=== PATIENT | female | born 1970 | race Caucasian/White ===

== ENCOUNTER 2024-10-07 08:55 | Outpatient (REF) | payer OTHER, SELFPAY ==
[2024-10-07 10:59] LABS: Estimated Average Glucose 108 mg/dL; Hemoglobin A1c % 5.4 % (<6.0)
[2024-10-07 11:35] LABS: Anion Gap 13 (12-20); Blood Urea Nitrogen 11 mg/dL (9-16); Calcium 9.7 mg/dL (8.4-10.2); Carbon Dioxide 27 mmol/L (22-29); Chloride 108 mmol/L (96-108); Estimated Glomerular Filt Rate > 60; Glucose Random 100 mg/dL (60-115); Potassium 4.5 mmol/L (3.3-5.1); Sodium 143 mmol/L (135-145)
[2024-10-07 11:43] LABS: Free T4 (Free Thyroxine) 0.97 ng/dL (0.71-1.85); Thyroid Stimulating Hormone 0.58 uIU/mL (0.32-4.0)
[2024-10-08 04:54] LABS: Triiodothyronine T3 Total 131 ng/dL (76-181)
[2024-10-08 18:09] LABS: Thyroid Peroxidase Antibodies 6 IU/mL (<9)
[2024-10-10 23:57] LABS: Thyroid Stimulating Immunoglob <89 % baseline (<140)
[2024-10-11 19:23] LABS: Thyrotropin Receptor Antibody <1.00 IU/L (<=2.00)
== END 2024-10-07 08:56 | disposition home or self-care (01) ==
LOC: HO.LAB 08:55
PROVIDERS: PCP Internal Medicine; Visit Provider Student in an Organized Health Care Education/Training Program
DX: E04.2 Nontoxic multinodular goiter (principal); E66.813 Obesity, class 3; Z68.41 Body mass index [BMI] 40.0-44.9, adult; E11.9 Type 2 diabetes mellitus without complications
CPT/HCPCS: 36415; 80048; 83036; 83520; 84439; 84443; 84445; 84480; 86376

== ENCOUNTER 2024-10-07 08:55 | Outpatient (AMB) | payer OTHER, SELFPAY ==
[2024-10-07 09:00] VITALS: BP 134/72; PULSE 62; O2SAT 98; BMI 43.4
--- NOTE | 2024-10-07 09:00 | A.OFFVIS_ITS ---
Vital Signs 3 10/07/24 09:00 Height 5 ft 7 in Weight 276 lb 14.409 oz BMI 43.4 BP 134/72 Blood Pressure Location Lt brachial Position Sitting Pulse 62 Pulse Source Pulse Oximeter Pulse Oximetry (%) 98 Oxygen Delivery Method Room Air Intake Visit Reasons: Thyroid goiter, obesity Intake Note: New patient present today for Thyroid goiter and obesity. Rn Baby Required: No Accompanied by: Self / Same As Patient Allergies ketoprofen Allergy (Mild, Verified 10/07/24 09:04) Swelling Medication List - Last Reconciled 10/07/24 by Cherry Martinez MD carvedilol 12.5 mg PO BID cholecalciferol (vitamin D3) 50 mcg PO DAILY dapagliflozin propanediol (Farxiga) 10 mg PO DAILY rosuvastatin 40 mg PO DAILY sacubitril-valsartan 24-26 mg (Entresto) 1 tab PO BID spironolactone 25 mg PO DAILY HPI Comments Details: 53-year-old female coming in today for initial evaluation of nontoxic multinodular goiter and obesity. Multinodular goiter Per patient was diagnosed with Graves disease 2009, was one year at that time , and then was trying for second , was seeing endo at [facility], was never started on any medicine. Per patient was reccomended radio active iodine but was a new mom so decided not to get it at the time . Was also diagnosed with thyroid nodules in 2022, per patient had US at [facility] and had FNA biopsy of 3 nodules per patient , per patient biopsy was benign , this was being managed by PCP, apparently had surveillance US in 2023 with stable nodules, I dont have any of these records , this is all per patient. Patient currently denies heat or cold intolerance, diarrhea or constipation, hair loss, anxiety, mood changes, changes in appearance of eyes or vision changes, tremors, increased diaphoresis or dry skin. ? Intermittent palpitations. Reports low energy Endorses some difficulty swallowing for a couple of years, pills , dry bites. Reports intermittent raspiness. No fullness or pressure sensation. Patient denies any history of childhood neck radiation. Denies having ever used lithium, amiodarone or biotin supplements. Patient denies any family history of thyroid cancer. Mother: thyroidectomy for nodules? Maternal GM: thyroidectomy for nodules? Sister : lobectomy for nodules? Was in [facility] during , got iodine prophylaxis. TSH 1.01 from Mar 2024 Obesity BMI 43.4 kg per m2 Current weight 276 lb no weight loss meds tried before Current weight is highest weight per patient Lowest weight she remembers was 235 lbs in 2019 when she was in her 40s achieved with keto diet lost 30 lbs Was overweight growing up, mother is now overweight , but was skinny growing up, siblings also skinny , both sisters Hystrectomy at 51 due to menorrhagia, ovaries intact, some intermittent hot flashes No history of DE or stroke. Comorbidites Type 2 DM , A1c 6.6% 02/21/24 seen on patients portal on phone done at [facility] down to 6.4 % in Mar 2024 with farxiga 10 mg daily , was on metformin in her 30s for PCOS and infertility, PCP prescribed Wegovy recently , was rejected by insurance HTN on spironolactone for 2 years , farxiga 10 mg daily since summer 2023 HLD on rosuvastatin PCOS, history of infertility Exercise : Walks an hour daily diet:currently avoiding carbs and focusing on more proteins Placing referral to field sales trainer. 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 [facility] Is not interested in weight loss surgery, apprehensive of it , motivated to lose weight with lifestyle modification and weight loss meds Physical exam General: sitting comfortably in no acute distress HEENT: normocephalic/atraumatic, , moist oral mucosa Neck: supple, symmetrical, Cardiac: normal heart sounds Pulm: normal breath sounds B/L, no added breath sounds Abd: not distended, no tenderness, no abdominal striae Extremities: no edema, Neuro: AAO x3, Speech: normal, no facial droop, moving all 4 extremities [facility] Medical History (Updated 10/07/24 @ 09:58 by Cherry Martinez MD) Diabetes mellitus Non-toxic multinodular goiter Obesity Surgical History (Updated 10/07/24 @ 09:07 by НАНА Carlton) History of hernia surgery H/O: hysterectomy H/O knee surgery Family History (Updated 10/07/24 @ 09:08 by АННА Carlton) Mother Uterine cancer Diabetes Father Heart attack Social History Alcohol intake: current Alcohol intake frequency: holidays/special occasions only Patient Tobacco Use Status: Never used Tobacco Assessment & Plan Assessment & Plan (1) Non-toxic multinodular goiter: Code(s): E04.2 - Nontoxic multinodular goiter Category: Medical Plan: 53-year-old female with no family history of thyroid cancer, however multiple family members with thyroid nodules, with the exposure to [place] in [facility], who received iodine prophylaxis coming in today to establish care for nontoxic multinodular goiter. Apparently this was diagnosed in 2022 and she has had FNA biopsy of most of her nodules, reportedly per patient was benign. Then had an ultrasound of the thyroid again last year in 2023 at [facility] which showed stable size of the nodules. All of this history is obtained from the patient, I do not have these records on me. We will obtain records from [facility]. At this time I will plan to repeat her thyroid ultrasound. She had normal TSH in March 2024, per patient she has also history of Graves disease diagnosed in 2009, where radioactive iodine was recommended but at that time she was and planning for another at age 41 so she did not want to go ahead with a it. Then she was lost to follow up. This was managed by endocrinology at [facility] at that time. Plan: -ordered TSH, free T4, total T3, TSH receptor, TSI and TPO antibodies -ordered ultrasound of the thyroid -obtain records of thyroid ultrasounds and FNA biopsy from [facility] -follow up in 6 weeks to discuss results (2) Obesity: Code(s): E66.9 - Obesity, unspecified Category: Medical Qualifiers: Body mass index: BMI 40.0-44.9 Obesity classification: adult class 3 (BMI >= 40) Obesity type: due to excess calories Serious obesity comorbidity presence: with serious comorbidity Qualified Code(s): E66.813 - Obesity, class 3; Z68.41 - Body mass index [BMI] 40.0-44.9, adult Plan: Patient with class 3 obesity with current BMI 43.4 kg per m2, current weight 276 lb which is patient's reported highest weight, with comorbidities of PCOS, hypertension, hyperlipidemia, type 2 diabetes mellitus, currently well- controlled on Farxiga. I reviewed with patient the importance of weight loss as it relates to decreasing the risk of worsening control of diabetes, cardiovascular disease, obstructive sleep apnea, arthritis. We reviewed the importance of decreasing total calorie consumption, minimizing fats and carbohydrates. We discussed the method of 500 calorie deficit per day using phone calorie apps such as Trippy Bandz or my fitness pal. Also placed referral to field sales trainer, she is very motivated to lose weight. She is already exercising with 1 hour walk daily. I have asked her to add resistance training to her exercise regimen about 2-3 days a week with weight lifting and resistance bands. Continue current aerobic activity. She is a candidate for weight loss surgery, however she is not interested in surgery at this time. She is very motivated to lose weight and is maintaining a good exercise regimen, plus some additional information giving regarding dietary education. In addition to lifestyle modification I would strongly believe that she is a good candidate for weight loss medications. I I would like to start her on Mounjaro which is a GLP 1/GI P agonist, patient would be an excellent candidate for this medication. No family history of thyroid cancer, no personal history of pancreatitis, no history of gallstones. No current alcohol use. This would be both for given diagnosis of type 2 diabetes mellitus as well as class 3 obesity. I discussed the adverse effects of GI intolerance, risk of pancreatitis and risk of medullary thyroid cancer seen in rodents but not human being. She has hypertension, hyperlipidemia, type 2 diabetes mellitus currently well- controlled on Farxiga and is at very high-risk of developing cardiovascular disease and diabetes and this medication we will result in about 15-20% weight loss which would be her target. She is not a good candidate for other weight loss medications which are less potent such as phentermine, as those only result in about 5% weight loss which is a short-term solution, 5% weight loss would not be getting her to her goal target. Plus weight management is a intermediate chronic treatment which requires medications that patients can be on safely for long periods of time. Plan: -start Mounjaro 2.5 mg weekly injection -lifestyle modification as advised above -field sales trainer referral placed -follow up in 6 weeks (3) Diabetes mellitus: Code(s): E11.9 - Type 2 diabetes mellitus without complications Category: Medical Qualifiers: Diabetes mellitus type: type 2 Diabetes mellitus intermediate insulin use: without intermediate use Diabetes mellitus complication status: without complication Qualified Code(s): E11.9 - Type 2 diabetes mellitus without complications Plan: Diagnosed in January 2024 when A1c was 6.6%, no long-term insulin use, no history of microvascular or macrovascular complications. Managed by PCP, most recent A1c 6.4% from March 2024. She was started on Farxiga 10 mg daily for both control of blood pressure as well it would help with management of her diabetes mellitus. Mounjaro is a GLP 1/GI P agonist that would help with weight management in this patient with a history of type 2 diabetes mellitus. Plan: -start Mounjaro 2.5 mg weekly injection -continue Farxiga 10 mg daily. Plan I spent 60 minutes in reviewing the record, seeing the patient and documenting in the medical record. Orders: Orders 2 Triiodothyronine T3 Total Today E04.2 - Nontoxic multinodular goiter Thyroid Stimulating Immunoglob Today E04.2 - Nontoxic multinodular goiter US thyroid Today E04.2 - Nontoxic multinodular goiter Basic Metabolic Panel Today E11.9 - Type 2 diabetes mellitus without complications Thyroid Stimulating Hormone Today E04.2 - Nontoxic multinodular goiter Free T4 (Free Thyroxine) Today E04.2 - Nontoxic multinodular goiter Thyrotropin Receptor Antibody Today E04.2 - Nontoxic multinodular goiter Thyroid Peroxidase Antibodies Today E04.2 - Nontoxic multinodular goiter Hemoglobin A1c Today E11.9 - Type 2 diabetes mellitus without complications Referrals 2 Nutrition/Dietitian Referral E66.813 - Obesity, class 3, Z68.41 - Body mass index [BMI] 40.0-44.9, adult Medications: New 2 tirzepatide (Mounjaro) for 4 weeks 2.5 mg (0.5 mL) subcut QWEEK 2 mL 3RF E11.9 - Type 2 diabetes mellitus without complications, E28.2 - Polycystic ovarian syndrome, E66.813 - Obesity, class 3, E78.5 - Hyperlipidemia, unspecified, I10 - Essential (primary) hypertension, Z68.41 - Body mass index [BMI] 40.0-44.9, adult Patient Instructions: For thyroid Do blood work Do ultrasound of the thyroid , someone will call you to schedule this Weight loss counselling ?Limit added sugars to less than 25 grams daily. There are 4.2 grams of sugar per teaspoon of sugar. A teaspoon of honey has 6 grams of sugar! Bread also can have more sugar than you think-check labels ?No soda or juices. Drink water, unsweetened iced tea or seltzer ?Limit eating out/take out or prepared meals to twice weekly at most ?Avoid red meat, hot dogs, doshi and deli meat. Substitute plant protein for animal protein as much as you can. Beans, nuts, tofu, soy milk ?Limit cheese to 1 ounce a few times weekly ?Eat high fiber foods like beans, apples and green veggies, salsa is a great snack with whole grain cracker like Wasa ?Look for the whole grain stamp when choosing bread etc. Aim for 48 grams of whole grains daily. Whole wheat does not equal whole grains! ?Don't keep tempting treats in the house. Go out once in a while for a treat. ?Don't eat anything deep fried or cream based-no sour cream Download the mark lose it and aim for 500 calories deficit per day to plan to lose 1 lb per week Start adding some weights to your exercise regimen 2-3 days a week Continue aerobic exercise with walking/jogging Referral to field sales trainer placed Start Mounjaro 2.5 mg weekly injection , please let me know when you do start it as I keep track of dates to uptitrate. Do labs Coding Level of Care Code New Pt Level 5 (42483) Diagnoses Non-toxic multinodular goiter E04.2 Class 3 severe obesity due to excess calories with serious comorbidity and body mass index (BMI) of 40.0 to 44.9 in adult E66.813; Z68.41 Body mass index: BMI 40.0-44.9 Obesity classification: adult class 3 (BMI >= 40) Obesity type: due to excess calories Serious obesity comorbidity presence: with serious comorbidity Type 2 diabetes mellitus without complication, without long-term current use of insulin E11.9 Diabetes mellitus type: type 2 Diabetes mellitus intermediate insulin use: without intermediate use Diabetes mellitus complication status: without complication Time Spent (min) 60
--- OUTSIDE RECORDS SUMMARY | 2024-10-07 09:29 | XMS_ITS | Data Portability ---
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 Plan of Treatment Reminders Order Date Submit Date Provider Last Modified By Organization Details Last Modified Time Details Appointments None recorded. Lab TSH, serum or plasma 2014 015 abolcun Not available 5 10:15:35 lipid panel, serum 2014 015 abolcun Not available 5 10:15:35 ESR (erythroc yte sedimenta tion rate), blood 2014 015 abolcun Not available 5 10:15:35 CBC w/ auto diff 2014 015 abolcun Not available 5 10:15:35 urinalysi s, complete 2014 015 abolcun Not available 5 10:15:35 CMP, serum or plasma 2014 015 abolcun Not available 5 10:15:35 rapid strep group A, throat 2013 014 broderick In-Office Order, Internal Use Only DO Not Attach Compendium DO Not Attach Compendium, Do Not Delete/merge, [id number] 4 12:34:37 Referral nutrition ist/dieti maribel referral 2014 015 broderick Not available 5 08:02:04 medical weight loss program referral - For assistanc e with weight loss. 2014 015 george Philippe MD, [address], [place], [address], 5 10:23:06 Procedures None recorded. Surgeries None recorded. Imaging x-ray, chest, 2 view 2014 015 [facility], [address], [place], [address], 5 10:50:56 ultrasoun d, axilla - for eval of left axillary swelling. 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 broderick Not available 09/10/2014 08:02:03 Patient Instructions Encounter Date Encounter Id Patient Instructions Last Modified By Organization Details Last Modified Time 12/01/2013 [id number] strep throat: care instructions george Not available 12/02/2013 16:20:12 sore throat: care instructions abolcun Not available 12/02/2013 16:20:12 09/02/2014 [id number] goiter: care instructions awychowski Not available 09/10/2014 08:02:03 starting a weight loss plan: care instructions broderick Not available 09/10/2014 08:02:03 Nutrition Referral and Weight Management Follow-up Information broderick Not available 09/10/2014 08:02:03 Reason for Referral Manager Philosophy/dietitian Refer ral for Body mass index 30+ - obesity Referring Physician: Levi Palumbo, [facility], Encounter Date: 09/02/2014 Medical Weight Loss Program Referral for Body mass index 30+ - obesity For assistance with weight loss. Referring Physician: Levi Palumbo [facility], Encounter Date: 09/02/2014 Results Created Date Observation Date Name Description Value Unit Range Abnormal Flag Note LastModifiedBy Organization Detail LastModifiedTime 12/02/19 14 12/01/2013 rapid strep group A, throa t Strep positi ve Not Available In-Office Order Internal Use Only DO Not Attach Compendium DO Not Attach Compendium, Do Not Delete/merge, [id number] 12/01/2013 11:30:23 03/16/20 14 05/13/2012 US soft tissu e head/ neck Final Result Name: IZZY NAYAK 4 Sex: F : 1970 Locati on: F Admitt ing Physic gayathri: Reques ting Physic gayathri: Levi garcia Exam: US-ST HEAD/N ROCIO 2012 08:18 EXAM: Thyroi d Ultras ound INDICA TION: Abnorm al thyroi d functi on tests, irregu lar menses TECHNI QUE: Real time ultras ound of the thyroi d is perfor med with a high-f requen cy transd ucer. No previo us US is availa ble for compar monae. Findin gs: Both lobes of the thyroi d are visual ized. Both lobes are enlarg ed and hetero geneou s in echote xture with increa sed diffus e vascul ar flow. The right lobe measur es 6.1 x 2.8 x 3.1 cm in length , height and width for a volume of 28 cc and the left lobe measur es 6.2 x 2.7 x 3.5 cm in length , height and width for a volume of 31 cc. The isthmu s measur es 1.0 cm. No focal masses or cysts are seen. Impres polly: Enlarg ed hetero geneou s thyroi d with diffus adwoa increa sed vascul ar flow may reflec t early Hashim julio's thyroi ditis or Graves ' diseas e. No focal masses identi fied. Interp reting Radiol ogist: Stacy yusuf MD Attend ing Radiol ogist: Stacy yusuf MD Finali zing Radiol ogist: Stacy yusuf MD Transc ribed Date: Finali zed Date: 2012 08:37 Dictat ed By: Stacy Ashraf MD, V Dictat ed Date/T gisel: 8:38 am Review ed By: Stacy Ashraf MD, V Signed By: Stacy Ashraf MD, V Signed Date/T gisel: 8:38 am Transc ribed By: GUSTAVO Transc ribed Date/T gisel: 8:38 am Patien t Class: Outpat ient build [facility] (Centralized Electronic Ordering - All Locations) Patient Can Go To The Location Of Their Choice, [id number] 04/07/2015 04:10:25 09/09/19 15 09/07/2014 mm digit al mammo bilat eral Final Result Name CLARISA MAGANA 4 Sex F 08 1970 Locati on F Admitt ing Physic gayathri Reques ting Physic gayathri Levi Horton ski Exam DIGITA L MAMMOG KLAUS DIAGNO STIC BILAT 09 08 2014 10 06 Histor y Palpab le findin g left axilla . A metall ic marker is placed over the palpab le left axilla ry findin g. Digita l diagno stic bilate ral mammog boogie was perfor med. In additi on to the routin e views a tangen tial spot magnif icatio n view of the palpab le findin g was taken. Compar monae is made with previo us from 2012. The breast tissue consis ts of scatte red fibrog landul ar densit ies (appro ximate ly 25-50 glandu lar). No suspic ious masses suspic ious cluste rs of calcif icatio ns or areas of myesha ectura l distor tion are seen in either breast . No eviden ce of axilla ry adenop athy. In the area of clinic al concer n there is predom inantl y fatty tissue with no suspic ious findin gs in this region . Ultras ound of the palpab le left axilla ry findin g was then perfor med. No eviden ce of suspic ious axilla ry lesion . There is predom inantl y fatty tissue in the area of clinic al concer n and the appear ance is consis tent with lipoma or access ory fibrog landul ar tissue . Impres polly 1. Bilate ral mammog boogie shows no findin gs to sugges t malign yoly. Predom inantl y fatty tissue in the left axilla ry region in the area of clinic al concer n. 2. Ultras ound of the palpab le findin g in the left axilla reveal s no suspic ious findin gs. The mammog raphic and sonogr aphic appear ance are sugges tive of lipoma or access ory breast tissue . Provid ed there are no concer burke change s clinic ally recomm end bilate ral screen ing mammog boogie in one year. BI-RAD S 2 (Benig n) Lay letter mailed to ag curry Comput er-aid ed detect ion (CAD) was utiliz ed in the interp retati on of this study. WSN RII-WA [id number]-[id number] 04 Interp reting Radiol ogist Aroldo Tobias MD Attend ing Radiol ogist Aroldo Tobias MD Finali zing Radiol ogist Aroldo Tobias MD Transc ribed Date 09 08 2014 10 Finali zed Date 09 08 2014 10 Dictat ed By: Aroldo Tobias MD Dictat ed Date/T gisel: 10:28 am Review ed By: Aroldo Tobias MD Signed By: Aroldo Tobias MD Signed Date/T gisel: 10:28 am Transc ribed By: GUSTAVO Transc riptio n Date/T gisel: 10:28 am Birads : Ag curry Class: Outpat ient build [facility] (Centralized Electronic Ordering - All Locations) Patient Can Go To The Location Of Their Choice, [id number] 04/07/2015 04:10:40 09/09/19 15 09/07/2014 US breas t left Final Result Name CLARISA MAGANA 4 Sex F 12 21 1970 Locati on F Admitt ing Physic gayathri Reques ting Physic gayathri Levi Horton ski Exam US-RADHA AST UNILAT LEFT 09 08 2014 10 22 Please refer to the report of the bilate ral diagno stic mammog klaus from the same date for detail s. WSN RII-WA S-[id number] 04 Interp reting Radiol ogist Aroldo Tobias MD Attend ing Radiol ogist Aroldo Tobias MD Finali zing Radiol ogist Aorldo Tobias MD Transc ribed Date 09 08 2014 11 49 Finali zed Date 09 08 2014 11 49 Dictat ed By: Aroldo Tobias MD Dictat ed Date/T gisel: 11:52 a Review ed By: Aroldo Tobias MD Signed By: Aroldo Tobias MD Signed Date/T gisel: 11:52 am Transc ribed By: GUSTAVO Transc ribed Date/T gisel: 11:52 am Patien t Class: Outpat ient build [facility] (Centralized Electronic Ordering - All Locations) Patient Can Go To The Location Of Their Choice, [id number] 04/07/2015 04:10:40 Result Notes None recorded. Problems Name Problem SNOMED Code Status Onset Date Resolution Date Notes Provider Name and Address Organization Details Recorded Time Acute pharyngi tis 777865000 Completed 09/02/2014 Levi Palumbo MD [address] [facility] [address], [place], [address] , [facility] 5 10:28:07 Streptoc occal sore throat 84196745 Completed 09/02/2014 Levi Palumbo MD [address] [facility] [address], [place], [address] , [facility] 5 10:28:07 Patient status finding [id number] Completed 201212/08/2013 RECORDED 11/21/19 13 9:22AM BY CHIKIS PALACIOS MA, ANNOTATI ON/ADDEN DUM Not Available [facility] 4 05:22:48 Cough 56931053 Completed 201312/08/2013 IMPRESSI ON: FOLLOWIN G A IV STEROID PULSE I SUSPECT THIS IS GERD RELATED VS REBOUND ALLERGY SYMPTOMS . REASSESS AFTER TRYING TO TREAT BOTH POSSIBIL ITIES.; RECORDED 08/29/19 14 2:30PM BY AMAN GRIGGS MA, ANNOTSAMY ON/ADDEN DUM Not Available [facility] 4 05:22:48 Influenz a vaccine needed 43721044007 06 Completed 201112/08/2013 RECORDED 04/10/20 12 1:59PM BY CHIKIS PALACIOS MA, OFFICE VISIT Not Available [facility] 4 05:22:48 Body mass index 30+ - obesity 601341011 Active Levi aPlumbo MD [address] [address], [place], [address] , [facility] 5 08:02:03 Mass of axilla 677533917 Active Levi Palumbo MD [address] [address], [place], [address] , [facility] 5 08:02:03 Mammogra phy abnormal 466332446 Active Levi Palumbo MD [address] [address], [place], [address] , [facility] 5 12:50:48 Thyroid function tests abnormal 432737583 Active 2013 IMPRESSI ON: U/S C/W EARLY THYROIDI TIS. LABS UNREMARK ABLE. HAS APPT WITH ENDO, WILL REPEAT LABS PRIOR.; RECORDED 08/29/19 14 2:36PM BY AMAN GRIGGS MA, OFFICE VISIT Not Available [facility] 4 05:22:48 Adult health examinat ion Completed 201309/02/2014 IMPRESSI ON: IMMUNIZA TION STATUS UTD WILL SCREEN BASED ON RISK FACTORS. REGULAR DENTAL CARE AND SEATBELT USE ADVISED. 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 CERVICAL AND BREAST CANCER SCREENIN G ARE UTD. ADVANCE DIRECTIV ES SURINDER [place], FORM PROVIDED .; RECORDED 08/29/19 14 3:38PM BY LEVI Carlton MD, OFFICE VISIT Levi Palumbo MD [address] [facility] [address], [place], [address] , [facility] 5 10:28:07 Patient status finding [id number] Completed 201211/11/2013 RECORDED 11/21/19 13 9:22AM BY CHIKIS PALACIOS MA, ANNOTATI ON/ADDEN DUM Not Available [facility] 4 14:00:59 Screenin g for malignan t neoplasm of breast Completed 201309/02/2014 RECORDED 08/29/19 14 2:38PM BY AMAN GRIGGS MA, OFFICE VISIT Levi Palumbo MD [address] [facility] [address], [place], [address] , [facility] 5 10:28:07 Screenin g for malignan t neoplasm of cervix Completed 201309/02/2014 RECORDED 08/29/19 14 2:36PM BY AMAN GRIGGS MA, OFFICE VISIT Levi Palubmo MD [address] [facility] [address], [place], [address] , [facility] 5 10:28:08 Displace ment of cervical interver tebral disc 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 REASSESS AFTER TRYING TO TREAT BOTH POSSIBIL ITIES.; RECORDED 08/29/19 14 2:30PM BY AMAN GRIGGS MA, ANNOTATI ON/ADDEN DUM Not Available [facility] 4 14:00:59 Allergic rhinitis 02154095 Active 2013 RECORDED 08/29/19 14 2:36PM BY AMAN GRIGGS MA, OFFICE VISIT Not Available [facility] 4 05:22:48 Influenz a vaccine needed 69842355215 06 Completed 201111/11/2013 RECORDED 04/10/20 12 1:59PM BY CHIKIS PALACIOS MA, OFFICE VISIT Not Available [facility] 4 14:00:59 Goiter 1840050 Active 2013 RECORDED 08/29/19 14 2:36PM BY AMAN GRIGGS MA, OFFICE VISIT Levi Palumbo MD [address] [facility] [address], [place], [address] , [facility] 5 08:02:03 Pure hypergly ceridemi a 661390432 Active 2013 IMPRESSI ON: WILL REASSESS .; RECORDED 08/29/19 14 3:39PM BY LEVI Carlton MD, OFFICE VISIT Levi Palumbo MD [address] [facility] [address], [place], [address] , [facility] 5 08:02:03 Freddie estevez 853576103 Active 2013 RECORDED 08/29/19 14 2:36PM BY AMAN GRIGGS MA, OFFICE VISIT Not Available [facility] 4 05:22:49 Patient status finding [id number] Completed 201309/02/2014 RECORDED 08/29/19 14 2:36PM BY AMAN GRIGGS MA, OFFICE VISIT Levi Palumbo MD [address] [facility] [address], [place], [address] , [facility] 5 10:28:07 Primary cardiomy opathy 38504206 Active 2013 STORY: PVC; IMPRESSI ON: ASYMPTOM ATIC. DR ROMAN LEFT THE AREA, PT HAS NOT ESTABLIS HED WITH NEW CARDIOLO GIST. 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 HEALTHIE R DIET AND EXERCISE HABITS ADVISED. ; RECORDED 08/29/19 14 3:38PM BY LEVI Carlton MD, OFFICE VISIT Not Available [facility] 4 05:22:49 Pain in limb 85918755 Completed 201309/02/2014 STORY: NL EMG AND MRI UNREMARK ABLE FOR NERVE COMPRESS ION; RECORDED 08/29/19 14 2:36PM BY AMAN GRIGGS MA, OFFICE VISIT Levi Palumbo MD [address] [facility] [address], [facility] [place], [address] , [facility] 5 10:28:44 Problem Notes None recorded. Procedures Surgical History Date Name Laterality Status Provider Name and Address Organization Details Recorded Time Other completed Chikis Palacios MA [facility] 09/02/2014 09:58:05 Imaging Results None recorded. Procedure Notes None recorded. Medical Equipment None Reported. Allergies No known drug allergies Medications Name Sig Start Date Stop Date Status Note LastModified by Organization Details LastModified Time Prilosec 20 mg capsule,d elayed release DAILY 08/28 completed RECORDED 4 2:52PM BY AMAN BRANTLEY MA, OFFICE VISIT; Not Available Not Available Not Available penicilli n V potassium 500 mg tablet Take 1 tablet every 12 hours by oral route for 10 days. 12/11 completed Not Available Not Available Not Available loratadin e 10 mg tablet DAILY 08/28 completed RECORDED 4 2:52PM BY AMAN BRANTLEY MA, OFFICE VISIT; Not Available Not Available Not Available multivita min DAILY active RECORDED 4 2:36PM BY AMAN BRANTLEY MA, OFFICE VISIT; Not Available Not Available Not Available Vitals Date Recorded Oxygen saturation Oxygen saturation in Arterial blood by Pulse oximetry Body weight Heart rate Body mass index (BMI) Body height Body temperature Systolic blood pressure Diastolic blood pressure Provider Name and Address Organization Details Last Updated DateTime 5 99 % 99 % 186703. 0925 g 84 /min 38.9 kg/m2 170.815 cm 98.5 [degF] 142 mm[Hg] 84 mm[Hg] Chikis Palacios MA [facility] 5 10:07:09 Date Recorded Oxygen saturation Oxygen saturation in Arterial blood by Pulse oximetry Body weight Body temperature Body height Body mass index (BMI) Heart rate Systolic blood pressure Diastolic blood pressure Provider Name and Address Organization Details Last Updated DateTime 4 99 % 99 % 049890. 79811 g 99.4 [degF] 170.815 cm 36.4 kg/m2 87 /min 120 mm[Hg] 79 mm[Hg] Chikis Palacios MA [facility] 4 11:30:23 Social History Question Answer Notes LastModified by Organizat ion Details LastModified Time Tobacco Smoking Status Never Smoker Not Available [facility] 03/02/2020 03:36:38 Do You Have An Advance Directive? Yes [id number] Information not available 03/02/2020 What Is Your Level Of Caffeine Consumption? Moderate Coffee [id number] Information not available 03/02/2020 What Type Of Diet Are You Following? REGULAR [id number] Information not available 03/02/2020 Which Illicit Or Recreational Drugs Have You Used? None [id number] Information not available 03/02/2020 Education 2 Year College Information not available 09/02/2014 Live Alone Or With Others? With Others Information not available 09/02/2014 How Many Children Do You Have? 2 [id number] Information not available 03/02/2020 Seat Belts Used Routinely Yes Information not available 09/02/2014 Do You Use Sunscreen Routinely? Yes [id number] Information not available 03/02/2020 Sex: Unknown Functional Status Question Answer Note LastModified by Organizat ion Details LastModified Time What is your level of alcohol consumption? Occasional [id number] Information not available 03/02/2020 Are you currently employed? 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 None [id number] Information not available 03/02/2020 Mental Status None recorded. Family History Relationship Description Onset Age of this Age Resolved Age Notes LastModified by Organization Details LastModified Time Mother Hypercholest erolemia awychowski Not available 09/02 10:30:39 Mother Hypertensive disorder awychowski Not available 09/02 10:30:39 Mother Malignant neoplasm of uterus awychowski Not available 09/02 10:30:39 Mother Disorder of thyroid gland awychowski Not available 09/02 10:30:39 Mother Diabetes mellitus awychowski Not available 09/02 10:30:39 Sister Disorder of thyroid gland awychowski Not available 09/02 10:30:39 Maternal Grandmother Disorder of thyroid gland awychowski Not available 09/02 10:30:39 Father Coronary arterioscler osis awychowski Not available 09/02 10:30:39 Medical History Condition Response Hyperthyroidism Y Gynecological History Statement/Question Response Date of Last Pap Smear Date of Last Colonoscopy Most Recent Mammogram Most Recent Bone Density Obstetrics History GPAL:G 0 P 0 0 0 0 Immunizations Vaccine Type Date Status Note Provider Nam e and Address Organization Details Recorded Time Tdap 9 completed Not Available [facility] 11/11/2013 13:49:14 influenza, seasonal, intradermal, preservative free 2 completed Not Available [facility] 11/11/2013 13:49:14 Past Encounters Encounter ID Performer Location Encounter Start Date Encounter Closed Date Diagnosis/Indication Diagnosis SNOMED-CT Code Diagnosis ICD10 Code Diagnosis Note [id number] Levi Palumbo MD Main Office [address] [address] 12/01/2013 11:15:09 12/01/2013 11:56:31 Acute pharyngitis [id number] Streptococ cristhian sore throat 64317171 [id number] [employer]ce [address] [facility] [place] [address] 04/10/2012 00:00:00 [id number] auto[employer]Comm erce [address] [place], [place] [address] 07/03/2012 00:00:00 [id number] auto[employer] erce [address] [facility] [place], [place] [address] 11/20/2012 00:00:00 [id number] auto[employer]Comm erce [address] [place] [place] [address] 08/28/2013 00:00:00 [id number] Levi Palumbo MD Main Office [address] [facility] [address] [place] [address] 09/02/2014 09:49:35 09/02/2014 10:55:39 Adult health examination 668045793 Immunizati on status utd, flu advised in the Fall. Regular dental and ophtho care advised as well as seatbelt and sunscreen use. Distracted driving discussed. Advance directives in place. Body mass index 30+ - obesity 827859893 Pure hyperglyceridemia 290695124 Will reassess and consider rx of >500. Goiter 4345192 Mass of axilla 125775729 ? lymph node vs lipoma vs other soft tissue mass. Depending on result may need surgical consultati on. Health Concerns Section Related Observation LastModified by Organization Detai ls LastModified Time None Recorded Concern Status LastModified by Organization Details LastModified Time None Recorded Advance Directives Directive Y: Payers Encounter Date Sequence Insurance Name Policy Number Policy Wang Covered Member ID Wang Member ID Guarantor Name 12/01/2013 1 [facility] (O) [id number] [id number] Izzy Thomas 09/02/2014 1 [facility] (PPO) [id number] Izzy Martha [id number] Izzy Martha OBGyn Episode No OBEpisode recorded.
== END 2024-10-07 09:58 | disposition home or self-care (01) ==
LOC: HO.ENCR 08:56
PROVIDERS: PCP Internal Medicine; Visit Provider Student in an Organized Health Care Education/Training Program
DX: E04.2 Nontoxic multinodular goiter (principal); E66.813 Obesity, class 3; Z68.41 Body mass index [BMI] 40.0-44.9, adult; E11.9 Type 2 diabetes mellitus without complications
CPT/HCPCS: 99205

== ENCOUNTER 2024-11-04 08:28 | Outpatient (AMB) | payer OTHER, SELFPAY ==
--- NOTE | 2024-11-04 08:34 | MHC.AMNUTRGE ---
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1) 4.5 mmol/L 10/07/24 Chloride, (96-108) 108 mmol/L 10/07/24 Carbon Dioxide, (22-29) 27 mmol/L 10/07/24 Calcium, (8.4-10.2) 9.7 mg/dL 10/07/24 LLH-Qmocwgf-Hb.Jeor Equation Height: 5 ft 7 in Weight: 263 lb Resting Metabolic Rate: 1838.54 Calculated Activity Level: Sedentary Calories Needed to Maintain Weight: 2206.25 Diagnosis Nutrition problem #1: food nutri know defi As related to (etiology) #1: diagnosis As evidenced by (sign/symptom) #1: high BMI (41.2 (11/21)) [facility] Medical History (Updated 10/07/24 @ 09:58 by Cherry Martinez MD) Diabetes mellitus Non-toxic multinodular goiter Obesity Surgical History (Updated 10/07/24 @ 09:07 by АННА Carlton) History of hernia surgery H/O: hysterectomy H/O knee surgery Family History (Updated 10/07/24 @ 09:08 by АННА Carlton) Mother Uterine cancer Diabetes Father Heart attack Social History (Updated 10/07/24 @ 09:10 by АННА Carlton) Alcohol intake: current Alcohol intake frequency: holidays/special occasions only Patient Tobacco Use Status: Never used Tobacco Assessment & Plan Assessment & Plan (1) Diabetes mellitus: Code(s): E11.9 - Type 2 diabetes mellitus without complications Category: Medical Qualifiers: Diabetes mellitus type: type 2 Diabetes mellitus buttermaker continuous churn insulin use: without buttermaker continuous churn use Diabetes mellitus complication status: without complication Qualified Code(s): E11.9 - Type 2 diabetes mellitus without complications Plan: Wt: 119 Kg ( 11/21 ) Est kcal needs as per MSJ: 2200 (40% carb, 30% protein/fat) Est fluid needs as per 25-30 ml/d: 3600 Est prot per day as per 1 g/kg bw: 120 Recommend fiber intake : 8-10 g per day and gradually increase to 25-28 g per day for women and 35-38 g for men or as tolerated Recommend sodium intake per day : less than 2300 mg Educated patient on: ( R = reviewed V = verbalizes understanding N/R = needs review N/A = not applicable Food sources of carbohydrate, adequate serving sizes and its role in various health conditions: R Differences between complex carbohydrates a simple carbohydrates, role of fiber in diet: R Hydration : R Lean protein sources of foods: R Differences between types of fats and role in diet (mono on saturated fat fatty acids, saturated fatty acids, trans fats): R V N/R Food sources of sodium in salt and healthy modifications for heart health in kidney health: R V R/V Vitamins and minerals: R V N/R Healthy plate method concept: R Physical activity: Benefits a precaution: R Hypoglycemia protocol (rule of 15): R V N/R Dietary prevention of Hyperglycemia: R Patient Instructions: Practice mindful eating Choose complex carbohydrates, reducing total carb to less than 60 g at meal (at least a serving of starchy vegetables, fruit and milk) following healthy plate method - see meal ideas Coding Level of Care Code Nutr Indiv Intake (52186) Diagnoses Type 2 diabetes mellitus without complication, without long-term current use of insulin E11.9 Diabetes mellitus type: type 2 Diabetes mellitus buttermaker continuous churn insulin use: without detention use Diabetes mellitus complication status: without complication Time Spent (min) 30
[2024-11-04 08:35] VITALS: BMI 41.2
--- OUTSIDE RECORDS SUMMARY | 2024-11-04 08:35 | XMS_ITS ---
Author Name [facility] Organization Unknown History of Medication Use Medication Directions Dispensed Refills Start Date End Date Stat us triamcinolone acetonide 40 mg/mL suspension for injection Take 40 mg by injection route. 04/04/2024 active triamcinolone acetonide 40 mg/mL suspension for injection active lidocaine (PF) 100 mg/5 mL (2 %) injection syringe active acetaminophen 300 mg-codeine 30 mg tablet TAKE 1-2 TABLETS BY MOUTH EVERY 6 HOURS NEEDED FOR PAIN active amoxicillin 500 mg capsule TAKE 1 CAPSULE BY MOUTH THREE TIMES DAILY active Entresto 24 mg-26 mg tablet TAKE 1 TABLET BY MOUTH TWICE DAILY active spironolactone 25 mg tablet TAKE 1 TABLET BY MOUTH DAILY active Problems Problem Status Onset Date Problem Type Date of Resoluti on Source Osteoarthritis of right knee joint active 2024-04-04 ProblemAct ENS_AONECT Encounters Encounter Type Encounter Reason Primary Diagnosis Location Date Ambulatory [facility] [place] 04/11/2024 Ambulatory [facility] 04/10/2024 Ambulatory [facility] [place] 04/08/2024 Ambulatory [facility] [place] 04/04/2024 Ambulatory [facility] [place] 04/04/2024 Ambulatory [facility] [place] 04/04/2024 Ambulatory [facility] [place] 04/04/2024 Ambulatory [facility] [place] 04/04/2024 Ambulatory [facility] [place] 03/31/2024 Ambulatory [facility] [place] 03/31/2024
--- OUTSIDE RECORDS SUMMARY | 2024-11-04 08:36 | XMS_ITS | Patient Health Record ---
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 FINDINGS: There is no evidence of acute or healing fracture, dislocation or bone lesion. Mild tricompartmental degenerative osteoarthritis but no evidence of osteochondral defect or intra-articular loose body. No evidence of joint effusion. IMPRESSION: Mild tricompartmental degenerative osteoarthritis but no acute abnormality. WSN: [id number] Ordering Physician: Onelia Daugherty Dictated By: Parmjit JIMENEZ, Mj Tejada Hemoglobin [id number] Reviewed date:04/24/2024 10:53:00 AM Interpretation: Performing Lab:[facility], [address] [facility], Phone - [phone], Director - Kevin Notes/Report: Hemoglobin A1c 6.4 4.8-5.6 % . Prediabetes: 5.7 - 6.4 Diabetes: >6.4 Glycemic control for adults with diabetes: <7.0 Magnesium-[id number] Reviewed date:04/24/2024 10:53:00 AM Interpretation: Performing Lab:[facility], [facility], Phone - [phone], Director - MDJodry Notes/Report: Magnesium 2.1 1.6-2.3 mg/dL CBC With Differential/Platel et-[id number] Reviewed date:04/24/2024 10:53:00 AM Interpretation: Performing Lab:[facility], [address] [place] [address], Phone - [phone], Director - MDJodry Notes/Report: WBC 14.3 3.4-10.8 x10E3/uL RBC 5.28 3.77-5.28 x10E6/uL Hemoglobin 15.6 11.1-15.9 g/dL Hematocrit 46.5 34.0-46.6 % MCV 88 79-97 fL MCH 29.5 26.6-33.0 pg MCHC 33.5 31.5-35.7 g/dL RDW 13.4 11.7-15.4 % Platelets 273 150-450 x10E3/uL Neutrophils 61 Not Estab. % Lymphs 31 Not Estab. % Monocytes 6 Not Estab. % Eos 1 Not Estab. % Basos 0 Not Estab. % Neutrophils (Absolute) 8.7 1.4-7.0 x10E3/uL Lymphs (Absolute) 4.5 0.7-3.1 x10E3/uL Monocytes(Absolute) 0.8 0.1-0.9 x10E3/uL Eos (Absolute) 0.2 0.0-0.4 x10E3/uL Baso (Absolute) 0.1 0.0-0.2 x10E3/uL Immature Granulocytes 1 Not Estab. % Immature Grans (Abs) 0.1 0.0-0.1 x10E3/uL Albumin/Creatinine Ratio,Uri ne-[id number] Reviewed date:04/24/2024 10:53:00 AM Interpretation: Performing Lab:[facility] [address] [place] [address], Phone - [phone], Director - MDJodry Notes/Report: Creatinine, Urine 109.0 Not Estab. mg/dL Albumin, Urine 16.2 Not Estab. ug/mL Alb/Creat Ratio 15 0-29 mg/g creat Normal: 0 - 29 Moderately increased: 30 - 300 Severely increased: >300 B-Type Natriuretic Peptide-1 49465 Reviewed date:04/24/2024 10:53:00 AM Interpretation: Performing Lab:[facility], [address] [place] [address], Phone - [phone], Director - Kevin Notes/Report: B-Type Natriuretic Peptide 14.5 0.0-100.0 pg/m L Siemens ADVIA Centaur XP methodology Comp. Metabolic Panel (14)-3 Reviewed date:04/24/2024 10:53:00 AM Interpretation: Performing Lab:[facility], [address] [place] [address], Phone - [phone], Director - Kevin Notes/Report: Glucose 75 70-99 mg/dL BUN 12 6-24 mg/dL Creatinine 0.74 0.57-1.00 mg/dL eGFR 97 >59 mL/min/1.73 BUN/Creatinine Ratio 16 9-23 Sodium 137 134-144 mmol/L Potassium 4.7 3.5-5.2 mmol/L Chloride 99 96-106 mmol/L Carbon Dioxide, Total 23 20-29 mmol/L Calcium 9.6 8.7-10.2 mg/dL Protein, Total 7.2 6.0-8.5 g/dL Albumin 4.5 3.8-4.9 g/dL Globulin, Total 2.7 1.5-4.5 g/dL Bilirubin, Total 0.7 0.0-1.2 mg/dL Alkaline Phosphatase 115 44-121 IU/L AST (SGOT) 14 0-40 IU/L ALT (SGPT) 14 0-32 IU/L LP+Non-HDL Cholesterol-42464 5 Reviewed date:04/24/2024 10:53:00 AM Interpretation: Performing Lab:[address], Phone - [phone], Director - Kevin Notes/Report: Cholesterol, Total 140 100-199 mg/dL Triglycerides 120 0-149 mg/dL HDL Cholesterol 59 >39 mg/dL VLDL Cholesterol Pedro Pablo 21 5-40 mg/dL LDL Chol Calc (NIH) 60 0-99 mg/dL Non-HDL Cholesterol 81 0-129 mg/dL UA/M w/rflx Culture, Routine -[id number] Reviewed date:04/24/2024 10:53:00 AM Interpretation: Performing Lab:[facility], [address] [place] [address], Phone - [phone], Director - Kevin Notes/Report: Specific [place] 1.017 1.005-1.030 pH 5.5 5.0-7.5 Urine-Color Yellow Yellow Appearance Clear Clear WBC Esterase Trace Negative Protein Negative Negative/Trace Glucose Negative Negative Ketones Negative Negative Occult Blood Negative Negative Bilirubin Negative Negative Urobilinogen,Semi-Qn 0.2 0.2-1.0 mg/dL Nitrite, Urine Negative Negative Microscopic Examination See below: Micr oscopic was indicated and was performed. Urinalysis Reflex This speci men has reflexed to a Urine Culture. WBC 0-5 0 - 5 /hpf RBC None seen 0 - 2 /hpf Epithelial Cells (non renal) 0-10 0 - 10 /hpf Casts None seen None seen /lpf Bacteria Few None seen/Few Urine Culture, Routine Final report Result 1 Mixed urogenital scott Greater than 100,000 colony forming units per mL TSH reflex to [id number] Reviewed date:04/24/2024 10:53:00 AM Interpretation: Performing Lab:[facility] [place], [address] [place] [address], [place], Phone - [phone], Director - Kevin Notes/Report: TSH 1.100 0.450-4.500 uIU/mL US Thyroid Reviewed date:05/23/2024 11:19:24 AM Interpretation: Performing Lab: Notes/Report: US Soft Tissue Reviewed date:11/07/2023 09:58:53 PM Interpretation: Performing Lab: Notes/Report: US Soft Tissue Head/Neck INDICATION/CLINICAL QUESTION: Nontoxic thyroid nodule. COMPARISON: 05/14/2012 FINDINGS: RIGHT THYROID LOBE: 6.9 x 3.2 x 4.2 cm, volume 48 cc. * 1.9 x 1.3 x 1.7 cm anterior midportion poorly marginated solid iso to slightly hyperechoic nodule without echogenic foci (TR 3). * The technologist measured a 2.6 cm lesion of the posterior lower pole but review of the cine loop suggests that this is artifactual rather than a true nodule. LEFT THYROID LOBE: 6.9 x 3.1 x 3.5 cm, volume 30 cc. * 1.1 x 0.7 x 1.1 cm poorly marginated solid wide nearly isoechoic lesion without echogenic foci (TR 3) ISTHMUS: Thickness: 1.4 cm. IMPRESSION: Diffusely enlarged thyroid. 1.9 cm TR 3 lesion of the right lobe. Recommend follow-up ultrasound in one year per TiRADS criteria (reference below). TI-RADS 2017 reference: Tiffanysler FN, Wood WD, Shakir EG, et al. ACR Thyroid Imaging, Reporting and Data System (TI-RADS): White Paper of the ACR TI-RADS Committee. J Am Charmaine Radiol. Volume 14, Issue 5 , 587 595. https://doi.org/10.1016/j.jacr.2017.01.046 ACR TI-RADS recommendations: TR3 (3 points): FNA if ? 2.5 cm, follow-up if 1.5-2.4 cm in 1, 3 and 5 years. TI-RADS calculator: http://tiradscalculator.com/ WSN: [id number] Ordering Physician: Onelia Daugherty Dictated By: Saman Dumont MD Knee RT WO Reviewed date:04/07/2024 11:43:02 AM Interpretation: Performing Lab: Notes/Report: Hemoglobin [id number] Reviewed date:02/23/2024 08:32:31 AM Interpretation: Performing Lab:[facility], [address] [place] [address], Phone - [phone], Director - Kevin Notes/Report: Hemoglobin A1c 6.6 4.8-5.6 % . Prediabetes: 5.7 - 6.4 Diabetes: >6.4 Glycemic control for adults with diabetes: <7.0 B-Type Natriuretic Peptide-1 95039 Reviewed date:02/23/2024 08:32:31 AM Interpretation: Performing Lab:[facility], [address] [place] [address], Phone - [phone], Director - Kevin Notes/Report: B-Type Natriuretic Peptide 4.1 0.0-100.0 pg/m L Siemens ADVIA Centaur XP methodology Comp. Metabolic Panel (14)-3 51842 Reviewed date:02/23/2024 08:32:31 AM Interpretation: Performing Lab:[facility], [address] [place] [address], Phone - [phone], Director - Kevin Notes/Report: Glucose 98 70-99 mg/dL BUN 16 6-24 mg/dL Creatinine 0.78 0.57-1.00 mg/dL eGFR 91 >59 mL/min/1.73 BUN/Creatinine Ratio 21 9-23 Sodium 141 134-144 mmol/L Potassium 4.7 3.5-5.2 mmol/L Chloride 102 96-106 mmol/L Carbon Dioxide, Total 22 20-29 mmol/L Calcium 10.1 8.7-10.2 mg/dL Protein, Total 7.7 6.0-8.5 g/dL Albumin 4.6 3.8-4.9 g/dL Globulin, Total 3.1 1.5-4.5 g/dL Bilirubin, Total 0.5 0.0-1.2 mg/dL Alkaline Phosphatase 113 44-121 IU/L AST (SGOT) 15 0-40 IU/L ALT (SGPT) 22 0-32 IU/L LP+Non-HDL Cholesterol-04858 5 Reviewed date:02/23/2024 08:32:31 AM Interpretation: Performing Lab:[facility], [address] [place] [address], Phone - [phone], Director - Kevin Notes/Report: Cholesterol, Total 234 100-199 mg/dL Triglycerides 182 0-149 mg/dL HDL Cholesterol 53 >39 mg/dL VLDL Cholesterol Pedro Pablo 33 5-40 mg/dL LDL Chol Calc (NIH) 148 0-99 mg/dL Non-HDL Cholesterol 181 0-129 mg/dL CR Knee RT 3 View Reviewed date:03/04/2024 03:23:31 PM Interpretation: Performing Lab: Notes/Report: Hemoglobin [id number] Reviewed date:08/17/2024 02:52:01 PM Interpretation: Performing Lab:[facility], [address] [place] [address], Phone - [phone], Director - MDGiseledry Notes/Report: Hemoglobin A1c 6.0 4.8-5.6 % . Prediabetes: 5.7 - 6.4 Diabetes: >6.4 Glycemic control for adults with diabetes: <7.0 Vitamin [id number] Reviewed date:08/17/2024 02:52:01 PM Interpretation: Performing Lab:[facility], [address] [place] [address], Phone - [phone], Director - Kevin Notes/Report: Vitamin B12 004 159-1808 pg/mL Urinalysis, Complete-614246 Reviewed date:08/17/2024 02:52:01 PM Interpretation: Performing Lab:[facility], Phone - [phone], Director - Kevin Notes/Report: Specific [place] >=1.030 1.005-1.030 pH 5.5 5.0-7.5 Urine-Color Yellow Yellow Appearance Clear Clear WBC Esterase Negative Negative Protein Negative Negative/Trace Glucose 3+ Negative Ketones Negative Negative Occult Blood Negative Negative Bilirubin Negative Negative Urobilinogen,Semi-Qn 0.2 0.2-1.0 mg/dL Nitrite, Urine Negative Negative Microscopic Examination Micr oscopic follows if indicated. Microscopic Examination See below: Micr oscopic was indicated and was performed. WBC 0-5 0 - 5 /hpf RBC None seen 0 - 2 /hpf Epithelial Cells (non renal) 0-10 0 - 10 /hpf Casts None seen None seen /lpf Bacteria Moderate None seen/Few Testosterone-[id number] Reviewed date:08/17/2024 02:52:01 PM Interpretation: Performing Lab:[facility] [address] [place] [address], Phone - [phone], Director Ayla Brown Notes/Report: Testosterone 4 4-50 ng/dL Luteinizing Hormone(LH)-0042 83 Reviewed date:08/17/2024 02:52:01 PM Interpretation: Performing Lab:[facility] [address] [place] [address], Phone - [phone], Director Ayla Brown Notes/Report: LH 16.5 Adult Female Range Follicular phase 2.4 - 12.6 Ovulation phase 14.0 - 95.6 Luteal phase 1.0 - 11.4 Postmenopausal 7.7 - 58.5 FSH-[id number] Reviewed date:08/17/2024 02:52:01 PM Interpretation: Performing Lab:[facility] [address] [place] [address], Phone - [phone], Director Ayla Brown Notes/Report: FSH 8.7 Adult Female Range Follicular phase 3.5 - 12.5 Ovulation phase 4.7 - 21.5 Luteal phase 1.7 - 7.7 Postmenopausal 25.8 - 134.8 Progesterone-975698 Reviewed date:08/17/2024 02:52:01 PM Interpretation: Performing Lab:[facility] [address] [place] [address], Phone - [phone], Director - MDJodry Notes/Report: Progesterone 0.4 Follicular phase 0.1 - 0.9 Luteal phase 1.8 - 23.9 Ovulation phase 0.1 - 12.0 First trimester 11.0 - 44.3 Second trimester 25.4 - 83.3 Third trimester 58.7 - 214.0 Postmenopausal 0.0 - 0.1 Estrogens, Total-253671 Reviewed date:08/17/2024 02:52:01 PM Interpretation: Performing Lab:[facility], [address] [facility], [place], Phone - [phone], Director - MDAngeliney Notes/Report: Estrogens, Total 348 Prepubertal < 40 Female Cycle: 1-10 Days 16 - 328 11-20 Days 34 - 501 21-30 Days 48 - 350 Post-Menopausal 40 - 244 CBC With Differential/Platel et-[id number] Reviewed date:08/17/2024 02:52:01 PM Interpretation: Performing Lab:[facility], [address] [facility], [place], Phone - [phone], Director - Kevin Notes/Report: WBC 10.8 3.4-10.8 x10E3/uL RBC 5.12 3.77-5.28 x10E6/uL Hemoglobin 14.8 11.1-15.9 g/dL Hematocrit 43.9 34.0-46.6 % MCV 86 79-97 fL MCH 28.9 26.6-33.0 pg MCHC 33.7 31.5-35.7 g/dL RDW 13.0 11.7-15.4 % Platelets 304 150-450 x10E3/uL Neutrophils 65 Not Estab. % Lymphs 25 Not Estab. % Monocytes 7 Not Estab. % Eos 2 Not Estab. % Basos 0 Not Estab. % Neutrophils (Absolute) 7.2 1.4-7.0 x10E3/uL Lymphs (Absolute) 2.7 0.7-3.1 x10E3/uL Monocytes(Absolute) 0.7 0.1-0.9 x10E3/uL Eos (Absolute) 0.2 0.0-0.4 x10E3/uL Baso (Absolute) 0.0 0.0-0.2 x10E3/uL Immature Granulocytes 1 Not Estab. % Immature Grans (Abs) 0.1 0.0-0.1 x10E3/uL Vitamin D, 49-[id number] Reviewed date:08/17/2024 02:52:02 PM Interpretation: Performing Lab:[facility], Phone - [phone], Director - Kevin Notes/Report: Vitamin D, 25-Hydroxy 32.9 30.0-100.0 ng/mL Vitamin D deficiency has been defined by the [place] of [employer] and an Endocrine Society practice guideline as a level of serum 25-OH vitamin D less than 20 ng/mL (1,2). The Endocrine Society went on to further define vitamin D insufficiency as a level between 21 and 29 ng/mL (2). 1. IOM ([place] of [employer]). 2010. Dietary reference intakes for calcium and D. [place]: The National Academies Press. 2. Latasha MF, Digna MARSHALL, Nasim JULIO, et al. Evaluation, treatment, and prevention of vitamin D deficiency: an Endocrine Society clinical practice guideline. JCEM. 2010; 96(7):1911-30. Albumin/Creatinine Ratio,Uri ne-[id number] Reviewed date:08/17/2024 02:52:02 PM Interpretation: Performing Lab:[facility] [place], [address] [place] [address], Phone - [phone], - Kevin Notes/Report: Creatinine, Urine 109.5 Not Estab. mg/dL Albumin, Urine 8.1 Not Estab. ug/mL Alb/Creat Ratio 7 0-29 mg/g creat Normal: 0 - 29 Moderately increased: 30 - 300 Severely increased: >300 B-Type Natriuretic Peptide-1 24533 Reviewed date:08/17/2024 02:52:02 PM Interpretation: Performing Lab:[facility] [place], [address] [place] [address], Phone - [phone], - Kevin Notes/Report: B-Type Natriuretic Peptide 16.0 0.0-100.0 pg/m L Siemens ADVIA Centaur XP methodology HCV Antibody RFX to Quant PC [id number] Reviewed date:08/17/2024 02:52:02 PM Interpretation: Performing Lab:[facility], Phone - [phone], Director Ayla Brown Notes/Report: HCV Ab Non Reactive Non Reactive Interpretation: Not infected with HCV unless early or acute infection is suspected (which may be delayed in an immunocompromised individual), or other evidence exists to indicate HCV infection. Comp. Metabolic Panel (14)-3 32471 Reviewed date:08/17/2024 02:52:02 PM Interpretation: Performing Lab:[facility], [address] [facility], Phone - [phone], Director - Kevin Notes/Report: Glucose 102 70-99 mg/dL BUN 10 6-24 mg/dL Creatinine 0.73 0.57-1.00 mg/dL eGFR 99 >59 mL/min/1.73 BUN/Creatinine Ratio 14 9-23 Sodium 141 134-144 mmol/L Potassium 4.2 3.5-5.2 mmol/L Chloride 103 96-106 mmol/L Carbon Dioxide, Total 22 20-29 mmol/L Calcium 9.6 8.7-10.2 mg/dL Protein, Total 7.0 6.0-8.5 g/dL Albumin 4.7 3.8-4.9 g/dL Globulin, Total 2.3 1.5-4.5 g/dL Bilirubin, Total 0.6 0.0-1.2 mg/dL Alkaline Phosphatase 108 44-121 IU/L AST (SGOT) 16 0-40 IU/L ALT (SGPT) 20 0-32 IU/L LP+Non-HDL Cholesterol-64395 5 Reviewed date:08/17/2024 02:52:02 PM Interpretation: Performing Lab:[facility], [address] [place] [address], Phone - [phone], Director - Kevin Notes/Report: Cholesterol, Total 152 100-199 mg/dL Triglycerides 163 0-149 mg/dL HDL Cholesterol 54 >39 mg/dL VLDL Cholesterol Pedro Pablo 28 5-40 mg/dL LDL Chol Calc (NIH) 70 0-99 mg/dL Non-HDL Cholesterol 98 0-129 mg/dL TSH reflex to [id number] Reviewed date:08/17/2024 02:52:02 PM Interpretation: Performing Lab:[facility], [address] [facility], [place], Phone - [phone], Director - Kevin Notes/Report: TSH 1.120 0.450-4.500 uIU/mL MRI Joint Ext Lower W/O Cont rast Right Reviewed date:03/24/2024 05:24:55 PM Interpretation: Performing Lab: Notes/Report: History: Right knee pain. Technique: MRI of the right knee was performed without intravenous contrast. Comparison:Radiographs 02/20/2024 Findings: Joint effusion: Trace joint effusion. Tiny Baer's cyst. Menisci: Near full-thickness radial tear at the posterior horn root junction of the medial meniscus with associated extrusion into the medial gutter. The posterior root appears degenerated. Lateral meniscus appears intact. Tendons and ligaments: The ACL and PCL are intact. The collateral ligaments are unremarkable. The iliotibial band is unremarkable. The extensor mechanism is intact. Bone and articular cartilage: Small subchondral insufficiency fracture central weightbearing medial tibial plateau. Focal full-thickness chondral loss involving the central weightbearing medial femoral condyle measuring 5 mm x 4 mm series 7 image 12. Evidence of red marrow reconversion. Lateral tibiofemoral cartilage appears intact. Moderate chondral thinning of the patellar cartilage. Impression: 1. Near full-thickness radial tear posterior horn root junction of the medial meniscus. The posterior root appears degenerated. 2. Small subchondral insufficiency fracture medial tibial plateau with associated bony edema. 3. Small full-thickness chondral defect central weightbearing medial femoral condyle. 4. Moderate chondral thinning of the patellar cartilage. 5. Tiny Baer cyst. WSN: [id number] Ordering Physician: Onelia Daugherty Dictated By: Edmund JIMENEZ, Jose Bravo CBC With Differential/Platel et-[id number] Reviewed date:08/17/2024 02:52:02 PM Interpretation: Performing Lab:[facility] [place], [address] [place] [address] Avenue, [place], Phone - [phone], Director - Kevni Notes/Report: WBC 13.1 3.4-10.8 x10E3/uL RBC 5.56 3.77-5.28 x10E6/uL Hemoglobin 15.7 11.1-15.9 g/dL Hematocrit 49.1 34.0-46.6 % MCV 88 79-97 fL MCH 28.2 26.6-33.0 pg MCHC 32.0 31.5-35.7 g/dL RDW 13.6 11.7-15.4 % Platelets 267 150-450 x10E3/uL Neutrophils 79 Not Estab. % Lymphs 15 Not Estab. % Monocytes 4 Not Estab. % Eos 1 Not Estab. % Basos 0 Not Estab. % Neutrophils (Absolute) 10.2 1.4-7.0 x10E3/uL Lymphs (Absolute) 2.0 0.7-3.1 x10E3/uL Monocytes(Absolute) 0.5 0.1-0.9 x10E3/uL Eos (Absolute) 0.2 0.0-0.4 x10E3/uL Baso (Absolute) 0.0 0.0-0.2 x10E3/uL Immature Granulocytes 1 Not Estab. % Immature Grans (Abs) 0.2 0.0-0.1 x10E3/uL (An elevated percentage of Immature Granulocytes has not been found to be clinically significant as a sole clinical predictor of disease. Does NOT include bands or blast cells. associated physiological leukocytosis may also show increased immature granulocytes without clinical significance.) B-Type Natriuretic Peptide-1 11797 Reviewed date:08/17/2024 02:52:02 PM Interpretation: Performing Lab:[facility], [address] [place] [address], Phone - [phone], Director - MDJodry Notes/Report: B-Type Natriuretic Peptide 16.6 0.0-100.0 pg/m L Siemens ADVIA Centaur XP methodology Comp. Metabolic Panel (14)-3 89884 Reviewed date:08/17/2024 02:52:02 PM Interpretation: Performing Lab:[facility], [address] [place] [address], Phone - [phone], Director - MDJodry Notes/Report: Glucose 146 70-99 mg/dL BUN 13 6-24 mg/dL Creatinine 0.86 0.57-1.00 mg/dL eGFR 81 >59 mL/min/1.73 BUN/Creatinine Ratio 15 9-23 Sodium 142 134-144 mmol/L Potassium 5.0 3.5-5.2 mmol/L Chloride 103 96-106 mmol/L Carbon Dioxide, Total 21 20-29 mmol/L Calcium 10.0 8.7-10.2 mg/dL Protein, Total 7.2 6.0-8.5 g/dL Albumin 4.7 3.8-4.9 g/dL Globulin, Total 2.5 1.5-4.5 g/dL Bilirubin, Total 0.5 0.0-1.2 mg/dL Alkaline Phosphatase 115 44-121 IU/L AST (SGOT) 12 0-40 IU/L ALT (SGPT) 14 0-32 IU/L US Soft Tissue Reviewed date:08/17/2024 02:52:02 PM Interpretation: Performing Lab: Notes/Report: US Soft Tissue Head/Neck Indication: NONTOXIC DIFFUSE GOITER; Clinical Question(s): Other: COMPARISON: 11/07/2023 FINDINGS: RIGHT THYROID LOBE: 7.7 x 3.2 x 3.4 cm, volume 44.1 cc. Nodule findings detailed below. Surrounding thyroid demonstrates heterogeneous echotexture. Normal parenchymal vascularity. Nodule #1: Mid-gland, 2 x 1 x 1.5 cm, solid, isoechoic, not rjsnks-mbyu-jrzj, ill-defined margin, no echogenic foci. TI-RADS Category 3. This nodule previously measured 1.9 x 1.3 x 1 cm. LEFT THYROID LOBE: 7.1 x 2.9 x 3.1 cm, volume 33.0 cc. Normal homogeneous echotexture. Normal parenchymal vascularity. Nodule #1: Mid-gland, 1.1 x 0.9 x 1.2 cm, solid, isoechoic, not memkow-qenk-nsii, ill-defined margin, no echogenic foci. TI-RADS Category 3. This nodule previously measured 1.1 x 0.7 x 1.1 cm and is stable. ISTHMUS: Thickness: 1.1 cm. IMPRESSION: Diffusely enlarged thyroid. TiRADS Category 3 nodule on the right is stable from prior study. Recommend follow-up ultrasound in 3 years. TI-RADS 2017 reference: Jenniferler FN, Wood WD, Shakir EG, et al. ACR Thyroid Imaging, Reporting and Data System (TI-RADS): White Paper of the ACR TI-RADS Committee. J Am Charmaine Radiol. Volume 14, Issue 5 , 587 - 595. https://doi.org/10.1016/j.jacr.2017.01.046 ACR TI-RADS recommendations: TR1 and TR2: No FNA or follow-up. TR3: FNA if greater than 2.4 cm, follow-up if 1.5-2.4 cm in 1, 3 and 5 years. TR4: FNA if greater than 1.4 cm, follow-up if 1.0-1.4 cm in 1, 2, 3 and 5 years. TR5: FNA if greater than 0.9 cm, follow-up if 0.5-0.9 cm every year for 5 years. TI-RADS calculator: http://tiradscalculator.com/ I have personally reviewed the images and I agree with this report. WSN: [id number] Ordering Physician: Frank Murillo Dictated By: Won Barnett MD MM Digital Mammo Screening Reviewed date:09/23/2024 10:06:59 PM Interpretation: Performing Lab: Notes/Report: PROCEDURE: MM Digital Mammo Screening CLINICAL INDICATION: 53 years old Female for screening. COMPARISON: Digital mammograms of 2012 through 2022. TECHNIQUE: Full field digital CC and MLO 3D tomosynthesis images of both breasts were acquired. Computer -aided detection (CAD) was utilized in the interpretation of this study. A cleavage view is required for complete imaging. Two RIGHT MLO views are required for complete evaluation. DENSITY: The breasts are heterogeneously dense, which may obscure small masses. FINDINGS: Normal bilateral axillary lymph nodes noted. A group of small round calcifications located posterolaterally in the LEFT breast is unchanged as 2020 and considered benign. Small numbers of scattered, benign appearing microcalcifications are noted elsewhere bilaterally. No masses, suspicious groups of microcalcifications, areas of architectural distortion, skin thickening or nipple retraction are seen in either breast. IMPRESSION: 1. No mammographic evidence of malignancy. RECOMMENDATION: Annual mammographic screening BI-RADS 2 - Benign. Lay letter mailed to patient. 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) Diagnosis 2 Nontoxic single thyr oid nodule (E04.1) Diagnosis 3 Body mass index [BMI ] 45.0-49.9, adult (Z68.42) Referral Organization [facility] Referring Provider First Name Onelia Referring Provider Last Name Dat Referring Provider Speciality Nurse Prac titioner Referred Provider Specialty Endocrinolog y General Notes Missy BELL 11/28 02:39:39 PM >faxed with referral form Referral Priority Routine Reason meniscal tear, stres s fracture, edema, and cartilage involvement [facility] faxed Diagnosis 1 Pain in right knee ( M25.561) Referral Organization [facility] Referring Provider First Name Onelia Referring Provider Last Name Dat Referring Provider Speciality Nurse Justin geronimo Referred Provider Specialty Orthopedic S urgery General Notes Trang BELLelle 03/01 04:33:40 PM >faxed with [facility] referral, DI's attached Referral Priority Urgent Reason Referral to advanced orthopedics needed for right medial meniscal tear Diagnosis 1 Complex tear of medi al meniscus, current injury, right knee, initial encounter (S83.231A) Referral Organization [facility] Referring Provider First Name Onelia Referring Provider Last Name Dat Referring Provider Speciality Nurse Justin geronimo Referred Provider Specialty Orthopedic S urgery General Notes [facility]/2023 11:36:53 AM > pt has appointment pending, Addressed To : Dat Rousseau, Good morning, , Just want to let you know that I have an appointment scheduled at [facility] on April 11., Thank you,, Alejandra Referral Priority Routine Referral Appointment Date 04/02/2024 Reason Continued pain with meniscal tear and ligament injury and no relief from cortisone injection 3 weeks ago [facility] Diagnosis 1 Complex tear of medi al meniscus, current injury, right knee, initial encounter (S83.231A) Referral Organization [facility] Referring Provider First Name Onelia Referring Provider Last Name Dat Referring Provider Speciality Nurse Justin geronimo Referred Provider Jerald Figueredo Referred Provider Specialty Orthopedic S urgery General Notes TANAMissy 03/31 11:52:40 AM >Faxed to [facility] with Referral form Referral Priority Routine Referral Appointment Date 05/09/2024 Reason Patient requesting r eferral to [facility] to discuss injectable medication for underlying BMI and hx of CHF and well as thyroid goiter and previous nodules faxed Diagnosis [address] (E04.0) Referral Organization [facility] Referring Provider First Name Onelia Referring Provider Last Name Dat Referring Provider Speciality Nurse Justin geronimo [facility] Specialty Endocrinolog y General Notes Missy BELL 06/29 01:24:47 PM >faxed Referral Priority Routine Referral Appointment Date 10/07/2024 Reason Any provider for [facility] skin check request made by patient faxed Diagnosis 1 Melanocytic nevi, un specified (D22.9) Referral Organization [facility] Referring Provider First Name Onelia Referring Provider Last Name Dat Referring Provider Speciality Nurse Justin geronimo Referred Provider Mo Tian Referred Provider Specialty Dermatology General Notes Missy BELL 06/29 12:59:37 PM >faxed Referral Priority Routine Medications Medication SIG (Take, Route, Frequency, Duration) Notes Start Date End Date Status Farxiga 10 MG 1 tablet Orally Once a day; Duration: 30 days Active Spironolactone 25 MG 1 tablet Orally Onc e a day; Duration: 30 days Active Carvedilol 12.5 MG TAKE 1 TABLET BY SAUL TH TWICE DAILY WITH FOOD; Duration: 30 Active Pantoprazole Sodium 40 MG TAKE 1 TABLET BY MOUTH DAILY Oral; Duration: 90 Days Active Vitamin D3 50 MCG (1999 UT) TAKE 2 TABLE TS BY MOUTH ONCE A DAY; Duration: 30 Active Ibuprofen 600 MG 1 tablet with food o r milk as needed Orally Three times a day Active Rosuvastatin Calcium 40 MG TAKE 1 TABLET BY MOUTH DAILY; Duration: 90 Active Entresto 24-26 MG TAKE 1 TABLET BY SAUL TH TWICE DAILY; Duration: 30 Active Spironolactone 25 MG TAKE 1 TABLET BY MO UTH DAILY; Duration: 30 Active Farxiga 10 MG TAKE 1 TABLET BY SAUL TH DAILY; Duration: 30 Active Immunizations Vaccine Route Administration Date Status Comme nts [id number] Vaccine Unknown 05/12/2020 Administere d [id number] Vaccine Unknown 06/09/2020 Administere d [id number]-86-[id number] Vaccine Unknown 08/16/2021 Administere d [id number] Afluria-Single Unknown 02/24/2022 Adm inistered Influenza-Afluria (IIV4) Unknown 02/18/2021 Administere d Influenza-Afluria (IIV4) Unknown 02/21/2023 Administere d Td (adult), absorbed Unknown 03/12/2020 Administered Social History Alcohol Screen (Audit-C) Question Answer Notes Did you have a drink contain ing alcohol in the past year? Yes How often did you have a dri nk containing alcohol in the past year? Monthly or less (1 point) How many drinks did you have on a typical day when you were drinking in the past year? 1 or 2 drinks (0 point) How often did you have 6 or more drinks on one occasion in the past year? 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) Active confirmed Problem Hyperglycemia due to type 2 diabetes mellitus (146062166185510) Type 2 diabetes mellitus with hyperglycemia (E11.65) Active confirmed Problem Vitamin D deficiency (82182410) Vitamin D deficiency, unspecified (E55.9) Active confirmed Problem Morbid obesity (disorder) (329110062) Morbid (severe) obesity due to excess calories (E66.01) Active confirmed Problem Mixed hyperlipidemia (905771933) Mixed hyperlipidemia (E78.2) Active confirmed Problem Chronic kidney disease due to hypertension (742930763106584) Hypertensive chronic kidney disease with stage 1 through stage 4 chronic kidney disease, or unspecified chronic kidney disease (I12.9) Active confirmed Problem Dilated cardiomyopathy (334187659) Dilated cardiomyopathy (I42.0) Active confirmed Problem Chronic systolic heart failure (510368968) Chronic systolic (congestive) heart failure (I50.22) Active confirmed Problem Chronic diastolic heart failure (945907350) Chronic diastolic (congestive) heart failure (I50.32) Active confirmed Problem Chronic kidney disease stage 1 (860176620) Chronic kidney disease, stage 1 (N18.1) Active confirmed Problem Menopause (631477569) Menopausal and female climacteric states (N95.1) Active confirmed Problem Hereditary lymphedema (871845357) Hereditary lymphedema (Q82.0) Active confirmed Problem Oral phase dysphagia (641684393) Dysphagia, oral phase (R13.11) Active confirmed Problem Body mass index 40+ - severely obese (102233662) Body mass index [BMI] 45.0-49.9, adult (Z68.42) Active confirmed Vital Signs Heart Rate 77 /min 08/13/2024 Temperature 96.0 degrees Fahrenheit 08/13/2024 Oximetry 98 % 08/13/2024 Blood pressure diastolic 68 mm Hg 08/13/2024 Height 5 ft 7 in in 08/13/2024 Blood pressure systolic 122 mm Hg 08/13/2024 Weight 268 lbs 08/13/2024 BMI 41.97 kg/m2 08/13/2024 Encounters Encounter Location Date Provider Diagnosis Frank Murillo MD [address] [id number] 12/27/2023 Onelia Murillo MD [address] [id number] 02/20/2024 Onelia Harringtone Hypertensive chronic kidney disease with stage 1 through stage 4 chronic kidney disease, or unspecified chronic kidney disease I12.9 ; Pain in right knee M25.561 ; Chronic diastolic (congestive) heart failure I50.32 ; Body mass index [BMI] 45.0-49.9, adult Z68.42 ; Morbid (severe) obesity due to excess calories E66.01 ; Hereditary lymphedema Q82.0 ; Thyrotoxicosis with diffuse goiter without thyrotoxic crisis or storm E05.00 ; Nontoxic single thyroid nodule E04.1 ; Mixed hyperlipidemia E78.2 ; Type 2 diabetes mellitus with hyperglycemia E11.65 and Chronic kidney disease, stage 1 N18.1 Frank Murillo MD [address] [id number] 03/12/2024 Onelia Daugherty Hypertensive chronic kidney disease with stage 1 through stage 4 chronic kidney disease, or unspecified chronic kidney disease I12.9 ; Unspecified tear of unspecified meniscus, current injury, right knee, initial encounter S83.206A ; Chronic kidney disease, stage 1 N18.1 ; Hereditary lymphedema Q82.0 and Chronic systolic (congestive) heart failure I50.22 Frank Murillo MD [address] [id number] 03/19/2024 Onelia Daugherty Hypertensive chronic kidney disease with stage 1 through stage 4 chronic kidney disease, or unspecified chronic kidney disease I12.9 ; Unspecified tear of unspecified meniscus, current injury, right knee, initial encounter S83.206A ; Chronic kidney disease, stage 1 N18.1 ; Chronic systolic (congestive) heart failure I50.22 and Dilated cardiomyopathy I42.0 Frank Murillo MD [address] [id number] 03/31/2024 Onelia Daugherty Hypertensive chronic kidney disease with stage 1 through stage 4 chronic kidney disease, or unspecified chronic kidney disease I12.9 ; Chronic kidney disease, stage 1 N18.1 ; Chronic systolic (congestive) heart failure I50.22 ; Dilated cardiomyopathy I42.0 and Complex tear of medial meniscus, current injury, right knee, initial encounter S83.231A Frank Murillo MD [address] [id number] 04/07/2024 Onelia Daugherty Hypertensive chronic kidney disease with stage 1 through stage 4 chronic kidney disease, or unspecified chronic kidney disease I12.9 ; Chronic kidney disease, stage 1 N18.1 ; Chronic systolic (congestive) heart failure I50.22 ; Dilated cardiomyopathy I42.0 and Complex tear of medial meniscus, current injury, right knee, initial encounter S83.231A Frank Murillo MD [address] [id number] 04/17/2024 Onelia Daugherty Hypertensive chronic kidney disease with stage 1 through stage 4 chronic kidney disease, or unspecified chronic kidney disease I12.9 ; Chronic kidney disease, stage 1 N18.1 ; Chronic systolic (congestive) heart failure I50.22 ; Dilated cardiomyopathy I42.0 ; Complex tear of medial meniscus, current injury, right knee, initial encounter S83.231A ; Mixed hyperlipidemia E78.2 ; Type 2 diabetes mellitus with hyperglycemia E11.65 ; Nontoxic diffuse goiter E04.0 and Cramp and spasm R25.2 Frank Murillo MD [address] [id number] 05/01/2024 Onelia Daugherty Hypertensive chronic kidney disease with stage 1 through stage 4 chronic kidney disease, or unspecified chronic kidney disease I12.9 ; Chronic kidney disease, stage 1 N18.1 ; Chronic systolic (congestive) heart failure I50.22 ; Dilated cardiomyopathy I42.0 and Complex tear of medial meniscus, current injury, right knee, initial encounter S83.231A Frank Murillo MD [address] [id number] 06/04/2024 Onelia Daugherty Hypertensive chronic kidney disease with stage 1 through stage 4 chronic kidney disease, or unspecified chronic kidney disease I12.9 ; Chronic kidney disease, stage 1 N18.1 ; Chronic systolic (congestive) heart failure I50.22 ; Dilated cardiomyopathy I42.0 and Complex tear of medial meniscus, current injury, right knee, initial encounter S83.231A Frank Murillo MD [address] [id number] 07/21/2024 Onelia Daugherty Hypertensive chronic kidney disease with stage 1 through stage 4 chronic kidney disease, or unspecified chronic kidney disease I12.9 ; Chronic kidney disease, stage 1 N18.1 ; Chronic systolic (congestive) heart failure I50.22 ; Dilated cardiomyopathy I42.0 ; Complex tear of medial meniscus, current injury, right knee, initial encounter S83.231A ; Nontoxic diffuse goiter E04.0 and Melanocytic nevi, unspecified D22.9 Frank Murillo MD [address] [id number] 08/13/2024 Onelia Daugherty Encounter for genera l adult medical examination without abnormal findings Z00.00 ; Hypertensive chronic kidney disease with stage 1 through stage 4 chronic kidney disease, or unspecified chronic kidney disease I12.9 ; Chronic systolic (congestive) heart failure I50.22 ; Dilated cardiomyopathy I42.0 ; Chronic kidney disease, stage 1 N18.1 ; Complex tear of medial meniscus, current injury, right knee, initial encounter S83.231A ; Dysphagia, oral phase R13.11 ; Prediabetes R73.03 ; Nontoxic diffuse goiter E04.0 ; Hereditary lymphedema Q82.0 ; Menopausal and female climacteric states N95.1 ; Other fatigue R53.83 ; Vitamin D deficiency, unspecified E55.9 ; Encounter for screening for malignant neoplasm of colon Z12.11 ; Encounter for screening mammogram for malignant neoplasm of breast Z12.31 ; Encounter for screening for cardiovascular disorders Z13.6 ; Encounter for immunization Z23 ; Encounter for antibody response examination Z01.84 ; Encounter for screening for other viral diseases Z11.59 ; Encounter for screening for malignant neoplasm of cervix Z12.4 and Encounter for screening examination for mental health and behavioral disorders, unspecified Z13.30 Frank Murillo MD [address] [id number] 11/07/2023 Onelia Murillo MD [facility] [address] [facility] [address] [place] [address] [id number] 12/27/2023 Onelia Murillo MD PC [address] [facility] [address] [place] [address] [id number] 02/21/2024 Onelia Murillo MD PC [address] [facility] [address] [place] [address] [id number] 02/22/2024 Onelia Murillo MD PC [address] [facility] [address] [place] [address] [id number] 02/23/2024 Onelia Murillo MD PC [address] [facility] [address] [place] [address] [id number] 03/20/2024 Onelia Murillo MD PC [address] [facility] [address] [place] [address] [id number] 03/24/2024 Onelia Murillo MD PC [address] [place] [address] [id number] 03/31/2024 Onelia Murillo MD PC [address] [place] [address] [place] [address] [id number] 04/24/2024 Onelia Murillo MD PC [address] [place] [address] [place] [address] [id number] 05/16/2024 Onelia Murillo MD PC [address] [place] [address] [id number] 06/17/2024 Onelia Murillo MD PC [address] [place] [address] [id number] 08/17/2024 Onelia Murillo MD PC [address] [place] [address] [place] [address] [id number] 11/21/2023 Onelia Murillo MD PC [address] [place] [address] [id number] 12/04/2023 Onelia Daugherty Thyrotoxicosis with diffuse goiter without thyrotoxic crisis or storm E05.00 ; Nontoxic single thyroid nodule E04.1 and Body mass index [BMI] 45.0-49.9, adult Z68.42 Farnk Murillo MD PC [address] [place] [address] [place] [address] [id number] 03/10/2024 Onelia Murillo MD PC [address] [place] [address] [id number] 03/14/2024 Onelia Murillo MD PC [address] [place] [address] [id number] 03/17/2024 Onelia Murillo MD [address] [id number] 03/17/2024 Onelia Murillo MD [address] [id number] 03/17/2024 Onelia Murillo MD [address] [id number] 03/24/2024 Onelia Murillo MD [address] [id number] 03/25/2024 Onelia Murillo MD [address] [id number] 03/26/2024 Onelia Murillo MD [address] [id number] 04/01/2024 Onelia Murillo MD [address] [id number] 06/23/2024 Onelia Murillo MD [address] [id number] 07/11/2024 Onelia Brink Encounter Date Diagnosis (ICD Code) Assessment Notes Treatment Notes Treatment Clinical Notes Section Notes 04/17/2024 Hypertensive chronic kidney disease with stage 1 through stage 4 chronic kidney disease, or unspecified chronic kidney disease (ICD-10 - I12.9) Blood pressure continues to show improvement since patient has become more compliant with her medication regimen for Hypertension as well as heart failure. Patient to remain on Entresto, spironolactone, and carvedilol Plan will be for follow-up at the beginning of April to reassess blood pressure and ensure continued improvement with consistent use of her medications 04/17/2024 Chronic kidney disease, stage 1 (ICD-10 - N18.1) Stable on previous labs (level noted to be 75). Patient to remain on Farxiga for further kidney protection and control of comorbidities such as heart failure and hypertension 06/04/2024 Hypertensive chronic kidney disease with stage 1 through stage 4 chronic kidney disease, or unspecified chronic kidney disease (ICD-10 - I12.9) Blood pressure continues to improve and patient to continue with her current medication regimen. Plan will be for follow-up in 1 month to reassess blood pressure 07/21/2024 Hypertensive chronic kidney disease with stage 1 through stage 4 chronic kidney disease, or unspecified chronic kidney disease (ICD-10 - I12.9) Blood pressure continues to improve and patient to continue with her current medication regimen. Plan will be to reassess blood pressure upcoming annual to ensure continued improvement 07/21/2024 Chronic kidney disease, stage 1 (ICD-10 - N18.1) Stable on previous labs. Patient to remain on Farxiga for further kidney protection and control of comorbidities such as heart failure and hypertension 08/13/2024 Hypertensive chronic kidney disease with stage 1 through stage 4 chronic kidney disease, or unspecified chronic kidney disease (ICD-10 - I12.9) Blood pressure continues to improve and patient to continue with her current medication regimen. 08/13/2024 Encounter for general adult medical examination without abnormal findings (ICD-10 - Z00.00) General healthcare up-to-date. Will obtain updated routine labs.Plan be for annual in 1 year 05/01/2024 Hypertensive chronic kidney disease with stage 1 through stage 4 chronic kidney disease, or unspecified chronic kidney disease (ICD-10 - I12.9) Blood pressure continues to show improvement now the patient is more compliant with her medication regimen. Patient to remain on her current medication regimen daily and plan will be for follow-up in 1 month to reassess blood pressure 04/07/2024 Hypertensive chronic kidney disease with stage 1 through stage 4 chronic kidney disease, or unspecified chronic kidney disease (ICD-10 - I12.9) Blood pressure still remains elevated but improved since last visit. Patient to remain on Entresto, spironolactone, and carvedilol and be seen as scheduled in April 17 to further assess blood pressure now that patient has obtained and began consistent use of these medications 03/31/2024 Hypertensive chronic kidney disease with stage 1 through stage 4 chronic kidney disease, or unspecified chronic kidney disease (ICD-10 - I12.9) Blood pressure still remains elevated but improved since last visit. Patient to remain on Entresto as well as carvedilol and she did recently begin spironolactone. Patient does have a scheduled follow-up in 2 weeks to reassess blood pressure after being on these medications for a longer period of time 03/31/2024 Chronic kidney disease, stage 1 (ICD-10 - N18.1) Stable on previous labs (level noted to be 75). [facility] to [facility] up from the pharmacy today 03/19/2024 Hypertensive chronic kidney disease with stage 1 through stage 4 chronic kidney disease, or unspecified chronic kidney disease (ICD-10 - I12.9) Blood pressure elevated during today's visit. Patient to remain on Entresto as well as carvedilol and she is to pear picker and begin her spironolactone today for additional BP management. Patient to follow-up in 2 weeks to reassess blood pressure since starting spironolactone 03/12/2024 Hypertensive chronic kidney disease with stage 1 through stage 4 chronic kidney disease, or unspecified chronic kidney disease (ICD-10 - I12.9) Blood pressure elevated during today's visit. Patient states that she has been compliant with her Entresto and carvedilol. Due to her elevation in blood pressure today as well as underlying heart failure will begin spironolactone for proper management of chronic comorbidities including hypertension. Patient to follow-up next week as scheduled to reassess blood pressure since adding spironolactone 03/12/2024 Unspecified tear of unspecified meniscus, current injury, right knee, initial encounter (ICD-10 - S83.206A) Patient presents today in office for worsening right knee pain. Patient does have findings of right sided leg weakness compared to left, decreased range of motion due to pain in right knee, decreased patellar tendon reflex compared to right, and swelling present to anterior right knee. Patient has tried Aleve without any significant improvement in her symptoms. Patient also completed a course of physical therapy due to lymphedema and she has been trying to participate in home physical therapy exercises but due to pain is unable to continue these exercises. Patient recently completed a right knee x-ray without significant findings to explain her pain. Given patient's worsening pain and now decreased weakness and decreased tendon reflexes, patient would benefit from an MRI to further evaluate for meniscal tear despite lack of injury or trauma to her right knee 02/20/2024 Hypertensive chronic kidney disease with stage 1 through stage 4 chronic kidney disease, or unspecified chronic kidney disease (ICD-10 - I12.9) Blood pressure with some improvement but still a bit elevated. Pt admits to not being compliant on medications as she should. Plan will be for patient to remain on current Entresto and Carvedilol dose to assist in better management of her HTN. Plan will be for follow-up in 1 month to reassess blood pressure and pt to begin being more compliant 02/20/2024 Pain in right knee (ICD-10 - M25.561) It is unclear what is the underlying cause for patient's right knee pain. There was findings of swelling behind right knee on exam today and would like patient to complete a right knee x-ray to assess for a Baer's cyst. Patient is finding relief with Aleve use which makes me consider musculoskeletal and inflammation as the underlying cause for her symptoms. Patient agreeable to complete an x-ray and if there are no significant findings patient may benefit from further imaging. She is scheduled for follow-up in 4 weeks and will reassess and determine next steps. Patient also continue using her leg wraps and consider compression sleeve to wear on her right leg near her right knee to assist with symptom management 12/04/2023 Nontoxic single thyroid nodule (ICD-10 - E04.1) 12/04/2023 Thyrotoxicosis with diffuse goiter without thyrotoxic crisis or storm (ICD-10 - E05.00) 12/04/2023 Body mass index [BMI] 45.0-49.9, adult (ICD-10 - Z68.42) 02/20/2024 Chronic diastolic (congestive) heart failure (ICD-10 - I50.32) Previous Echo results suggest underlying Diastolic Heart Failure and an EF of 40%-45%. Pt to continue taking Carvedilol as well as Entresto to assist with management of her underlying CHF and symptoms. Patient was prescribed Wegovybut her insurance carrier denied this. Pt with underlying heart failure as well as morbid obesity and elevated A1c and pt would benefit from a Semaglutide to assist with lowering her BMI and CHF management 03/12/2024 Chronic kidney disease, stage 1 (ICD-10 - N18.1) Stable on previous labs (level noted to be 75) 03/19/2024 Chronic kidney disease, stage 1 (ICD-10 - N18.1) Stable on previous labs (level noted to be 75) 03/19/2024 Unspecified tear of unspecified meniscus, current injury, right knee, initial encounter (ICD-10 - S83.206A) Patient with continued right knee pain since last visit and is pending an MRI but does not have a date scheduled at this time. Patient to continue using Aleve to further assist in pain management. Patient also continue wrapping her leg to assist with lymphedema as well as wearing a brace to her right knee for additional support while we wait for further imaging to assess for underlying meniscal tear 03/31/2024 Chronic systolic (congestive) heart failure (ICD-10 - I50.22) Previous Echo results suggest underlying Systolic Heart Failure with an EF of 40%-45%. Pt to continue taking Carvedilol as well as Entresto to assist with management of her underlying CHF and symptoms. Patient was prescribed Wegovy and her insurance carrier continues to review through a PA. She was also prescribed Farxiga, which she will pear picker from the pharmacy and begin today 05/01/2024 Chronic kidney disease, stage 1 (ICD-10 - N18.1) Stable on previous labs. Patient to remain on Farxiga for further kidney protection and control of comorbidities such as heart failure and hypertension 04/07/2024 Chronic kidney disease, stage 1 (ICD-10 - N18.1) Stable on previous labs (level noted to be 75). Patient to remain on Farxiga as well 08/13/2024 Chronic systolic (congestive) heart failure (ICD-10 - I50.22) Previous Echo results suggest underlying Systolic Heart Failure with an EF of 40%-45%. Pt to continue taking Carvedilol as well as Entresto to assist with management of her underlying CHF and symptoms. Patient was previously prescribed Wegovy given her underlying heart failure diagnosis but patient's [facility] insurance denied this. Patient is now pending an endocrinology appointment with [facility] to determine if patient can obtain Wegovy due to underlying heart failure diagnosis and elevated BMI 07/21/2024 Chronic systolic (congestive) heart failure (ICD-10 - I50.22) Previous Echo results suggest underlying Systolic Heart Failure with an EF of 40%-45%. Pt to continue taking Carvedilol as well as Entresto to assist with management of her underlying CHF and symptoms. Patient was previously prescribed Wegovy given her underlying heart failure diagnosis but patient's health [employer] insurance denied this. Patient is requesting a referral to endocrinology per [facility]'s request to see if she would benefit from beginning this injectable not only for underlying heart failure but also for her BMI. 06/04/2024 Chronic kidney disease, stage 1 (ICD-10 - N18.1) Stable on previous labs. Patient to remain on Farxiga for further kidney protection and control of comorbidities such as heart failure and hypertension 04/17/2024 Chronic systolic (congestive) heart failure (ICD-10 - I50.22) Previous Echo results suggest underlying Systolic Heart Failure with an EF of 40%-45%. Pt to continue taking Carvedilol as well as Entresto to assist with management of her underlying CHF and symptoms. Patient was prescribed Wegovy and her insurance carrier continues to review through a PA. 04/17/2024 Dilated cardiomyopathy (ICD-10 - I42.0) See plan above.Patient to remain on current medication regimen and the office will continue to work on the prior authorization for Wegovy as this will further support her chronic comorbidities or failure and to help lower her BMI 06/04/2024 Chronic systolic (congestive) heart failure (ICD-10 - I50.22) Previous Echo results suggest underlying Systolic Heart Failure with an EF of 40%-45%. Pt to continue taking Carvedilol as well as Entresto to assist with management of her underlying CHF and symptoms. Patient was prescribed Wegovy and her insurance carrier continues to review through a PA. 07/21/2024 Dilated cardiomyopathy (ICD-10 - I42.0) See plan above.Patient to remain on current medication regimen and discussed in length that patient would benefit from semaglutide therapy given underlying heart failure. Patient is requesting an updated referral to [facility] endocrinology to discuss beginning this medication has helped him but will not approve this without endocrinology evaluation 08/13/2024 Dilated cardiomyopathy (ICD-10 - I42.0) See plan above.Patient to remain on current medication regimen and discussed in length that patient would benefit from semaglutide therapy given underlying heart failure. Patient is pending an appointment with [facility] endocrinology to discuss beginning this medication as [facility] will not approve this as ordered through a primary care office 05/01/2024 Chronic systolic (congestive) heart failure (ICD-10 - I50.22) Previous Echo results suggest underlying Systolic Heart Failure with an EF of 40%-45%. Pt to continue taking Carvedilol as well as Entresto to assist with management of her underlying CHF and symptoms. Patient was prescribed Wegovy and her insurance carrier continues to review through a PA. 04/07/2024 Chronic systolic (congestive) heart failure (ICD-10 - I50.22) Previous Echo results suggest underlying Systolic Heart Failure with an EF of 40%-45%. Pt to continue taking Carvedilol as well as Entresto to assist with management of her underlying CHF and symptoms. Patient was prescribed Wegovy and her insurance carrier continues to review through a PA. 03/19/2024 Chronic systolic (congestive) heart failure (ICD-10 - I50.22) Previous Echo results suggest underlying Systolic Heart Failure with an EF of 40%-45%. Pt to continue taking Carvedilol as well as Entresto to assist with management of her underlying CHF and symptoms. Patient was prescribed Wegovy and her insurance carrier continues to review through a PA. She was also prescribed Farxiga but this is being processed through PA as well 03/31/2024 Dilated cardiomyopathy (ICD-10 - I42.0) See plan above.Patient to remain on current medication regimen and the office will continue to work on the prior authorization for Wegovy as this will further support her chronic comorbidities or failure and to help lower her BMI 03/12/2024 Hereditary lymphedema (ICD-10 - Q82.0) Pt continues to be followed by Lymph Edema specialist at [facility]. She recently stopped with PT and continues using her leg wraps and feels improvement in leg swelling due to lymphedema 02/20/2024 Body mass index [BMI] 45.0-49.9, adult (ICD-10 - Z68.42) Patient was previously evaluated by weight management facility through [facility] and she states she does not want to move forward with weight loss surgery. She was previously prescribed Wegovy but this was declined through her insurance carrier. Patient continues to have an elevated BMI and morbid obesity, underlying CHF, and an elevated A1c in the type II diabetic range. Patient would greatly benefit from beginning Wegovy to further assist with comorbidities. Will reorder Wegovy at this time. Patient aware that if this medication is approved then she should contact the office for nurse visit to learn proper administration of this weekly injection 02/20/2024 Morbid (severe) obesity due to excess calories (ICD-10 - E66.01) See plan above 03/12/2024 Chronic systolic (congestive) heart failure (ICD-10 - I50.22) Previous Echo results suggest underlying Systolic Heart Failure with an EF of 40%-45%. Pt to continue taking Carvedilol as well as Entresto to assist with management of her underlying CHF and symptoms. Patient was prescribed Wegovy and her insurance carrier continues to review through a PA. Will also begin Farxiga as well as spironolactone for additional management of comorbidities such as heart failure 03/31/2024 Complex tear of medial meniscus, current injury, right knee, initial encounter (ICD-10 - S83.231A) Patient was recently evaluated by [facility] due to right knee pain and MRI findings of a near full-thickness medial meniscal tear and tibial plateau fracture. Patient states she was advised to limit activity and rest and that no further intervention was warranted. Patient would like a second opinion as pain has worsened and she is now compensating on her left leg which is causing pain to her left knee. [facility] [place] and provided them with patient's information and they will contact patient to make an urgent visit. Referral also placed 03/19/2024 Dilated cardiomyopathy (ICD-10 - I42.0) See plan above.Patient to remain on current medication regimen and the office will continue to work on the prior authorization for Wegovy as well as Farxiga as both of these will further support her chronic comorbidities or failure and to help lower her BMI 04/07/2024 Dilated cardiomyopathy (ICD-10 - I42.0) See plan above.Patient to remain on current medication regimen and the office will continue to work on the prior authorization for Wegovy as this will further support her chronic comorbidities or failure and to help lower her BMI 05/01/2024 Dilated cardiomyopathy (ICD-10 - I42.0) See plan above.Patient to remain on current medication regimen and the office will continue to work on the prior authorization for Wegovy as this will further support her chronic comorbidities or failure and to help lower her BMI 08/13/2024 Chronic kidney disease, stage 1 (ICD-10 - N18.1) Stable on previous labs. Patient to remain on Farxiga for further kidney protection and control of comorbidities such as heart failure and hypertension 07/21/2024 Complex tear of medial meniscus, current injury, right knee, initial encounter (ICD-10 - S83.231A) Patient is status post right knee arthroscopy as well as repair of right meniscal tear. Patient states Dr. Merino has cleared her to return to work July 31. Her symptoms continue to improve and she is without significant findings on exam today. Patient aware that if symptoms of pain, swelling, or inability to ambulate return she is to follow-up with Dr. Merino 04/17/2024 Complex tear of medial meniscus, current injury, right knee, initial encounter (ICD-10 - S83.231A) Patient was recently evaluated by [facility] as well as [facility] due to right knee pain and MRI findings of a near full-thickness medial meniscal tear and tibial plateau fracture. Patient did receive a cortisone injection in the right kneebut she continues to have much pain on the medial aspect of her right knee. Due to persistent symptoms and feeling of hyperextension in her knee, will refer pt to Dr. Vernon for further evaluation of meniscal tear 06/04/2024 Dilated cardiomyopathy (ICD-10 - I42.0) See plan above.Patient to remain on current medication regimen and the office will continue to work on the prior authorization for Momo as this will further support her chronic comorbidities or failure and to help lower her BMI 04/17/2024 Mixed hyperlipidemia (ICD-10 - E78.2) Patient continues to take rosuvastatin without any negative side effects. Will obtain an updated lipid panel to ensure improvement in her LDL level since increasing her statin dose 06/04/2024 Complex tear of medial meniscus, current injury, right knee, initial encounter (ICD-10 - S83.231A) Patient continues to have persistent right knee pain, weakness, and difficulty ambulating. Recent MRI findings did reveal a near full-thickness medial meniscal tear and tibial plateau fracture. Patient was evaluated by Dr. Merino this morning she is planning to move forward with surgical intervention to repair damage to the right knee. Patient to remain out of work until surgical procedure is completed in the coming weeks (per pt surgery will be in the next 2-3 weeks), and note provided to patient to give to her short-term disability carrier. Patient will then have return to work status completed by Dr. 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 She continues to have a diffuse goiter and is requesting a referral to endocrinology. Patient is requesting possible referral placed to [facility] endocrinology per patient's request 08/13/2024 Complex tear of medial meniscus, current injury, right knee, initial encounter (ICD-10 - S83.231A) Patient is status post right knee arthroscopy as well as repair of right meniscal tear. Patient has returned back to work and she denies any pain, swelling, or instability in her right knee post surgical procedure 05/01/2024 Complex tear of medial meniscus, current injury, right knee, initial encounter (ICD-10 - S83.231A) Patient continues to have persistent right knee pain, weakness, and difficulty ambulating. Recent MRI findings did note near full-thickness medial meniscal tear and tibial plateau fracture. Patient has seen some improvement since her cortisone injection in the right knee but due to continued pain and weakness, patient is scheduled to see Dr. Merino June 04 to discuss surgical intervention. Patient to continue being cautious with ambulation, use compression sleeve for additional support and comfort and to follow-up sooner than her 1 month follow-up should her symptoms worsen or new symptoms begin 04/07/2024 Complex tear of medial meniscus, current injury, right knee, initial encounter (ICD-10 - S83.231A) Patient was recently evaluated by [facility] as well as [facility] due to right knee pain and MRI findings of a near full-thickness medial meniscal tear and tibial plateau fracture. Patient did receive a cortisone injection in the right knee on Sunday and she states some of her symptoms have improved slightly but she is now feeling as though she has much pain on the medial aspect of her right knee. Due to persistent symptoms and feeling of hyperextension in her knee, advised patient to follow-up with orthopedic provider and discuss if a brace could be ordered through the orthopedic office to ensure proper stability while we give the cortisone injection time to work 02/20/2024 Hereditary lymphedema (ICD-10 - Q82.0) Pt continues to be followed by Lymph Edema specialist at [facility]. She recently stopped with PT and continues using her leg wraps and feels improvement in leg swelling. 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 She did have a follow-up thyroid ultrasound which did not show growth in her thyroid nodules. Discussed with patient that a repeat ultrasound would be warranted given the size of her nodules and appearances. Discussed with patient that she may benefit from thyroid removal given the nodule sizes and patient agreeable to repeat imaging at the first of the year and she will follow-up with endocrine surgeon to discuss removal if nodules grow 08/13/2024 Dysphagia, oral phase (ICD-10 - R13.11) Patient previously evaluated by GI and underwent an Endoscopy. Patient states after undergoing her endoscopy and having her esophagus stretched her dysphagia and reflux have improved. Patient to continue taking her PPI as needed and to follow-up with any worsening reflux symptoms 07/21/2024 Melanocytic nevi, unspecified (ICD-10 - D22.9) Patient is requesting referral for a hr generalist to complete annual skin checks. No large concerns expressed by patient other than wanting a skin check and referral to [place] [facility] made at this time 04/17/2024 Type 2 diabetes mellitus with hyperglycemia (ICD-10 - E11.65) Patient's previous A1c noted to be 6.6. Would like patient to begin Wegovy for further management of not only her glucose levels, but to assist in lowering her BMI. 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 Would like to obtain an updated thyroid ultrasound to ensure there is no growth of the thyroid nodules given their TI RADS 4 status 08/13/2024 Prediabetes (ICD-10 - R73.03) Patient with previous prediabetic A1c level noted in lab work. Will obtain an updated A1c level for further evaluation 02/20/2024 Nontoxic single thyroid nodule (ICD-10 - E04.1) See plan above 02/20/2024 Mixed hyperlipidemia (ICD-10 - E78.2) Patient continues to take rosuvastatin without any negative side effects. 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 Patient previously requested referral to [facility] and referral was placed per patient's request 04/17/2024 Cramp and spasm (ICD-10 - R25.2) Patient does have intermittent lower extremiity cramping and encouraged patient to continue magnesium glycinate 400 mg daily to further assist in managing her intermittent episodes of cramping. Will also obtain a magnesium level to determine if patient has underlying concerns of low magnesium levels 08/13/2024 Hereditary lymphedema (ICD-10 - Q82.0) Pt continues to be followed by Lymph Edema specialist at [facility]. She previously completed a course of physical therapy at the lymphedema clinic and continues to use her compression wraps and leg wraps to overall improve her lymphedema and swelling symptoms 02/20/2024 Type 2 diabetes mellitus with hyperglycemia (ICD-10 - E11.65) Patient's previous A1c noted to be 6.6. Would like patient to begin Wegovy for further management of not only her glucose levels, but to assist in lowering her BMI. Will obtain an updated A1c level at this time 08/13/2024 Menopausal and female climacteric states (ICD-10 - N95.1) See plan above.Baseline hormone testing will be ordered at this time to further evaluate for underlying hormone deficiency as an underlying cause for patient's fatigue symptoms 08/13/2024 Other fatigue (ICD-10 - R53.83) Patient shares concerns of overall fatigue symptoms that are worsening. Discussed with patient that she did undergo a hysterectomy and would like to test balance for further evaluation of hormone deficiency as an underlying cause. Depending on lab results patient may benefit from a sleep study for further evaluation of sleep apnea as well. Patient agreeable to have lab work drawn and referred for sleep study if warranted after labs are reviewed 02/20/2024 Chronic kidney disease, stage 1 (ICD-10 - N18.1) Stable on previous labs (level noted to be 75) 08/13/2024 Vitamin D deficiency, unspecified (ICD-10 - E55.9) Will check level to verify that there is no deficiency 08/13/2024 Encounter for screening for malignant neoplasm of colon (ICD-10 - Z12.11) Patient completed her colonoscopy in 2023 through [facility] gastroenterology and she is up-to-date with colon cancer screenings at this time 08/13/2024 Encounter for screening mammogram for malignant neoplasm of breast (ICD-10 - Z12.31) Patient is due for an updated mammogram and order placed to [facility] location to ensure patient remains up-to-date with breast cancer screenings 08/13/2024 Encounter for screening for cardiovascular disorders (ICD-10 - Z13.6) Blood pressure stable. Will check for comorbidity of hyperlipidemia and hyperglycemia to further assess risk 08/13/2024 Encounter for immunization (ICD-10 - Z23) Vaccines up-to-date 08/13/2024 Encounter for antibody response examination (ICD-10 - Z01.84) Titers have been checked in the past and there is immunity to rubeola 08/13/2024 Encounter for screening for other viral diseases (ICD-10 - Z11.59) Will screen for hepatitis C as per general recommendation 08/13/2024 Encounter for screening for malignant neoplasm of cervix (ICD-10 - Z12.4) Patient states she is due for a Pap smear but discussed with patient that she had a total hysterectomy nearly 2 years ago and advised patient to contact Dr. Lynch's office to determine if patient requires Pap smears as her cervix may have been removed during the surgery. Patient to contact [facility] [employer] and schedule a Pap smear if warranted to ensure she is up-to-date with cervical cancer screenings 08/13/2024 Encounter for screening examination for mental health and behavioral disorders, unspecified (ICD-10 - Z13.30) PHQ score reviewed no further interventions warranted at this time 03/12/2024 Other 08/13/2024 Other Plan Of Treatment Pending Test Test Name Order Date Colonoscopy 06/26/2022 MAMMOGRAM, SCREENING 08/13/2024 US Guided Fine Needle Aspiration 023 Next Appt Details Provider Name:Onelia Daugherty , 11/26/2024 11:30:00 AM, [address] [place] [address], [address] [place] [address], [phone], Provider Name:Onelia Daugherty , 08/26/2025 10:30:00 AM, [address] [place] [address], [address], [place], [place], [phone], Insurance Providers Payer Name Payer Address Payer Phone Subscriber Number Group Number Insured Name Patient Relationship to Insured Coverage Start Date Coverage End Date [facility] [address] [place] [phone] [id number] Alejandra Thomas Self - patient is the insured Medical (General) History Medical History History ICD Code Lymph Edema (Primary) Grave's Disease (was diagnosed during pr egnancy) 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
--- OUTSIDE RECORDS SUMMARY | 2024-11-04 08:36 | XMS_ITS | Data Portability ---
Author Organization [facility], Main Office Address [address] [facility] [address] [place] [address] Care Team Providers Care Stripe Matcher Name Role Phone JUVENALLEVI RENEE Primary Care Provider AUSTIN GOULD OTHER MALIA DEAN OTHER MATIAS MONET OTHER HANS RUEDA OTHER [phone] Assessment No assessment recorded. Plan of Treatment [...] rapid strep group A, throat 2013 014 [email or web address] In-Office Order, Internal Use Only DO Not Attach Compendium DO Not Attach Compendium, Do Not Delete/merge, [id number] 4 12:34:37 Referral nutrition ist/dieti maribel referral 2014 015 broderick Not available 5 08:02:04 medical weight loss program referral - For assistanc e with weight loss. 2014 015 george Philippe MD, [address], [place], [address], 5 10:23:06 Procedures None recorded. Surgeries None recorded. Imaging x-ray, chest, 2 view 2014 015 [facility], [address], [place], [address], 5 10:50:56 ultrasoun d, axilla - for eval of left axillary swelling. question lymphaden opathy vs lipoma 2014 015 [facility], [address], [address], [place], [address], 5 08:02:04 Medication Orders penicilli n V potassium 500 mg tablet 2013 014 [id number], [address], [place], [id number], 5 10:10:25 Patient Targets Encounter Date Encounter Id Patient Goals Patient Target Last Modified By Organization Details Last Modified Time 09/02/2014 [id number] intermediate frame tender goal of Excess Body Weight Loss % 5 Not available Not available Not available 09/02/2014 [id number] Pt advised and agrees to work on [...] Time 12/01/2013 [id number] strep throat: care instructions abolcun Not available 12/02/2013 16:20:12 sore throat: care instructions abolcun Not available 12/02/2013 16:20:12 09/02/2014 [id number] goiter: care instructions awychowski Not available 09/10/2014 08:02:03 starting a weight loss plan: care instructions broderick Not available 09/10/2014 08:02:03 Nutrition Referral and Weight Management Follow-up Information broderick Not available 09/10/2014 08:02:03 Reason for Referral Morning Caregiver/dietitian Refer ral for Body mass index 30+ - obesity Referring Physician: Levi Emery [facility], Encounter Date: 09/02/2014 Medical Weight Loss Program Referral for Body mass index 30+ - obesity For assistance with weight loss. Referring Physician: Levi Emery [facility], Encounter Date: 09/02/2014 Results Created Date Observation Date Name Description Value Unit Range Abnormal Flag Note LastModifiedBy Organization Detail LastModifiedTime 12/02/19 14 12/01/2013 rapid strep group A, throa t Strep positi ve Not Available In-Office Order Internal Use Only DO Not Attach Compendium DO Not Attach Compendium, Do Not Delete/merge, [id number] 12/01/2013 11:30:23 03/16/20 14 05/13/2012 US soft tissu e head/ neck Final Result Name: IZZY NAYAK 4 Sex: F : 1970 Locati on: F Admitt ing Physic gayathri: Reques ting Physic gayathri: Levi [facility] Exam: US-ST HEAD/N ROCIO 2012 08:18 EXAM: [...] Go To The Location Of Their Choice, [id number] 04/07/2015 04:10:25 09/09/19 15 09/07/2014 mm digit al mammo bilat eral Final Result Name CLARISA MAGANA 4 Sex F 12 21 1970 Locati on F Admitt ing Physic gayathri Reques ting Physic gayathri Levi [facility] Exam DIGITA L MAMMOG KLAUS DIAGNO STIC [...] (Benig n) Lay letter mailed to ag Gonzalez er-aid ed detect ion (CAD) was utiliz ed in the interp retati on of this study. WSN RII-WA [id number] Interp reting Radiol ogist Aroldo Tobias MD Attend ing Radiol ogist Aroldo Tobias MD Finali zing Radiol ogist Aroldo Tobias MD Transc ribed Date 09 08 2014 10 25 Finali zed Date 09 08 2014 10 25 Dictat ed By: Aroldo Tobias MD Dictat ed Date/T gisel: 10:28 am Review ed By: Aroldo Tobias MD Signed By: Aroldo Tobias MD Signed Date/T gisel: 10:28 am Transc ribed By: GUSTAVO Transc riptio n Date/T gisel: 10:28 am Birads : Patien t Class: Outpat ient build [facility] (Centralized Electronic Ordering - All Locations) Patient Can Go To The Location Of Their Choice, [id number] 04/07/2015 04:10:40 09/09/1909/07/2014 US breas t left Final Result Name [...] Go To The Location Of Their Choice, [id number] 04/07/2015 04:10:40 Result Notes None recorded. Problems Name Problem SNOMED Code Status Onset Date Resolution Date Notes Provider Name and Address Organization Details Recorded Time Acute pharyngi tis 804388566 Completed 09/02/2014 Levi Emery MD [address], [place], [address] , [facility] 5 10:28:07 Streptoc occal sore throat 75041560 Completed 09/02/2014 Levi Emery MD [address], [place], [address] , [facility] [place] 5 10:28:07 Patient status finding [id number] Completed 201212/08/2013 RECORDED 11/21/19 13 9:22AM BY CHIKIS PALACIOS MA, ANNOTATI ON/ADDEN DUM Not Available [facility] 4 05:22:48 Cough 58332636 Completed 201312/08/2013 IMPRESSI ON: FOLLOWIN G A IV STEROID PULSE I SUSPECT THIS IS GERD RELATED VS REBOUND ALLERGY SYMPTOMS . REASSESS AFTER TRYING TO TREAT BOTH POSSIBIL ITIES.; RECORDED 08/29/19 14 2:30PM BY AMAN GRIGGS MA, ANNOTSAMY ON/ADDEN DUM Not Available [facility] 4 05:22:48 Influenz a vaccine needed 49660325529 06 Completed 201112/08/2013 RECORDED 04/10/20 12 1:59PM BY CHIKIS PALACIOS MA, OFFICE VISIT Not Available [facility] 4 05:22:48 Body mass index 30+ - obesity 296553278 Active Levi Emery MD [facility] [address], [place], [address] , [facility] 5 08:02:03 Mass of axilla 432000718 Active Levi Emery MD [facility] [address], [place], [address] , [facility] 5 08:02:03 Mammogra phy abnormal 009517275 Active Levi Emery MD [facility] [address], [place], [address] , [facility] 5 12:50:48 Thyroid function tests abnormal 701492701 Active 2013 IMPRESSI ON: U/S C/W EARLY THYROIDI TIS. LABS UNREMARK ABLE. HAS APPT WITH ENDO, WILL REPEAT LABS PRIOR.; RECORDED 08/29/19 14 2:36PM BY AMAN GRIGGS MA, OFFICE VISIT Not Available [facility] 4 05:22:48 Adult health examinat ion Completed 201309/02/2014 IMPRESSI ON: IMMUNIZA TION STATUS UTD WILL SCREEN BASED ON RISK FACTORS. REGULAR DENTAL CARE AND SEATBELT USE ADVISED. 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 CERVICAL AND BREAST CANCER SCREENIN G ARE UTD. ADVANCE DIRECTIV ES SURINDER [place], FORM PROVIDED .; RECORDED 08/29/19 14 3:38PM BY LEVI Carlton MD, OFFICE VISIT Levi Emery MD [address] [facility] [address], [place], [address] , [facility] 5 10:28:07 Patient status finding [id number] Completed 201211/11/2013 RECORDED 11/21/19 13 9:22AM BY CHIKIS PALACIOS MA, ANNOTATI ON/ADDEN DUM Not Available [facility] 4 14:00:59 Screenin g for malignan t neoplasm of breast Completed 201309/02/2014 RECORDED 08/29/19 14 2:38PM BY AMAN GRIGGS MA, OFFICE VISIT Levi Emery MD [address] [facility] [address], [place], [address] , [facility] 5 10:28:07 Screenin g for malignan t neoplasm of cervix Completed 201309/02/2014 RECORDED 08/29/19 14 2:36PM BY AMAN GRIGGS MA, OFFICE VISIT Levi Emery MD [address] [facility] [address], [place], [address] , [facility] 5 10:28:08 Dis[address] ment of cervical interver tebral disc 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 REASSESS AFTER TRYING TO TREAT BOTH POSSIBIL ITIES.; RECORDED 08/29/19 14 2:30PM BY AMAN GRIGGS MA, ANNOTATI ON/ADDEN DUM Not Available [facility] 4 14:00:59 Allergic rhinitis 90863168 Active 2013 RECORDED 08/29/19 14 2:36PM BY AMAN GRIGGS MA, OFFICE VISIT Not Available [facility] 4 05:22:48 Influenz a vaccine needed 79500000957 06 Completed 201111/11/2013 RECORDED 04/10/20 12 1:59PM BY CHIKIS PALACIOS MA, OFFICE VISIT Not Available [facility] 4 14:00:59 Goiter 0862024 Active 2013 RECORDED 08/29/19 14 2:36PM BY AMAN GRIGGS MA, OFFICE VISIT Levi Emery MD [address], [place], [address] , [facility] 5 08:02:03 Pure hypergly ceridemi a 377311370 Active 2013 IMPRESSI ON: WILL REASSESS .; RECORDED 08/29/19 14 3:39PM BY LEVI Carlton MD, OFFICE VISIT Levi Emery MD [address], [place], [address] , [facility] 5 08:02:03 Lymphkatie ks 970176288 Active 2013 RECORDED 08/29/19 14 2:36PM BY AMAN GRIGGS MA, OFFICE VISIT Not Available [facility] 4 05:22:49 Patient status finding [id number] Completed 201309/02/2014 RECORDED 08/29/19 14 2:36PM BY AMAN GRIGGS MA, OFFICE VISIT Levi Emery MD [address] [facility] [address], [place], [address] , [facility] 5 10:28:07 Primary cardiomy opathy 68821528 Active 2013 STORY: PVC; IMPRESSI ON: ASYMPTOM ATIC. DR ROMAN LEFT THE AREA, PT HAS NOT ESTABLIS HED WITH NEW CARDIOLO GIST. I WILL FOLLOW THIS ISSUE FOR NOW.; RECORDED 08/29/19 14 3:39PM BY LEVI Carlton MD, OFFICE VISIT Not Available [facility] 4 05:22:49 Obesity 602778310 Active 2013 IMPRESSI ON: POTENTIA L CARE HOME HEALTH CONSEQUE NCES DISCUSSE D AND UNDERSTO OD. HEALTHIE R DIET AND EXERCISE HABITS ADVISED. ; RECORDED 08/29/19 14 3:38PM BY LEVI Carlton MD, OFFICE VISIT Not Available [facility] 4 05:22:49 Pain in limb 13947961 Completed 201309/02/2014 STORY: NL EMG AND MRI UNREMARK ABLE FOR NERVE COMPRESS ION; RECORDED 08/29/19 14 2:36PM BY AMAN GRIGGS MA, OFFICE VISIT Levi Emery MD [address] [facility] [address], [place], [address] , [facility] 5 10:28:44 Problem Notes None recorded. Procedures Surgical History Date Name Laterality Status Provider Name and Address Organization Details Recorded Time Other completed Chikis Palacios MA [facility] 09/02/2014 09:58:05 Imaging Results None recorded. Procedure [...] index (BMI) Body height Body temperature Systolic And Diastolic Provider Name and Address Organization Details Last Updated DateTime 5 99 % 99 % 999983. 0925 g 84 /min 38.9 kg/m2 170.815 cm 98.5 [degF] 142/84 mm[Hg] Chikis Palacios MA [facility] 5 10:07:09 Date Recorded Oxygen saturation Oxygen saturation in Arterial blood by Pulse oximetry Body weight Body temperature Body height Body mass index (BMI) Heart rate Systolic And Diastolic Provider Name and Address Organization Details Last Updated DateTime 4 99 % 99 % 830387. 94428 g 99.4 [degF] 170.815 cm 36.4 kg/m2 87 /min 120/79 mm[Hg] Chikis Palacios MA [facility] 4 11:30:23 Social History Question Answer Notes LastModified by Organizat ion Details LastModified Time Tobacco Smoking Status Never Smoker Not Available [facility] 03/02/2020 03:36:38 Do You Have An Advance Directive? Yes [id number] Information not available 03/02/2020 What Is Your Level Of Caffeine Consumption? Moderate Coffee [id number] Information not available 03/02/2020 What Type Of Diet Are You Following? REGULAR [id number] Information not available 03/02/2020 Which Illicit Or Recreational Drugs Have You Used? None [id number] Information not available 03/02/2020 Education 2 Year College Information not available 09/02/2014 Live Alone Or With Others? With Others Information not available 09/02/2014 How Many Children Do You Have? 2 [id number] Information not available 03/02/2020 Seat Belts Used Routinely Yes Information not available 09/02/2014 Do You Use Sunscreen Routinely? Yes [id number] Information not available 03/02/2020 Sex: Unknown Functional Status Question Answer Note LastModified by Organizat ion Details LastModified Time What is your level of alcohol consumption? Occasional [id number] Information not available 03/02/2020 Are you currently employed? 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 None [id number] Information not available 03/02/2020 Mental Status None [...] Recorded Time Tdap 9 completed Not Available [facility] 11/11/2013 13:49:14 influenza, seasonal, intradermal, preservative free 2 completed Not Available [facility] 11/11/2013 13:49:14 Past Encounters Encounter ID Performer Location Encounter Start Date Encounter Closed Date Diagnosis/Indication Diagnosis SNOMED-CT Code Diagnosis ICD10 Code Diagnosis Note [id number] Levi Emery MD Main Office [address] [address] 12/01/2013 11:15:09 12/01/2013 11:56:31 Acute pharyngitis 450794743 Streptococ cristhian sore throat 32844016 [id number] [employer] [address] [facility] [place] [address] 04/10/2012 00:00:00 [id number] [employer] [address] [facility] [place] [address] 07/03/2012 00:00:00 [id number] [employer] [address] [facility] [place] [address] 11/20/2012 00:00:00 [id number] [employer] [address] [facility] [place] [address] 08/28/2013 00:00:00 [id number] Levi Emery MD Main Office [address] [place] [address] 09/02/2014 09:49:35 09/02/2014 10:55:39 Adult health examination 720526883 Immunizati on status utd, flu advised in the Fall. Regular dental and ophtho care advised as well as seatbelt and sunscreen use. Distracted driving discussed. Advance directives in place. Body mass index 30+ - obesity 224381791 Pure hyperglyceridemia 585548993 Will reassess and consider rx of >500. Goiter 7546051 Mass of axilla 117574892 ? lymph node vs lipoma vs other soft tissue mass. Depending on result may need surgical consultati on. Health Concerns Section Related Observation LastModified by Organization Detai ls LastModified Time None Recorded Concern Status LastModified by Organization Details LastModified Time None Recorded Advance Directives Directive Y: Payers Insurance Date Sequence Insurance Name Policy Number Policy Wang Covered Member ID Wang Member ID Guarantor Name 08/30/2014 1 [facility] ([facility] [id number] Izzy Thomas [id number] Izzy Thomas OBGyn Episode No OBEpisode recorded.
[2024-11-04 08:52] VITALS: BMI 41.2
== END 2024-11-04 09:08 | disposition home or self-care (01) ==
LOC: HO.ENCR 08:29
PROVIDERS: PCP Internal Medicine; Visit Provider Dietitian, Registered
DX: E11.9 Type 2 diabetes mellitus without complications (principal)

== ENCOUNTER → 2024-11-04 08:28 | Outpatient (BNVA) | payer OTHER, SELFPAY | PROVIDERS: PCP Internal Medicine; Visit Provider Dietitian, Registered | DX: E11.9 Type 2 diabetes mellitus without complications (principal); E66.9 Obesity, unspecified; Z68.41 Body mass index [BMI] 40.0-44.9, adult; Z71.3 Dietary counseling and surveillance | CPT/HCPCS: 97802 ==

== ENCOUNTER 2024-11-18 09:29 | Outpatient (AMB) | payer OTHER, SELFPAY ==
--- OUTSIDE RECORDS SUMMARY | 2024-07-01 09:00 | XMS_ITS ---
Author Organization Frank Murillo MD Address [address] [place] [address] [phone] Care Team Providers Care Liturgical Music Director Name Role Phone Dat Onelia Primary Care Provider REASON FOR VISIT 1m f/u knee per [facility] Encounters Encounter Location Date Provider Diagnosis Frank Murillo MD [address] [place] [address] [place] [address] [phone] 07/01/2024 Onelia Daugherty Plan Of Treatment Next Appt Details Provider Name:Onelia Daugherty , 11/26/2024 11:30:00 AM, [address] [place] [address], [phone], Provider Name:Onelia Daugherty , 08/26/2025 10:30:00 AM, [address] [place] [address], [phone], Progress Notes * Ellen DIAZaDOB:1970 (53 yo F)Acc No.[id number]:07/01/2024 Progress Note Patient: Alejandra GONZALEZ Appointment Provider: Morenita Daugherty DNP :1970 A ge:53 Y S ex:Female Date:07/01/2024 Address: [address] [place], [place]-[id number] Subjective: * Chief Complaints: * 1 [...] Electronic signature of Lisa Daugherty DNP on 11/18/2024 at 10:05 AM EDT Sign off status: Pending * Appointment Provider: Morenita Daugherty DNP Date: 07/01/2024 Generated for Adilson holcomb/Samia/Antonio on: 11/18/2024 10:05 AM EDT
--- NOTE | 2024-11-18 09:31 | MHC.OFFVIS ---
Vital Signs 11/18/24 09:32 Height 5 ft 7 in Weight 273 lb 5.971 oz BMI 42.8 BP 110/78 Blood Pressure Location Rt brachial Pulse 89 Pulse Source Pulse Oximeter Pulse Oximetry (%) 98 Oxygen Delivery Method Room Air Intake Visit Reasons: Multinodular goiter (nontoxic) Intake Note: Patient present today for Type 2 Diabetes Mellitus: Pt needs a new Rx glucometer, lancets & test strips Last Diabetic eye exam: Coming up in November Last Podiatry Visit: Patient does not see a [employer] Random Glucose: 99 mg/dL HgA1C: 5.4% 10/07/24 Sat Math Tutor Required: No Accompanied by: Self / Same As Patient Allergies ketoprofen Allergy (Mild, Verified 11/18/24 09:33) Swelling Medication List - Last Reconciled 11/18/24 by Cherry Martinez MD carvedilol 12.5 mg PO BID cholecalciferol (vitamin D3) 50 mcg PO DAILY dapagliflozin propanediol (Farxiga) 10 mg PO DAILY rosuvastatin 40 mg PO DAILY sacubitril-valsartan 24-26 mg (Entresto) 1 tab PO BID spironolactone 25 mg PO DAILY tirzepatide (Mounjaro) 2.5 mg (0.5 mL) subcut QWEEK HPI Comments Details: 53-year-old female coming in today for follow up of nontoxic multinodular goiter and obesity. Multinodular goiter Per patient was diagnosed with Graves disease 2009, was one year at that time , and then was trying for second , was seeing endo at [facility], was never started on any medicine. Per patient was reccomended radio active iodine but was a new mom so decided not to get it at the time . Was also diagnosed with thyroid nodules in 2022, per patient had US at [facility] and had FNA biopsy of2 nodules , at [facility] in 08/2022, left lower 3.9 cm nodule was ND , and right lower 4.9 cm was benign. this was being managed by PCP, apparently had surveillance US in 2023 with stable nodules, I dont have this US , this per patient. Patient currently denies heat or cold intolerance, diarrhea or constipation, hair loss, anxiety, mood changes, changes in appearance of eyes or vision changes, tremors, increased diaphoresis or dry skin. ? Intermittent palpitations. Reports low energy Endorses some difficulty swallowing for a couple of years, pills , dry bites. Reports intermittent raspiness. No fullness or pressure sensation. Patient denies any history of childhood neck radiation. Denies having ever used lithium, amiodarone or biotin supplements. Patient denies any family history of thyroid cancer. Mother: thyroidectomy for nodules? Maternal GM: thyroidectomy for nodules? Sister : lobectomy for nodules? Was in [place] during [place], got iodine prophylaxis. TSH 1.01 from Mar 2024 Interval history Labs 10/07/24: thyroid function normal TSH and free t4, undetectable TSI, TPO , TSH receptor antibodies Still due for thyroid ultrasound scheduled 12/03/24 Obesity BMI 43.4 kg per m2 Current weight 276 lb no weight loss meds tried before Current weight is highest weight per patient Lowest weight she remembers was 235 lbs in 2019 when she was in her 40s achieved with keto diet lost 30 lbs Was overweight growing up, mother is now overweight , but was skinny growing up, siblings also skinny , both sisters Hystrectomy at 51 due to menorrhagia, ovaries intact, some intermittent hot flashes No history of NC or stroke. 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 [facility] Is not interested in weight loss surgery, apprehensive of it , motivated to lose weight with lifestyle modification and weight loss meds Interval history Current weigt 273 lbs , lost 3 lbs per our scale since last visit September 2024, after 5 injections of Mounjaro 2.5 mg weely, per patient lost 10 lbs on her scale Saw nutrionist September 2024, has follow up Exercise : Walks an hour daily, now also doing weight training every other day Physical exam General: sitting comfortably in no acute distress HEENT: normocephalic/atraumatic, , moist oral mucosa Neck: supple, symmetrical, Cardiac: normal heart sounds Pulm: normal breath sounds B/L, no added breath sounds Abd: not distended, no tenderness, no abdominal striae Extremities: no edema, Neuro: AAO x3, Speech: normal, no facial droop, moving all 4 extremities Laboratory Tests 10/07/24 10:27 Creatinine 0.69 Estimated GFR > 60 Random Glucose 100 Hemoglobin A1c % 5.4 TSH 0.58 Free T4 0.97 Total T3 131 Thyroid Stim Immunoglob <89 Thyroid Peroxidase Ab 6 TSH Receptor Ab <1.00 [facility] Medical History (Updated 10/07/24 @ 09:58 by Cherry Martinez MD) Diabetes mellitus Non-toxic multinodular goiter Obesity Surgical History (Updated 10/07/24 @ 09:07 by АННА Carlton) History of hernia surgery H/O: hysterectomy H/O knee surgery Family History (Updated 10/07/24 @ 09:08 by АННА Carlton) Mother Uterine cancer Diabetes Father Heart attack Social History (Updated 10/07/24 @ 09:10 by АННА Carlton) Alcohol intake: current Alcohol intake frequency: holidays/special occasions only Patient Tobacco Use Status: Never used Tobacco Physical Exam Vital Signs: Last Vital Signs Pulse 89 11/18/24 09:32 BP 110/78 11/18/24 09:32 Pulse Ox 98 11/18/24 09:32 Oxygen Delivery Method Room Air 11/18/24 09:32 BMI result Body Mass Index 42.8 Results Reviewed Results Reviewed: Laboratory Last Values Glucose (Clinic) 99 mg/dL (60-115) 11/18/24 09:37 Assessment & Plan Assessment & Plan (1) Non-toxic multinodular goiter: Code(s): E04.2 - Nontoxic multinodular goiter Category: Medical Plan: 53-year-old female with no family history of thyroid cancer, however multiple family members with thyroid nodules, with the exposure to [place] in [place], who received iodine prophylaxis coming in for follow up of nontoxic multinodular goiter. Diagnosed in 2022. While I do not have any of her previous ultrasound results, received cytology results from [facility], status post FNA August 2022 of right lower 4.9 cm nodule which came back as benign, [place] category 2, and a left lower 3.9 cm nodule which came back as nondiagnostic, [place] category 1. She did not have repeat biopsy of the left-sided nodule. Then had an ultrasound of the thyroid again last year in 2023 at [facility] which showed stable size of the nodules. I do not have this last ultrasound from [facility]. She is due for repeat thyroid ultrasound. This is already scheduled for 12/03/2024. At this time I will plan to repeat her thyroid ultrasound. She had normal TSH in March 2024, per patient she has also history of Graves disease diagnosed in 2009, where radioactive iodine was recommended but at that time she was and planning for another at age 41 so she did not want to go ahead with a it. Then she was lost to follow up. This was managed by endocrinology at [facility] at that time. Most recent blood work from September 2024 shows normal TFTs, undetectable TSH receptor, TSI and TPO antibodies so she does not have any autoimmune thyroid disease. Plan: -follow up after ultrasound thyroid is done to discuss results (2) Obesity: Code(s): E66.9 - Obesity, unspecified Category: Medical Qualifiers: Obesity type: due to excess calories Obesity classification: adult class 3 (BMI >= 40) Serious obesity comorbidity presence: with serious comorbidity Body mass index: BMI 40.0-44.9 Qualified Code(s): E66.813 - Obesity, class 3; Z68.41 - Body mass index [BMI] 40.0-44.9, adult Plan: Patient with class 3 obesity with current BMI 42.8 kg per m2, current weight at 273 lb down from 276 lb in 4 weeks. with comorbidities of PCOS, hypertension, hyperlipidemia, type 2 diabetes mellitus, currently well-controlled on Farxiga. 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 Has follow up. She is already exercising with 1 hour walk daily. In addition to that she has also started resistance training as previously advised. With weightlifting. Continue current aerobic activity. She is a candidate for weight loss surgery, however she is not interested in surgery at this time. She is very motivated to lose weight and is maintaining a good exercise regimen, plus some additional information giving regarding dietary education. In addition to lifestyle modification I would strongly believe that she is an excellent candidate for weight loss medications. No family history of thyroid cancer, no personal history of pancreatitis, no history of gallstones. No current alcohol use. This would be both for given diagnosis of type 2 diabetes mellitus as well as class 3 obesity. Mounjaro started at 2.5 mg weekly mid September 2024. Currently she is tolerating it well without any side effects. She has hypertension, hyperlipidemia, type 2 diabetes mellitus currently well-controlled on Farxiga and is at very high-risk of developing cardiovascular disease and diabetes and this medication we will result in about 15-20% weight loss which would be her target. 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 Most recent A1c is 5.4% from September 2024. Her type 2 diabetes mellitus was Diagnosed in January 2024 when A1c was 6.6%, no long-term insulin use, no history of microvascular or macrovascular complications. Managed by PCP, She was started on Farxiga 10 mg daily for both control of blood pressure as well it would help with management of her diabetes mellitus. While we are prescribing her Mounjaro and we will up titrate which would help with both her diabetes and weight management, we are exclusively seeing her for weight management, and her PCP can continue to follow up other aspects of care for diabetes mellitus. Patient is agreeable to this and aware. Plan: -increase Mounjaro to 5 mg weekly injection -continue Farxiga 10 mg daily. Plan I spent 30 minutes in reviewing the record, seeing the patient and documenting in the medical record. Medications: New tirzepatide (Mounjaro) 5 mg (0.5 mL) subcut QWEEK 2 mL 5RF Discontinued tirzepatide (Mounjaro) for 4 weeks Discontinued Reason: Duplicate 2.5 mg (0.5 mL) subcut QWEEK 2 mL 3RF E11.9 - Type 2 diabetes mellitus without complications, E28.2 - Polycystic ovarian syndrome, E66.813 - Obesity, class 3, E78.5 - Hyperlipidemia, unspecified, I10 - Essential (primary) hypertension, Z68.41 - Body mass index [BMI] 40.0-44.9, adult Patient Instructions: Increase Mounjaro to 5 mg weekly after injection 6 of 2.5 mg Continue lifestyle modification Follow up after thyroid ultrasound Coding Level of Care Code Est Pt Level 4 (75743) Diagnoses Non-toxic multinodular goiter E04.2 Class 3 severe obesity due to excess calories with serious comorbidity and body mass index (BMI) of 40.0 to 44.9 in adult E66.813; Z68.41 Obesity type: due to excess calories Obesity classification: adult class 3 (BMI >= 40) Serious obesity comorbidity presence: with serious comorbidity Body mass index: BMI 40.0-44.9 Type 2 diabetes mellitus without complication, without long-term current use of insulin E11.9 Diabetes mellitus type: type 2 Diabetes mellitus keno terminal operator insulin use: without keno terminal operator use Diabetes mellitus complication status: without complication Time Spent (min) 30
[2024-11-18 09:32] VITALS: BP 110/78; PULSE 89; O2SAT 98; BMI 42.8
[2024-11-18 09:42] LABS: Glucose, Whole Blood 99 mg/dL (60-115)
--- OUTSIDE RECORDS SUMMARY | 2024-11-18 10:05 | XMS_ITS | Data Portability ---
Author Organization [facility], Main Office Address [address] [facility] [address] [place] [address] Care Team Providers Care Tamale Machine Feeder Name Role Phone JUVENALLEVI RENEE Primary Care Provider AUSTIN GOLUD OTHER MALIA DEAN OTHER MATIAS MONET OTHER [...] DO Not Attach Compendium, Do Not Delete/merge, [id number] 4 12:34:37 Referral nutrition ist/dieti maribel referral 2014 015 broderick Not available 5 08:02:04 medical weight loss program referral - For assistanc e with weight loss. 2014 015 george Philippe MD, [address], [place], [address], 5 10:23:06 Procedures None recorded. Surgeries None recorded. Imaging x-ray, chest, 2 view 2014 015 [facility], [address], [place], [address], 5 10:50:56 ultrasoun d, axilla - for eval of left axillary swelling. 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 Excess Body Weight Loss % 5 Not available Not available Not available 09/02/2014 [id number] Pt advised and agrees to work on [...] instructions abolcun Not available 12/02/2013 16:20:12 09/02/2014 [id number] goiter: care instructions awychowski Not available 09/10/2014 08:02:03 starting a weight loss plan: care instructions broderick Not available 09/10/2014 08:02:03 Nutrition Referral and Weight Management Follow-up Information broderick Not available 09/10/2014 08:02:03 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 Referring Physician: Levi Emery [facility], Encounter Date: 09/02/2014 Results Created Date Observation Date Name Description Value Unit Range Abnormal Flag Note LastModifiedBy Organization Detail LastModifiedTime 12/02/19 14 12/01/2013 rapid strep group A, throa t Strep positi ve Not Available In-Office Order Internal Use Only DO Not Attach Compendium DO Not Attach Compendium, Do Not Delete/merge, [id number] 12/01/2013 11:30:23 03/16/20 14 05/13/2012 US soft tissu e head/ neck Final Result Name: IZZY NAYAK 4 Sex: F : 1970 Locati on: F Admitt ing Physic gayathri: Reques ting Physic gayathri: [facility] Exam: US-ST HEAD/N ROCIO 2012 08:18 [...] Go To The Location Of Their Choice, [id number] 04/07/2015 04:10:25 09/09/19 15 09/07/2014 mm digit al mammo bilat eral Final Result Name CLARISA MAGANA 4 Sex F 12 21 1970 Locati on F Admitt ing Physic gayathri Reques ting Physic gayathri [facility] Exam DIGITA L MAMMOG KLAUS DIAGNO [...] Go To The Location Of Their Choice, [id number] 04/07/2015 04:10:40 09/09/19 15 09/07/2014 US breas [...] Go To The Location Of Their Choice, [id number] 04/07/2015 04:10:40 Result Notes None recorded. Problems Name Problem SNOMED Code Status Onset Date Resolution Date Notes Provider Name and Address Organization Details Recorded Time Acute pharyngi tis 829942586 Completed 09/02/2014 Levi Emery MD [address], [place], [address] , [facility] 5 10:28:07 Streptoc occal sore throat 25438680 Completed 09/02/2014 Levi Emery MD [address], [place], [address] , [facility] 5 10:28:07 Body mass index 30+ - obesity 151806310 Active Levi Emery MD [address], [place], [address] , [facility] 5 08:02:03 Mass of axilla 858891823 Active Levi Emery MD [address], [place], [address] , [facility] 5 08:02:03 Mammogra phy abnormal 297211130 Active Levi Emery MD [address], [place], [address] , [facility] 5 12:50:48 Influenz a vaccine needed 12211104997 06 Completed 201112/08/2013 RECORDED 04/10/20 12 1:59PM BY CHIKIS PALACIOS MA, OFFICE VISIT Not Available [facility] 4 05:22:48 Influenz a vaccine needed 14963554164 06 Completed 201111/11/2013 RECORDED 04/10/20 12 1:59PM BY CHIKIS PALACIOS MA, OFFICE VISIT Not Available [facility] 4 14:00:59 Patient status finding [id number] Completed 201212/08/2013 RECORDED 11/21/19 13 9:22AM BY CHIKIS PALACIOS MA, ANNOTATI ON/ADDEN DUM Not Available [facility] 4 05:22:48 Patient status finding [id number] Completed 201211/11/2013 RECORDED 11/21/19 13 9:22AM BY CHIKIS PALACIOS MA, ANNOTATI ON/ADDEN DUM Not Available [facility] 4 14:00:59 Cough 90864863 Completed 201312/08/2013 IMPRESSI ON: FOLLOWIN G A IV STEROID PULSE I SUSPECT THIS IS GERD RELATED VS REBOUND ALLERGY SYMPTOMS . REASSESS AFTER TRYING TO TREAT BOTH POSSIBIL ITIES.; RECORDED 08/29/19 14 2:30PM BY AMAN GRIGGS MA, ANNOTATI ON/ADDEN DUM Not Available [facility] 4 05:22:48 Thyroid function tests abnormal 710729052 Active 2013 IMPRESSI ON: U/S C/W EARLY THYROIDI TIS. LABS UNREMARK ABLE. HAS APPT WITH ENDO, WILL REPEAT LABS PRIOR.; RECORDED 08/29/19 14 2:36PM BY MAAN GRIGGS MA, OFFICE VISIT Not Available [facility] 4 05:22:48 Adult health examinat ion Completed 201309/02/2014 IMPRESSI ON: IMMUNIZA TION STATUS UTD WILL SCREEN BASED ON RISK FACTORS. REGULAR DENTAL CARE AND SEATBELT USE ADVISED. 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 CERVICAL AND BREAST CANCER SCREENIN G ARE UTD. ADVANCE DIRECTIV ES SURINDER [place], FORM PROVIDED .; RECORDED 08/29/19 14 3:38PM BY LEVI Carlton MD, OFFICE VISIT Levi Emery MD [address] [address], [place], [address] , [facility] 5 10:28:07 Screenin g for malignan t neoplasm of breast Completed 201309/02/2014 RECORDED 08/29/19 14 2:38PM BY AMAN GRIGGS MA, OFFICE VISIT Levi Emery MD [address] [facility] [address], [place], [address] , [facility] 5 10:28:07 Screenin g for malignan t neoplasm of cervix Completed 201309/02/2014 RECORDED 08/29/19 14 2:36PM BY AMAN GRIGGS MA, OFFICE VISIT Levi Emery MD [address] [facility] [address], [place], [address] , [facility] 5 10:28:08 Displace ment of cervical interver tebral disc without myelopat hy 51293342 Active 2013 C6-7-POS TERIOR; RECORDED 08/29/19 14 2:36PM BY AMAN GRIGGS MA, OFFICE VISIT Not Available [facility] 4 05:22:48 Cough 49874711 Completed 201311/11/2013 IMPRESSI ON: FOLLOWIN G A IV STEROID PULSE I SUSPECT THIS IS GERD RELATED VS REBOUND ALLERGY SYMPTOMS . REASSESS AFTER TRYING TO TREAT BOTH POSSIBIL ITIES.; RECORDED 08/29/19 14 2:30PM BY AMAN GRIGGS MA, ANNOTATI ON/ADDEN DUM Not Available [facility] 4 14:00:59 Allergic rhinitis 37594297 Active 2013 RECORDED 08/29/19 14 2:36PM BY AMAN GRIGGS MA, OFFICE VISIT Not Available [facility] 4 05:22:48 Goiter 0258673 Active 2013 RECORDED 08/29/19 14 2:36PM BY AMAN GRIGGS MA, OFFICE VISIT Levi Emery MD [address], [place], [address] , [facility] 5 08:02:03 Pure hypergly ceridemi a 505864166 Active 2013 IMPRESSI ON: WILL REASSESS .; RECORDED 08/29/19 14 3:39PM BY LEVI Carlton MD, OFFICE VISIT Levi Emery MD [address], [place], [address] , [facility] 5 08:02:03 Lymphkatie tn 165640321 Active 2013 RECORDED 08/29/19 14 2:36PM BY AMAN GRIGGS MA, OFFICE VISIT Not Available [facility] 4 05:22:49 Patient status finding [id number] Completed 201309/02/2014 RECORDED 08/29/19 14 2:36PM BY AMAN GRIGGS MA, OFFICE VISIT Levi Emery MD [address], [place], [address] , [facility] 5 10:28:07 Primary cardiomy opathy 30805844 Active 2013 STORY: PVC; IMPRESSI ON: ASYMPTOM ATIC. DR ROMAN LEFT THE AREA, PT HAS NOT ESTABLIS HED WITH NEW CARDIOLO GIST. I WILL FOLLOW THIS ISSUE FOR NOW.; RECORDED 08/29/19 14 3:39PM BY LEVI Carlton MD, OFFICE VISIT Not Available [facility] 4 05:22:49 Obesity 155918027 Active 2013 IMPRESSI ON: POTENTIA L SENIOR LIVING HEALTH CONSEQUE NCES DISCUSSE D AND UNDERSTO OD. HEALTHIE R DIET AND EXERCISE HABITS ADVISED. ; RECORDED 08/29/19 14 3:38PM BY LEVI Carlton MD, OFFICE VISIT Not Available [facility] 4 05:22:49 Pain in limb 94330918 Completed 201309/02/2014 STORY: NL EMG AND MRI UNREMARK ABLE FOR NERVE COMPRESS ION; RECORDED 08/29/19 14 2:36PM BY AMAN GRIGGS MA, OFFICE VISIT Levi Emery MD [address] [facility] [address], [place], [address] , [facility] 5 10:28:44 Problem Notes None recorded. Procedures Surgical History Date Name Laterality Status Provider Name and Address Organization Details Recorded Time Other completed Chikis Palacios MA [facility] 09/02/2014 09:58:05 Imaging Results None recorded. [...] Updated DateTime 5 99 % 99 % 035114. 0925 g 84 /min 38.9 kg/m2 170.815 cm 98.5 [degF] 142/84 mm[Hg] Chikis Palacios MA [facility] 5 10:07:09 Date Recorded Oxygen saturation Oxygen saturation in Arterial blood by Pulse oximetry Body weight Body temperature Body height Body mass index (BMI) Heart rate Systolic And Diastolic Provider Name and Address Organization Details Last Updated DateTime 4 99 % 99 % 911480. 09371 g 99.4 [degF] 170.815 cm 36.4 kg/m2 87 /min 120/79 mm[Hg] Chikis Palacios MA [facility] 4 11:30:23 Social History Question Answer Notes LastModified by Organizat ion Details LastModified Time Tobacco Smoking Status Never Smoker Not Available [facility] 03/02/2020 03:36:38 Do You Have An Advance Directive? Yes [id number] Information not available 03/02/2020 What Is Your Level Of Caffeine Consumption? Moderate Coffee [id number] Information not available 03/02/2020 What Type Of Diet Are You Following? REGULAR [id number] Information not available 03/02/2020 Which Illicit Or Recreational Drugs Have You Used? None [id number] Information not available 03/02/2020 Education 2 Year College Information not available 09/02/2014 Live Alone Or With Others? With Others Information not available 09/02/2014 How Many Children Do You Have? 2 [id number] Information not available 03/02/2020 Seat Belts Used Routinely Yes Information not available 09/02/2014 Do You Use Sunscreen Routinely? Yes [id number] Information not available 03/02/2020 Sex: Unknown Functional Status Question Answer Note LastModified by Organizat ion Details LastModified Time What is your level of alcohol consumption? Occasional [id number] Information not available 03/02/2020 Are you currently employed? 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 None [id number] Information not available 03/02/2020 Mental Status None [...] Recorded Time Tdap 9 completed Not Available [facility] 11/11/2013 13:49:14 influenza, seasonal, intradermal, preservative free 2 completed Not Available [facility] 11/11/2013 13:49:14 Past Encounters Encounter ID Performer Location Encounter Start Date Encounter Closed Date Diagnosis/Indication Diagnosis SNOMED-CT Code Diagnosis ICD10 Code Diagnosis Note [id number] Levi Emery MD Main Office [address] [address] 12/01/2013 11:15:09 12/01/2013 11:56:31 Acute pharyngitis [id number] Streptococ cristhian sore throat 70683684 [id number] [employer] [address] [facility] [place] [address] 04/10/2012 00:00:00 [id number] [employer] [address] [facility] [place] [address] 07/03/2012 00:00:00 [id number] [employer]ce [address] [facility] [place] [address] 11/20/2012 00:00:00 [id number] [employer] [address] [facility] [place] [address] 08/28/2013 00:00:00 [id number] Levi Emery MD Main Office [address] [place] [address] 09/02/2014 09:49:35 09/02/2014 10:55:39 Adult health examination 012443506 Immunizati on status utd, flu advised in the Fall. Regular dental and ophtho care advised as well as seatbelt and sunscreen use. Distracted driving discussed. Advance directives in place. Body mass index 30+ - obesity 279825366 Pure hyperglyceridemia 151115606 Will reassess and consider rx of >500. Goiter 9508601 Mass of axilla 162168630 ? lymph node vs lipoma vs other [...] Wang Member ID Guarantor Name 08/30/2014 1 [facility] (O) [id number] Izzy Thomas [id number] Izzy Thomas OBGyn Episode No OBEpisode recorded.
== END 2024-11-18 10:46 | disposition home or self-care (01) ==
LOC: HO.ENCR 09:29
PROVIDERS: PCP Internal Medicine; Visit Provider Student in an Organized Health Care Education/Training Program
DX: E04.2 Nontoxic multinodular goiter (principal); E66.813 Obesity, class 3; Z68.41 Body mass index [BMI] 40.0-44.9, adult; E11.9 Type 2 diabetes mellitus without complications
CPT/HCPCS: 99214

== ENCOUNTER → 2024-11-18 09:29 | Outpatient (BNVA) | payer OTHER, SELFPAY | PROVIDERS: PCP Internal Medicine; Visit Provider Student in an Organized Health Care Education/Training Program | DX: E11.9 Type 2 diabetes mellitus without complications (principal) | CPT/HCPCS: 82947 ==

== ENCOUNTER 2024-12-03 11:42 | Outpatient (REF) | payer OTHER, SELFPAY ==
--- NOTE | ~2024-12-03 | US_ITS ---
EXAMINATION: US THYROID CLINICAL INFORMATION: Nontoxic multinodular goiter. COMPARISON: None available. TECHNIQUE: Linear transducer grayscale and color Doppler examination with attention to the region of the thyroid. FINDINGS: SIZE: Measurements of the thyroid lobes and nodules are given in sagittal, anteroposterior and transverse dimensions respectively. Right Thyroid Lobe: 8.8 x 2.8 x 2.5 cm, volume 46.2 mL. Parenchyma: The gland echotexture is heterogeneous. Thyroid vascularity is normal. Left Thyroid Lobe: 7.6 x 2.9 x 2.7 cm, volume 43.8 mL. Parenchyma: The gland echotexture is homogeneous. Thyroid vascularity is normal. Isthmus: 1.5 cm in maximum AP dimension. Estimated total number of nodules greater than or equal to 1 cm: 3. [employer]st nodules are described as follows: 1. Location: Right lower pole. Size: 3.4 x 2.7 x 2.9 cm, volume 13.7 mL. Nodule characteristics: Composition: Solid (2). Echogenicity: Hypoechoic (2). Shape: Wider but not taller Margins: Ill-defined (0). Echogenic Foci: None (0). ACR TI-RADS total points: 4 ACR TI-RADS category: 4 2. Location: Right mid pole. Size: 0.6 x 0.8 x 1.3 cm, volume 0.50 mL. Nodule characteristics: Composition: Solid (2). Echogenicity: Hyperechoic (1). Shape: Wider than taller Margins: Ill-defined (0). Echogenic Foci: None (0). ACR TI-RADS total points: 3 ACR TI-RADS category: 3 3. Location: Left midpole. Size: 1.2 x 0.8 x 1.0 cm, volume 0.50 mL. Nodule characteristics: Composition: Solid/almost completely solid (2). Echogenicity: Isoechoic (1). Shape: Wider Margins: Smooth (0). Echogenic Foci: None (0). ACR TI-RADS total points: 3 ACR TI-RADS category: 3 4. Location: Right mediastinal mass. Size: 0.8 x 0.5 at 0.5 cm, volume 0.11 mL. Nodule characteristics: Composition: Spongiform (0). Echogenicity: Anechoic (0). Shape: Wider Margins: Smooth (0). Echogenic Foci: 0 ACR TI-RADS total points: 0 ACR TI-RADS category: 1 NODES: No lymphadenopathy is seen in the tissue surrounding the thyroid gland. US/US thyroid IMPRESSION: Enlarged thyroid lobes with nonsuspicious nodules in both lobes except for the largest nodule measuring 3.4 cm right lobe lower pole right total points for entire TI-RADS 4. Recommend fine needle biopsy aspiration ACR TI-RADS RECOMMENDATION REFERENCE: Ultrasound-guided fine-needle aspiration, followup ultrasound, no further follow up. * TR1 (0 point) and TR2 (2 points): No FNA or follow up. * TR3 (3 points): FNA if more than or equal to 2.5 cm in maximum dimension, followup ultrasound in 1, 3 and 5 years if 1.5 to 2.4 cm in maximum dimension. * TR4 (4-6 points): FNA if more than or equal to 1.5 cm in maximum dimension, followup ultrasound in 1, 2, 3 and 5 years if 1 to 1.4 cm in maximum dimension. * TR5 (more than or equal to 7 points): FNA if more than or equal to 1 cm in maximum dimension, followup ultrasound every year for 5 years if 0.5 to 0.9 cm in maximum dimension. * TR3, TR4 or TR5 nodules that are below the size threshold for followup receive no follow up. Electronically signed by: Martín Riggs MD 12/03/2024 01:50 PM EDT
--- OUTSIDE RECORDS SUMMARY | 2024-12-03 12:29 | XMS_ITS | Patient Health Record ---
Author Organization [facility] Address [address] [id number] Care Team Providers Care Traffic Control Flagger Name Role Phone DaughertyOnelia Primary Care Provider Allergies Allergen (clinical drug ingredient) Drug/Non Drug Allergy documented on EMR Reaction Allergy Type Onset Date Status ketoprofen Ketoprofen Unknown Drug Allergy Activ e Results Component Value Reference Range Notes Hemoglobin [id number] Reviewed date:02/23/2024 08:32:31 AM Interpretation: Performing Lab:[facility], [address] [place] [address], Phone - [phone], Director - Kevin Notes/Report: Hemoglobin A1c 6.6 4.8-5.6 % . Prediabetes: 5.7 - 6.4 Diabetes: >6.4 Glycemic control for adults with diabetes: <7.0 B-Type Natriuretic Peptide-1 87637 Reviewed date:02/23/2024 08:32:31 AM Interpretation: Performing Lab:[facility], [address] [place] [address], Phone - [phone], Director - Kevin Notes/Report: B-Type Natriuretic Peptide 4.1 0.0-100.0 pg/m L Siemens ADVIA Centaur XP methodology Comp. Metabolic Panel (14)-3 30766 Reviewed date:02/23/2024 08:32:31 AM Interpretation: Performing Lab:[facility], [address] [facility], Phone - [phone], Director - Kevin Notes/Report: Glucose 98 70-99 [...] IU/L ALT (SGPT) 22 0-32 IU/L LP+Non-HDL Cholesterol-77856 5 Reviewed date:02/23/2024 08:32:31 AM Interpretation: Performing Lab:[facility], [address] [place] [address], Phone - [phone], Director - Cyndiey Notes/Report: Cholesterol, Total 234 100-199 mg/dL Triglycerides 182 0-149 mg/dL HDL Cholesterol 53 >39 mg/dL VLDL Cholesterol Pedro Pablo 33 5-40 mg/dL LDL Chol Calc (NIH) 148 0-99 mg/dL Non-HDL Cholesterol 181 0-129 mg/dL CR Knee RT 3 View Reviewed date:03/04/2024 03:23:31 PM Interpretation: Performing Lab: Notes/Report: MR Knee RT WO Reviewed date:04/07/2024 11:43:02 AM Interpretation: Performing Lab: Notes/Report: Hemoglobin T8c-151303 Reviewed date:04/24/2024 10:53:00 AM Interpretation: Performing Lab:[facility] [address] [place] [address], Phone - [phone], Director - MDGiseledry Notes/Report: Hemoglobin A1c 6.4 4.8-5.6 % . Prediabetes: 5.7 - 6.4 Diabetes: >6.4 Glycemic control for adults with diabetes: <7.0 Magnesium-878829 Reviewed date:04/24/2024 10:53:00 AM Interpretation: Performing Lab:[facility] [address] [place] [address], [place], Phone - [phone], Director - Jamdry Notes/Report: Magnesium 2.1 1.6-2.3 mg/dL CBC With Differential/Platel et-784244 Reviewed date:04/24/2024 10:53:00 AM Interpretation: Performing Lab:[facility], [address] [place] [address], Phone - [phone], Director - MDJodry Notes/Report: WBC 14.3 3.4-10.8 [...] Grans (Abs) 0.1 0.0-0.1 x10E3/uL Albumin/Creatinine Ratio,Uri ne-158327 Reviewed date:04/24/2024 10:53:00 AM Interpretation: Performing Lab:[facility], [address] [place] [address], Phone - [phone], Director - MDJodry Notes/Report: Creatinine, Urine 109.0 Not Estab. mg/dL Albumin, Urine 16.2 Not Estab. ug/mL Alb/Creat Ratio 15 0-29 mg/g creat Normal: 0 - 29 Moderately increased: 30 - 300 Severely increased: >300 B-Type Natriuretic Peptide-1 88325 Reviewed date:04/24/2024 10:53:00 AM Interpretation: Performing Lab:[facility] [place], Phone - [phone], Director - Kevin Notes/Report: B-Type Natriuretic Peptide 14.5 0.0-100.0 pg/m L Siemens ADVIA Centaur XP methodology Comp. Metabolic Panel (14)-3 19051 Reviewed date:04/24/2024 10:53:00 AM Interpretation: Performing Lab:[facility], [address] [place] [address], Phone - [phone], Director - Kevin Notes/Report: Glucose 75 70-99 [...] IU/L ALT (SGPT) 14 0-32 IU/L LP+Non-HDL Cholesterol-52792 5 Reviewed date:04/24/2024 10:53:00 AM Interpretation: Performing Lab:[facility], [address] [place] [address], Phone - [phone], Director - Kevin Notes/Report: Cholesterol, Total 140 100-199 mg/dL Triglycerides 120 0-149 mg/dL HDL Cholesterol 59 >39 mg/dL VLDL Cholesterol Pedro Pablo 21 5-40 mg/dL LDL Chol Calc (NIH) 60 0-99 mg/dL Non-HDL Cholesterol 81 0-129 mg/dL UA/M w/rflx Culture, Routine -[id number] Reviewed date:04/24/2024 10:53:00 AM Interpretation: Performing Lab:[facility], [address] [place] [address], Phone - [phone], Director - Kevin Notes/Report: Specific [place] 1.017 1.005-1.030 pH 5.5 5.0-7.5 Urine-Color Yellow [...] forming units per mL TSH reflex to [id number] Reviewed date:04/24/2024 10:53:00 AM Interpretation: Performing Lab:[facility], [address] [place] [address], Phone - [phone], Director - Kevin Notes/Report: TSH 1.100 0.450-4.500 uIU/mL US Thyroid Reviewed date:05/23/2024 11:19:24 AM Interpretation: Performing Lab: Notes/Report: CBC With Differential/Platel et-007462 Reviewed date:08/17/2024 02:52:02 PM Interpretation: Performing Lab:[facility], [address] [place] [address], Phone - [phone], Director - Kevin Notes/Report: WBC 13.1 3.4-10.8 x10E3/uL RBC 5.56 [...] granulocytes without clinical significance.) B-Type Natriuretic Peptide-1 63789 Reviewed date:08/17/2024 02:52:02 PM Interpretation: Performing Lab:[facility] [place], [address] [facility], Phone - [phone], Director - WVSidra Notes/Report: B-Type Natriuretic Peptide 16.6 0.0-100.0 pg/m L Siemens ADVIA Centaur XP methodology Comp. Metabolic Panel (14)-3 Reviewed date:08/17/2024 02:52:02 PM Interpretation: Performing Lab:[facility] [place], [address] [facility], [place], Phone - [phone], Director - Kevin Notes/Report: Glucose 146 70-99 mg/dL BUN 13 [...] 0-40 IU/L ALT (SGPT) 14 0-32 IU/L Knee 3 Views Right Reviewed date:02/21/2024 01:46:56 PM Interpretation: Performing Lab: Notes/Report: Knee 3 Views Right Reason: pain COMPARISON: None. FINDINGS: There is no evidence of acute or healing fracture, dislocation or bone lesion. Mild tricompartmental degenerative osteoarthritis but no evidence of osteochondral defect or intra-articular loose body. No evidence of joint effusion. IMPRESSION: Mild tricompartmental degenerative osteoarthritis but no acute abnormality. WSN: [id number] Ordering Physician: Onelia Daugherty Dictated By: Parmjit JIMENEZ, Mj Tejada MRI Joint Ext Lower W/O Cont rast [...] patellar cartilage. 5. Tiny Baer cyst. WSN: [id number] Ordering Physician: Onelia Daugherty Dictated By: Jose Shaffer MD US Soft Tissue Reviewed date:08/17/2024 02:52:02 PM Interpretation: Performing Lab: Notes/Report: US Soft Tissue Head/Neck Indication: NONTOXIC DIFFUSE GOITER; Clinical Question(s): Other: COMPARISON: 11/07/2023 FINDINGS: RIGHT THYROID LOBE: 7.7 x 3.2 x 3.4 cm, volume 44.1 cc. Nodule findings detailed below. Surrounding thyroid demonstrates heterogeneous echotexture. Normal parenchymal vascularity. Nodule #1: Mid-gland, 2 x 1 x 1.5 cm, solid, isoechoic, not cmkdti-cbsu-xxug, ill-defined margin, no echogenic foci. TI-RADS Category 3. This nodule previously measured 1.9 x 1.3 x 1 cm. LEFT THYROID LOBE: 7.1 x 2.9 x 3.1 cm, volume 33.0 cc. Normal homogeneous echotexture. Normal parenchymal vascularity. Nodule #1: Mid-gland, 1.1 x 0.9 x 1.2 cm, solid, isoechoic, not etbzdw-azfo-hxne, ill-defined margin, no echogenic foci. TI-RADS Category 3. This nodule previously measured 1.1 x 0.7 x 1.1 cm and is stable. ISTHMUS: Thickness: 1.1 cm. IMPRESSION: Diffusely enlarged thyroid. TiRADS Category 3 nodule on the right is stable from prior study. Recommend follow-up ultrasound in 3 years. TI-RADS 2017 reference: Tessler FN, Wood WD, Shakir EG, et al. [...] and I agree with this report. WSN: [id number] Ordering Physician: Frank Murillo Dictated By: Won Barnett MD Hemoglobin [id number]-[id number] Reviewed date:08/17/2024 02:52:01 PM Interpretation: Performing Lab:[facility] [address], Phone - [phone], Director - Kevin Notes/Report: Hemoglobin A1c 6.0 4.8-5.6 % . Prediabetes: 5.7 - 6.4 Diabetes: >6.4 Glycemic control for adults with diabetes: <7.0 Vitamin Z80-636190 Reviewed date:08/17/2024 02:52:01 PM Interpretation: Performing Lab:[facility], [address] [place] [address], Phone - [phone], Director - Kevin Notes/Report: Vitamin B12 963 640-0680 pg/mL Urinalysis, Complete-841587 Reviewed date:08/17/2024 02:52:01 PM Interpretation: Performing Lab:[facility] [address], Phone - [phone], Director - Kevin Notes/Report: Specific [place] >=1.030 1.005-1.030 pH 5.5 5.0-7.5 Urine-Color Yellow [...] None seen /lpf Bacteria Moderate None seen/Few Testosterone-485814 Reviewed date:08/17/2024 02:52:01 PM Interpretation: Performing Lab:[facility] [address], Phone - [phone], Director - Kevin Notes/Report: Testosterone 4 4-50 ng/dL Luteinizing Hormone(LH)-0042 83 Reviewed date:08/17/2024 02:52:01 PM Interpretation: Performing Lab:[facility] [address], Phone - [phone], Director - Kevin Notes/Report: LH 16.5 Adult Female Range Follicular phase 2.4 - 12.6 Ovulation phase 14.0 - 95.6 Luteal phase 1.0 - 11.4 Postmenopausal 7.7 - 58.5 FSH-431195 Reviewed date:08/17/2024 02:52:01 PM Interpretation: Performing Lab:[facility] [address] [place] [address], Phone - [phone], Director - Kevin Notes/Report: FSH 8.7 Adult Female Range Follicular phase 3.5 - 12.5 Ovulation phase 4.7 - 21.5 Luteal phase 1.7 - 7.7 Postmenopausal 25.8 - 134.8 Progesterone-933470 Reviewed date:08/17/2024 02:52:01 PM Interpretation: Performing Lab:[facility], [address] [place] [address], Phone - [phone], Director - Kevin Notes/Report: Progesterone 0.4 Follicular phase 0.1 - 0.9 Luteal phase 1.8 - 23.9 Ovulation phase 0.1 - 12.0 First trimester 11.0 - 44.3 Second trimester 25.4 - 83.3 Third trimester 58.7 - 214.0 Postmenopausal 0.0 - 0.1 Estrogens, Total-394082 Reviewed date:08/17/2024 02:52:01 PM Interpretation: Performing Lab:[facility] [address] [place] [address], Phone - [phone], Director - Kevin Notes/Report: Estrogens, Total 348 Prepubertal < 40 Female Cycle: 1-10 Days 16 - 328 11-20 Days 34 - 501 21-30 Days 48 - 350 Post-Menopausal 40 - 244 CBC With Differential/Platel et-298091 Reviewed date:08/17/2024 02:52:01 PM Interpretation: Performing Lab:[facility] [address] [place] [address], Phone - [phone], Director - Kevin Notes/Report: WBC 10.8 3.4-10.8 [...] Grans (Abs) 0.1 0.0-0.1 x10E3/uL Vitamin D, 86-Bgwppqi-876881 Reviewed date:08/17/2024 02:52:02 PM Interpretation: Performing Lab:[facility], [address] [facility], Phone - [phone], Director - Kevin Notes/Report: Vitamin D, 25-Hydroxy 32.9 30.0-100.0 ng/mL Vitamin D deficiency has been defined by the [place] of [employer] and an Endocrine Society practice guideline as a level of serum 25-OH vitamin D less than 20 ng/mL (1,2). The Endocrine Society went on to further define vitamin D insufficiency as a level between 21 and 29 ng/mL (2). 1. IOM ([place] of Medicine). 2010. Dietary reference intakes for calcium and D. [place]: The National Academies Press. 2. Latasha MF, Digna NC, Nasim JULIO, et al. Evaluation, treatment, and prevention of vitamin D deficiency: an Endocrine Society clinical practice guideline. JCEM. 2010; 96(7):1911-30. Albumin/Creatinine Ratio,Uri ne-700917 Reviewed date:08/17/2024 02:52:02 PM Interpretation: Performing Lab:[facility], [address] [facility], [place], Phone - [phone], Director - Kevin Notes/Report: Creatinine, Urine 109.5 Not Estab. mg/dL Albumin, Urine 8.1 Not Estab. ug/mL Alb/Creat Ratio 7 0-29 mg/g creat Normal: 0 - 29 Moderately increased: 30 - 300 Severely increased: >300 B-Type Natriuretic Peptide-1 33442 Reviewed date:08/17/2024 02:52:02 PM Interpretation: Performing Lab:[facility], [address] [place] [address], Phone - [phone], Director - WVAngeline Notes/Report: B-Type Natriuretic Peptide 16.0 0.0-100.0 pg/m L Siemens ADVIA Centaur XP methodology HCV Antibody RFX to Quant PC [id number] Reviewed date:08/17/2024 02:52:02 PM Interpretation: Performing [facility], [address] [place] [address], [place], Phone - [phone], Director - WVGiseledorota Notes/Report: HCV Ab Non Reactive Non Reactive Interpretation: Not infected with HCV unless early or acute infection is suspected (which may be delayed in an immunocompromised individual), or other evidence exists to indicate HCV infection. Comp. Metabolic Panel (14)-3 06563 Reviewed date:08/17/2024 02:52:02 PM Interpretation: Performing Lab:[facility], [address] [place] [address], Phone - [phone], Director - [facility] Notes/Report: Glucose 102 70-99 mg/dL BUN 10 [...] IU/L ALT (SGPT) 20 0-32 IU/L LP+Non-HDL Cholesterol-28270 5 Reviewed date:08/17/2024 02:52:02 PM Interpretation: Performing Lab:[facility], [address] [facility], [place], Phone - [phone], Director - Kevin Notes/Report: Cholesterol, Total 152 100-199 mg/dL Triglycerides 163 0-149 mg/dL HDL Cholesterol 54 >39 mg/dL VLDL Cholesterol Pedro Pablo 28 5-40 mg/dL LDL Chol Calc (NIH) 70 0-99 mg/dL Non-HDL Cholesterol 98 0-129 mg/dL TSH reflex to [id number]-[id number] Reviewed date:08/17/2024 02:52:02 PM Interpretation: Performing Lab:[facility], [address] [facility], [place], Phone - [phone], Director - Kevin Notes/Report: TSH 1.120 0.450-4.500 uIU/mL MM Digital Mammo Screening Reviewed date:09/23/2024 10:06:59 [...] Benign. Lay letter mailed to patient. 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) Diagnosis 2 Nontoxic single thyr oid nodule (E04.1) Diagnosis 3 Body mass index [BMI ] 45.0-49.9, adult (Z68.42) Referral Organization [facility] Referring Provider First Name Onelia Referring Provider Last Name Dat Referring Provider Speciality Nurse Prac juanpablo Referred Provider Specialty Endocrinolog y General [facility] 02:39[facility]39 PM >faxed with referral form Referral Priority Routine Reason meniscal tear, stres s fracture, edema, and cartilage involvement [facility] faxed Diagnosis 1 Pain in right knee ( M25.561) Referral Organization [facility] Referring Provider First Name Onelia Referring Provider Last Name Dat Referring Provider Speciality Nurse Prac juanpablo Referred Provider Specialty Orthopedic S urgery General Notes [facility] 03/01 04:33:40 PM >faxed with [facility] referral, [...] Provider Specialty Orthopedic S urgery General Notes [facility] Maureen Zachary 06/2023 11:36:53 AM > pt has appointment pending, Addressed To : Dat Rousseau, Fish stoddard, , Just want to let you know that I have an appointment scheduled at [facility] on April 11., Thank you,, Alejandra [...] Name Dat Referring Provider Speciality Nurse Prac jimmieioner Referred Provider Jerald Figueredo Referred Provider Specialty Orthopedic S urgery General Notes [facility] 03/31 11:52:40 AM >Faxed to [facility] with Referral form Referral Priority Routine Referral Appointment Date 05/09/2024 Reason Patient requesting r eferral to [facility] to discuss injectable medication for underlying BMI and hx of CHF and well as thyroid goiter and previous nodules faxed Diagnosis [address] (E04.0) Referral Organization [facility] Referring Provider First Name Onelia Referring Provider Last Name Dat Referring Provider Speciality Nurse Justin geronimo Referred Provider [facility], [facility] Referred Provider Specialty Endocrinolog y General Notes [facility] 06/29 01:24:47 PM >faxed Referral Priority Routine Referral Appointment Date 10/07/2024 Reason Any provider for rain ual skin check request made by patient faxed Diagnosis 1 Melanocytic nevi, un specified (D22.9) Referral Organization [facility] Referring Provider First Name Onelia Referring Provider Last Name Dat Referring Provider Speciality Nurse Justin geronimo Referred Provider [facility] Referred Provider Specialty Dermatology General Notes [facility] 06/[facility] 12:59:37 PM >faxed Referral Priority Routine Medications Medication SIG (Take, Route, Frequency, Duration) Notes Start Date End Date Status Pantoprazole Sodium 40 MG TAKE 1 TABLET BY MOUTH DAILY Oral; Duration: 90 Days Active Farxiga 10 MG 1 tablet Orally Once a day; Duration: 30 days Active Carvedilol 12.5 MG TAKE 1 TABLET BY SAUL TH TWICE DAILY WITH FOOD; Duration: 30 Active Vitamin D3 50 MCG (1999 UT) TAKE 2 TABLE TS BY MOUTH ONCE A DAY; Duration: 30 Active Mounjaro 5 MG/0.5ML as directed Subcutan eous weekly; Duration: 28 days Active Rosuvastatin Calcium 40 MG TAKE 1 TABLET BY MOUTH DAILY; Duration: 90 Active Spironolactone 25 MG TAKE 1 TABLET BY MO UTH DAILY; Duration: 30 Active Spironolactone 25 MG 1 tablet Orally Onc e a day; Duration: 30 days Active Entresto 24-26 MG TAKE 1 TABLET BY SAUL TH TWICE DAILY; Duration: 30 Active Immunizations Vaccine Route Administration Date Status Comme nts Td (adult), absorbed Unknown 03/12/2020 Administered Influenza-Afluria (IIV4) Unknown 02/18/2021 Administere d Influenza-Afluria (IIV4) Unknown 02/21/2023 Administere d Gsdlffcmc-4604-34 Afluria-Single Unknown 02/24/2022 Adm inistered [id number]-23-Ermrsmb Vaccine Unknown 05/12/2020 Administere d CHJLG-32-Fxgfiod Vaccine Unknown 06/09/2020 Administere d SVUVG-30-Zniiyke Vaccine Unknown 08/16/2021 Administere d *Tdap Unknown 12/28/2008 Administered *Influenza-Fluzone Unknown 02/28/2024 Administered Social History Alcohol Screen (Audit-C) Question [...] W/U Status Risk Notes Problem Simple goiter (583642623) 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) Active confirmed Problem Non-toxic single thyroid nodule (526369730) Nontoxic single thyroid nodule (E04.1) Active confirmed Problem Toxic diffuse goiter with no crisis (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) 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) Active confirmed Problem Hyperglycemia due to type 2 diabetes mellitus (610562636572976) Type 2 diabetes mellitus with hyperglycemia (E11.65) Active confirmed Problem Vitamin D deficiency (42964493) Vitamin D deficiency, unspecified (E55.9) Active confirmed Problem Morbid obesity (disorder) (403778729) Morbid (severe) obesity due to excess calories (E66.01) Active confirmed Problem Mixed hyperlipidemia (591122927) Mixed hyperlipidemia (E78.2) Active confirmed Problem Chronic kidney disease due to hypertension (569796936188950) Hypertensive chronic kidney disease with stage 1 through stage 4 chronic kidney disease, or unspecified chronic kidney disease (I12.9) Active confirmed Problem Dilated cardiomyopathy (126858939) Dilated cardiomyopathy (I42.0) Active confirmed Problem Chronic systolic heart failure (726731462) Chronic systolic (congestive) heart failure (I50.22) Active confirmed Problem Chronic diastolic heart failure (678014580) Chronic diastolic (congestive) heart failure (I50.32) Active confirmed Problem Chronic kidney disease stage 1 (422931603) Chronic kidney disease, stage 1 (N18.1) Active confirmed Problem Menopause (423817932) Menopausal and female climacteric states (N95.1) Active confirmed Problem Hereditary lymphedema (690506635) Hereditary lymphedema (Q82.0) Active confirmed Problem Oral phase dysphagia (673288678) Dysphagia, oral phase (R13.11) Active confirmed Problem Body mass index 40+ - severely obese (950893504) Body mass index [BMI] 45.0-49.9, adult (Z68.42) Active confirmed Vital Signs Heart Rate 87 /min 11/26/2024 Temperature 97.2 degrees Fahrenheit 11/26/2024 Blood pressure diastolic 72 mm Hg 11/26/2024 Oximetry 98 % 11/26/2024 Height 5 ft 7 in in 11/26/2024 Blood pressure systolic 122 mm Hg 11/26/2024 Weight 264 lbs 11/26/2024 BMI 41.34 kg/m2 11/26/2024 Encounters Encounter Location Date Provider Diagnosis Frank Murillo MD [address] [id number] 12/27/2023 Onelia Murillo MD [address] [id number] 02/20/2024 Onelia Daugherty Hypertensive chronic kidney disease with [...] disease, stage 1 N18.1 Frank Murillo MD [address] [id number] 03/12/2024 Onelia Daugherty Hypertensive chronic kidney disease with stage 1 through stage 4 chronic kidney disease, or unspecified chronic kidney disease I12.9 ; Unspecified tear of unspecified meniscus, current injury, right knee, initial encounter S83.206A ; Chronic kidney disease, stage 1 N18.1 ; Hereditary lymphedema Q82.0 and Chronic systolic (congestive) heart failure I50.22 Frank Murillo MD [address] [id number] 03/19/2024 Onelia Daugherty Hypertensive chronic kidney disease with stage 1 through stage 4 chronic kidney disease, or unspecified chronic kidney disease I12.9 ; Unspecified tear of unspecified meniscus, current injury, right knee, initial encounter S83.206A ; Chronic kidney disease, stage 1 N18.1 ; Chronic systolic (congestive) heart failure I50.22 and Dilated cardiomyopathy I42.0 Frank Murillo MD [address] [id number] 03/31/2024 Onelia Daugherty Hypertensive chronic kidney disease with stage 1 through stage 4 chronic kidney disease, or unspecified chronic kidney disease I12.9 ; Chronic kidney disease, stage 1 N18.1 ; Chronic systolic (congestive) heart failure I50.22 ; Dilated cardiomyopathy I42.0 and Complex tear of medial meniscus, current injury, right knee, initial encounter S83.231A Frank Murillo MD [address] [id number] 04/07/2024 Onelia Daugherty Hypertensive chronic kidney disease with stage 1 through stage 4 chronic kidney disease, or unspecified chronic kidney disease I12.9 ; Chronic kidney disease, stage 1 N18.1 ; Chronic systolic (congestive) heart failure I50.22 ; Dilated cardiomyopathy I42.0 and Complex tear of medial meniscus, current injury, right knee, initial encounter S83.231A Frank Murillo MD [address] [id number] 04/17/2024 Onelia Daugherty Hypertensive chronic kidney disease [...] Cramp and spasm R25.2 Frank Murillo MD [address] [id number] 05/01/2024 Onelia Daugherty Hypertensive chronic kidney disease with stage 1 through stage 4 chronic kidney disease, or unspecified chronic kidney disease I12.9 ; Chronic kidney disease, stage 1 N18.1 ; Chronic systolic (congestive) heart failure I50.22 ; Dilated cardiomyopathy I42.0 and Complex tear of medial meniscus, current injury, right knee, initial encounter S83.231A Frank Murillo MD [address] [id number] 06/04/2024 Onelia Daugherty Hypertensive chronic kidney disease with stage 1 through stage 4 chronic kidney disease, or unspecified chronic kidney disease I12.9 ; Chronic kidney disease, stage 1 N18.1 ; Chronic systolic (congestive) heart failure I50.22 ; Dilated cardiomyopathy I42.0 and Complex tear of medial meniscus, current injury, right knee, initial encounter S83.231A Frank Murillo MD [address] [id number] 07/21/2024 Onelia Daugherty Hypertensive chronic kidney disease [...] Melanocytic nevi, unspecified D22.9 Frank Murillo MD [address] [id number] 08/13/2024 Onelia Daugherty Encounter for genera l [...] behavioral disorders, unspecified Z13.30 Frank Murillo MD [address] [id number] 11/26/2024 Onelia aDugherty Type 2 diabetes mellitus with hyperglycemia E11.65 ; Hypertensive chronic kidney disease with stage 1 through stage 4 chronic kidney disease, or unspecified chronic kidney disease I12.9 ; Chronic systolic (congestive) heart failure I50.22 ; Dilated cardiomyopathy I42.0 ; Nontoxic diffuse goiter E04.0 ; Hereditary lymphedema Q82.0 and Chronic kidney disease, stage 1 N18.1 Frank Murillo MD [address] [id number] 12/27/2023 Onelia Murillo MD [address] [id number] 02/21/2024 Onelia Murillo MD [address] [id number] 02/22/2024 Onelia Murillo MD [address] [id number] 02/23/2024 Onelia Murillo MD [address] [id number] 03/20/2024 Onelia Murillo MD [address] [id number] 03/24/2024 Onelia Murillo MD [address] [id number] 03/31/2024 Onelia Murillo MD [address] [id number] 04/24/2024 Onelia Murillo MD [address] [id number] 05/16/2024 Onelia Murillo MD [address] [id number] 06/17/2024 Onelia Murillo MD [address] [id number] 08/17/2024 Onelia uMrillo MD [address] [id number] 12/04/2023 Onelia Harringtone Thyrotoxicosis with diffuse goiter without thyrotoxic crisis or storm E05.00 ; Nontoxic single thyroid nodule E04.1 and Body mass index [BMI] 45.0-49.9, adult Z68.42 Frank Murillo MD [address] [id number] 03/10/2024 Onelia Murillo MD [address] [id number] 03/14/2024 Onelia Murillo MD [address] [id number] 03/17/2024 Onelia Murillo MD [address] [id number] 03/17/2024 Onelia Murillo MD [address] [id number] 03/17/2024 Onelia Murillo MD [address] [id number] 03/24/2024 Onelia Murillo MD [address] [id number] 03/25/2024 Onelia Murillo MD [address] [id number] 03/26/2024 Onelia Murillo MD [address] [id number] 04/01/2024 Onelia Murillo MD [address] [id number] 06/23/2024 Onelia Murillo MD [address] [id number] 07/11/2024 Onelia Daugherty Assessments Encounter Date Diagnosis (ICD Code) Assessment Notes Treatment Notes Treatment Clinical Notes Section Notes 12/04/2023 Nontoxic single thyroid nodule (ICD-10 - E04.1) 12/04/2023 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 Patient to remain on Entresto as well as carvedilol and she is to seed cone picker and begin her spironolactone today for additional BP management. Patient to follow-up in 2 weeks to reassess blood pressure since starting spironolactone 03/31/2024 Hypertensive chronic kidney disease with stage [...] be 76). Patient was recently approved for [employer] and plans to pick that up from the pharmacy today 04/07/2024 Hypertensive chronic kidney disease with stage [...] and began consistent use of these medications 04/17/2024 Hypertensive chronic kidney disease with stage [...] labs.Plan be for annual in 1 year 11/26/2024 Type 2 diabetes mellitus with hyperglycemia (ICD-10 - E11.65) In office A1c noted to be 5.3. Patient to remain on Mounjaro 5 mg weekly for further management of type 2 diabetes as well as lowering her BMI. Plan will be for follow-up in 3 months 11/26/2024 Hypertensive chronic kidney disease with stage 1 through stage 4 chronic kidney disease, or unspecified chronic kidney disease (ICD-10 - I12.9) Blood pressure stable and patient to continue with her current medication regimen. 05/01/2024 Hypertensive chronic kidney disease with stage 1 through stage 4 chronic kidney disease, or unspecified chronic kidney disease (ICD-10 - I12.9) Blood pressure continues to show improvement now the patient is more compliant with her medication regimen. Patient to remain on her current medication regimen daily and plan will be for follow-up in 1 month to reassess blood pressure 05/01/2024 Chronic kidney disease, stage 1 (ICD-10 - N18.1) Stable on previous labs. Patient to remain on Farxiga for further kidney protection and control of comorbidities such as heart failure and hypertension 11/26/2024 Chronic systolic (congestive) heart failure (ICD-10 - I50.22) Previous Echo results suggest underlying Systolic Heart Failure with an EF of 40%-45%. Pt to continue taking Carvedilol as well as Entresto to assist with management of her underlying CHF and symptoms. Patient patient also agreeable to obtain an updated echocardiogram to reassess EF as patient has been consistent with Entresto use and management of heart failure 08/13/2024 Chronic systolic (congestive) heart failure (ICD-10 - I50.22) Previous Echo results suggest underlying Systolic Heart Failure with an EF of 40%-45%. Pt to continue taking Carvedilol as well as Entresto to assist with management of her underlying CHF and symptoms. Patient was previously prescribed Wegovy given her underlying heart failure diagnosis but patient's [employer] insurance denied this. Patient is now pending an endocrinology appointment with [facility] to determine if patient can obtain [...] her underlying heart failure diagnosis but patient's [employer] insurance denied this. Patient is requesting a referral to endocrinology per [facility]'s request to see if she would benefit [...] carrier continues to review through a PA. 03/31/2024 Chronic systolic (congestive) heart failure (ICD-10 - I50.22) Previous Echo results suggest underlying Systolic Heart Failure with an EF of 40%-45%. Pt to continue taking Carvedilol as well as Entresto to assist with management of her underlying CHF and symptoms. Patient was prescribed Wegovy and her insurance carrier continues to review through a PA. She was also prescribed Farxiga, which she will seed cone picker from the pharmacy and begin today 04/07/2024 Chronic kidney disease, stage 1 (ICD-10 - N18.1) Stable on previous labs (level noted to be 75). Patient to remain on Farxiga as well 03/19/2024 Chronic kidney disease, stage 1 (ICD-10 [...] imaging to assess for underlying meniscal tear 03/12/2024 Chronic kidney disease, stage 1 (ICD-10 - N18.1) Stable on previous labs (level noted to be 75) 02/20/2024 Chronic diastolic (congestive) heart failure (ICD-10 [...] with lowering her BMI and CHF management 12/04/2023 Body mass index [BMI] 45.0-49.9, adult (ICD-10 - Z68.42) 03/12/2024 Hereditary lymphedema (ICD-10 - Q82.0) Pt continues to be followed by Lymph Edema specialist at [facility]. She recently stopped with PT and continues using her leg wraps and feels improvement in leg swelling due to lymphedema 02/20/2024 Body mass index [BMI] 45.0-49.9, adult (ICD-10 - Z68.42) Patient was previously evaluated by weight management facility through [facility] and she states she does not want [...] learn proper administration of this weekly injection 03/19/2024 Chronic systolic (congestive) heart failure (ICD-10 [...] and to help lower her BMI 04/07/2024 Chronic systolic (congestive) heart failure (ICD-10 [...] failure and to help lower her BMI 07/21/2024 Dilated cardiomyopathy (ICD-10 - I42.0) See plan above.Patient to remain on current medication regimen and discussed in length that patient would benefit from semaglutide therapy given underlying heart failure. Patient is requesting an updated referral to [facility] endocrinology to discuss beginning this medication has helped him but will not approve this without endocrinology evaluation 06/04/2024 Chronic systolic (congestive) heart failure (ICD-10 - I50.22) Previous Echo results suggest underlying Systolic Heart Failure with an EF of 40%-45%. Pt to continue taking Carvedilol as well as Entresto to assist with management of her underlying CHF and symptoms. Patient was prescribed Wegovy and her insurance carrier continues to review through a PA. 08/13/2024 Dilated cardiomyopathy (ICD-10 - I42.0) See plan above.Patient to remain on current medication regimen and discussed in length that patient would benefit from semaglutide therapy given underlying heart failure. Patient is pending an appointment with [facility] endocrinology to discuss beginning this medication as [facility] will not approve this as ordered through a primary care office 11/26/2024 Dilated cardiomyopathy (ICD-10 - I42.0) See plan above.Patient to remain on current medication regimen including Mounjaro for further management of heart failure, with lowering her BMI, and management of type 2 diabetes 05/01/2024 Chronic systolic (congestive) heart failure (ICD-10 - I50.22) Previous Echo results suggest underlying Systolic Heart Failure with an EF of 40%-45%. Pt to continue taking Carvedilol as well as Entresto to assist with management of her underlying CHF and symptoms. Patient was prescribed Wegovy and her insurance carrier continues to review through a PA. 05/01/2024 Dilated cardiomyopathy (ICD-10 - I42.0) See plan above.Patient to remain on current medication regimen and the office will continue to work on the prior authorization for Wegovy as this will further support her chronic comorbidities or failure and to help lower her BMI 11/26/2024 Nontoxic diffuse goiter (ICD-10 - E04.0) Patient with previous findings of thyroid nodules that were biopsied with negative results. Patient is followed by [facility] and is pending an updated thyroid ultrasound to reassess thyroid nodules 08/13/2024 Chronic kidney disease, stage 1 (ICD-10 [...] - S83.231A) Patient was recently evaluated by [facility] as well as [facility] due [...] failure and to help lower her BMI 03/31/2024 Complex tear of medial meniscus, current injury, right knee, initial encounter (ICD-10 - S83.231A) Patient was recently evaluated by [facility] due to right knee pain and [...] her left knee. [facility] [place] and provided them with patient's information and [...] and to help lower her BMI 03/12/2024 Chronic systolic (congestive) heart failure (ICD-10 [...] management of comorbidities such as heart failure 02/20/2024 Morbid (severe) obesity due to excess calories (ICD-10 - E66.01) See plan above 02/20/2024 Hereditary lymphedema (ICD-10 - Q82.0) Pt continues to be followed by Lymph Edema specialist at [facility]. She recently stopped with PT and continues using her leg wraps and feels improvement in leg swelling. 04/17/2024 Mixed hyperlipidemia (ICD-10 - E78.2) Patient continues to take rosuvastatin without any negative side effects. Will obtain an updated lipid panel to ensure improvement in her LDL level since increasing her statin dose 04/07/2024 Complex tear of medial meniscus, current injury, right knee, initial encounter (ICD-10 - S83.231A) Patient was recently evaluated by [facility] as well as [facility] due [...] give the cortisone injection time to work 06/04/2024 Complex tear of medial meniscus, current [...] Patient is requesting possible referral placed to [facility] endocrinology per patient's request 08/13/2024 Complex tear of medial meniscus, current injury, right knee, initial encounter (ICD-10 - S83.231A) Patient is status post right knee arthroscopy as well as repair of right meniscal tear. Patient has returned back to work and she denies any pain, swelling, or instability in her right knee post surgical procedure 11/26/2024 Hereditary lymphedema (ICD-10 - Q82.0) Pt continues to be followed by Lymph Edema specialist at [facility]. She previously completed a course of physical therapy at the lymphedema clinic and continues to use her compression wraps and leg wraps to overall improve her lymphedema and swelling symptoms 05/01/2024 Complex tear of medial meniscus, current [...] her symptoms worsen or new symptoms begin 11/26/2024 Chronic kidney disease, stage 1 (ICD-10 - N18.1) GFR stable on most recent labs 07/21/2024 Melanocytic nevi, unspecified (ICD-10 - D22.9) Patient is requesting referral for a equine dentist to complete annual skin checks. No large concerns expressed by patient other than wanting a skin check and referral to [place] [facility] made at this time 08/13/2024 Dysphagia, oral phase (ICD-10 - R13.11) Patient previously evaluated by GI and underwent an Endoscopy. Patient states after undergoing her endoscopy and having her esophagus stretched her dysphagia and reflux have improved. Patient to continue taking her PPI as needed and to follow-up with any worsening reflux symptoms 04/17/2024 Type 2 diabetes mellitus with hyperglycemia (ICD-10 - E11.65) Patient's previous A1c noted to be 6.6. Would like patient to begin Wegovy for further management of not only her glucose levels, but to assist in lowering her BMI. Patient aware that her Wegovy seems to be in the PA process and will continue to monitor for approval or denial of this medication 02/20/2024 Thyrotoxicosis with diffuse goiter without thyrotoxic [...] surgeon to discuss removal if nodules grow 02/20/2024 Nontoxic single thyroid nodule (ICD-10 - E04.1) See plan above 04/17/2024 Nontoxic diffuse goiter (ICD-10 - E04.0) [...] an updated A1c level for further evaluation 04/17/2024 Cramp and spasm (ICD-10 - R25.2) Patient does have intermittent lower extremiity cramping and encouraged patient to continue magnesium glycinate 400 mg daily to further assist in managing her intermittent episodes of cramping. Will also obtain a magnesium level to determine if patient has underlying concerns of low magnesium levels 08/13/2024 Nontoxic diffuse goiter (ICD-10 - E04.0) Patient with stable thyroid nodules and continued thyromegaly noted on exam and ultrasound. Patient previously requested referral to [facility] and referral was placed per patient's request 02/20/2024 Mixed hyperlipidemia (ICD-10 - E78.2) Patient continues to take rosuvastatin without any negative side effects. Will obtain an updated lipid panel to ensure improvement in her LDL level since increasing her statin dose 02/20/2024 Type 2 diabetes mellitus with hyperglycemia (ICD-10 - E11.65) Patient's previous A1c noted to be 6.6. Would like patient to begin Wegovy for further management of not only her glucose levels, but to assist in lowering her BMI. Will obtain an updated A1c level at this time 08/13/2024 Hereditary lymphedema (ICD-10 - Q82.0) Pt continues to be followed by Lymph Edema specialist at [facility]. She previously completed a course of physical therapy at the lymphedema clinic and continues to use her compression wraps and leg wraps to overall improve her lymphedema and swelling symptoms 08/13/2024 Menopausal and female climacteric states (ICD-10 [...] Patient completed her colonoscopy in 2023 through [facility] gastroenterology and she is up-to-date with colon cancer screenings at this time 08/13/2024 Encounter for screening mammogram for malignant neoplasm of breast (ICD-10 - Z12.31) Patient is due for an updated mammogram and order placed to [facility] location to ensure patient remains up-to-date with [...] removed during the surgery. Patient to contact [facility] and schedule a Pap smear if warranted to ensure she is up-to-date with cervical cancer screenings 08/13/2024 Encounter for screening examination for mental health and behavioral disorders, unspecified (ICD-10 - Z13.30) PHQ score reviewed no further interventions warranted at this time 03/12/2024 Other 08/13/2024 Other Plan Of Treatment Pending Test Test Name Order Date Echocardiogram 11/26/2024 Colonoscopy 06/26/2022 MAMMOGRAM, SCREENING 08/13/2024 US Guided Fine Needle Aspiration 023 Hemoglobin A1C 11/26/2024 Next Appt Details Provider Name:Onelia Sharma Daugherty , 02/25/2025 11:30:00 AM, [address] [place] [address], [place] [address], [place], [place], [phone], Provider Name:Onelia Daugherty , 08/26/2025 10:30:00 AM, [address] [place] [address], [place] [address], [place], [place], [phone], Insurance Providers Payer Name Payer Address Payer Phone Subscriber Number Group Number Insured Name Patient Relationship to Insured Coverage Start Date Coverage End Date [facility] [address] [place] [phone] [id number] Alejandra Thomas Self - patient is the [...]
== END 2024-12-03 11:43 | disposition home or self-care (01) ==
LOC: HO.US 11:42
PROVIDERS: PCP Internal Medicine; Visit Provider Student in an Organized Health Care Education/Training Program
DX: E04.2 Nontoxic multinodular goiter (principal)
CPT/HCPCS: 76536

== ENCOUNTER → 2024-12-03 11:43 | Outpatient (BNV) | payer OTHER, SELFPAY | PROVIDERS: PCP Internal Medicine; Visit Provider Radiology Diagnostic Radiology | DX: E04.2 Nontoxic multinodular goiter (principal) | CPT/HCPCS: 76536 ==

== ENCOUNTER 2024-12-10 16:04 | Outpatient (AMB) | payer OTHER, SELFPAY ==
[2024-12-10 16:06] VITALS: BP 120/76; PULSE 85; O2SAT 96; BMI 40.7
--- NOTE | 2024-12-10 16:06 | MHC.OFFVIS ---
Vital Signs 12/10/24 16:06 Height 5 ft 7 in Weight 260 lb 2.327 oz BMI 40.7 BP 120/76 Blood Pressure Location Rt brachial Position Sitting Pulse 85 Pulse Source Pulse Oximeter Pulse Oximetry (%) 96 Oxygen Delivery Method Room Air Intake Visit Reasons: thyroid US results/weight management Intake Note: Patient present today for thyroid US results and weight management office visit. Health Program Analyst Required: No Accompanied by: Self / Same As Patient Allergies ketoprofen Allergy (Mild, Verified 11/18/24 09:33) Swelling Medication List - Last Reconciled 12/10/24 by Cherry Martinez MD carvedilol 12.5 mg PO BID cholecalciferol (vitamin D3) 50 mcg PO DAILY dapagliflozin propanediol (Farxiga) 10 mg PO DAILY rosuvastatin 40 mg PO DAILY sacubitril-valsartan 24-26 mg (Entresto) 1 tab PO BID spironolactone 25 mg PO DAILY tirzepatide (Mounjaro) 5 mg (0.5 mL) subcut QWEEK HPI Comments Details: 53-year-old female coming in today for follow up of nontoxic multinodular goiter and obesity. Multinodular goiter Per patient was diagnosed with Graves disease 2009, was one year at that time , and then was trying for second , was seeing endo at [facility], was never started on any medicine. Per patient was reccomended radio active iodine but was a new mom so decided not to get it at the time . Was also diagnosed with thyroid nodules in 2022, per patient had US at [facility] and had FNA biopsy of2 nodules , at [facility] in 08/2022, left lower 3.9 cm nodule was ND , and right lower 4.9 cm was benign. this was being managed by PCP, apparently had surveillance US in 2023 with stable nodules, I dont have this US , this per patient. Patient currently denies heat or cold intolerance, diarrhea or constipation, hair loss, anxiety, mood changes, changes in appearance of eyes or vision changes, tremors, increased diaphoresis or dry skin. ? Intermittent palpitations. Reports low energy Endorses some difficulty swallowing for a couple of years, pills , dry bites. Reports intermittent raspiness. No fullness or pressure sensation. Patient denies any history of childhood neck radiation. Denies having ever used lithium, amiodarone or biotin supplements. Patient denies any family history of thyroid cancer. Mother: thyroidectomy for nodules? Maternal GM: thyroidectomy for nodules? Sister : lobectomy for nodules? Was in [place] during [place], got iodine prophylaxis. TSH 1.01 from Mar 2024 Interval history Labs 10/07/24: thyroid function normal TSH and free t4, undetectable TSI, TPO , TSH receptor antibodies Status post thyroid ultrasound 12/03/2024, I reviewed the images myself which showed a right lower pole 3.4 cm nodule, solid hypoechoic, TR 4 category. This has been biopsied before in 2022 and was benign. Size remained stable. The left lower pole nodule is not measured as it was reported previously at 4.9 cm, likely it is a pseudonodule. There is a left midpole 1.2 cm TR 3 nodule that does not meet criteria for FNA. At this point we will continue due to surveillance ultrasounds. Obesity BMI 43.4 kg per m2 Current weight 276 lb no weight loss meds tried before Current weight is highest weight per patient Lowest weight she remembers was 235 lbs in 2019 when she was in her 40s achieved with keto diet lost 30 lbs Was overweight growing up, mother is now overweight , but was skinny growing up, siblings also skinny , both sisters Hystrectomy at 51 due to menorrhagia, ovaries intact, some intermittent hot flashes No history of [place] or stroke. Comorbidites Type 2 DM , A1c 6.6% 02/21/24 seen on patients portal on phone done at [facility] down to 6.4 % in Mar 2024 with farxiga 10 mg daily , was on metformin in her 30s for PCOS and infertility, PCP prescribed Wegovy recently , was rejected by insurance HTN on spironolactone for 2 years , farxiga 10 mg daily since summer 2023 HLD on rosuvastatin PCOS, history of infertility Exercise : Walks an hour daily diet:currently avoiding carbs and focusing on more proteins Placing referral to asphalt screed operator. 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 [facility] Is not interested in weight loss surgery, apprehensive of it , motivated to lose weight with lifestyle modification and weight loss meds Interval history October 2024 Current weigt 273 lbs , lost 3 lbs per our scale since last visit September 2024, after 5 injections of Mounjaro 2.5 mg weely, per patient lost 10 lbs on her scale Saw nutrionist September 2024, has follow up Exercise : Walks an hour daily, now also doing weight training every other day Interval history 12/10/24 Current weight 260s lbs down from 273 lbs last visit Has follow up with asphalt screed operator Exercise : Walks an hour daily, now also doing weight training every other day Physical exam General: sitting comfortably in no acute distress HEENT: normocephalic/atraumatic, , moist oral mucosa Neck: supple, symmetrical, Cardiac: normal heart sounds Pulm: normal breath sounds B/L, no added breath sounds Abd: not distended, no tenderness, no abdominal striae Extremities: no edema, Neuro: AAO x3, Speech: normal, no facial droop, moving all 4 extremities Laboratory Tests 10/07/24 10:27 Creatinine 0.69 Estimated GFR > 60 Random Glucose 100 Hemoglobin A1c % 5.4 TSH 0.58 Free T4 0.97 Total T3 131 Thyroid Stim Immunoglob <89 Thyroid Peroxidase Ab 6 TSH Receptor Ab <1.00 Ultrasound thyroid 12/03/2024 #4 Nodule should correctly read as follows: 4. Location: Right medial isthmus. Size: 0.8 x 0.5 at 0.5 cm, volume 0.11 mL. Nodule characteristics: Composition: Spongiform (0). Echogenicity: Anechoic (0). Shape: Wider Margins: Smooth (0). Echogenic Foci: 0 ACR TI-RADS total points: 0 ACR TI-RADS category: 1 Electronically signed by: Martín Riggs MD 12/03/2024 03:12 PM EDT Addendum Dictated By: Martín Riggs MD Addendum Signed By: <Electronically signed by Martín Riggs MD in [place]> 12/03/24 1512 Addendum Cosigned By: DD/ /23/1199 TD/TT: 12/03/2410/22/1218 EXAMINATION: US THYROID CLINICAL INFORMATION: Nontoxic multinodular goiter. COMPARISON: None available. TECHNIQUE: Linear transducer grayscale and color Doppler examination with attention to the region of the thyroid. FINDINGS: SIZE: Measurements of the thyroid lobes and nodules are given in sagittal, anteroposterior and transverse dimensions respectively. Right Thyroid Lobe: 8.8 x 2.8 x 2.5 cm, volume 46.2 mL. Parenchyma: The gland echotexture is heterogeneous. Thyroid vascularity is normal. Left Thyroid Lobe: 7.6 x 2.9 x 2.7 cm, volume 43.8 mL. Parenchyma: The gland echotexture is homogeneous. Thyroid vascularity is normal. Isthmus: 1.5 cm in maximum AP dimension. Estimated total number of nodules greater than or equal to 1 cm: 3. [employer] nodules are described as follows: 1. Location: Right lower pole. Size: 3.4 x 2.7 x 2.9 cm, volume 13.7 mL. Nodule characteristics: Composition: Solid (2). Echogenicity: Hypoechoic (2). Shape: Wider but not taller Margins: Ill-defined (0). Echogenic Foci: None (0). ACR TI-RADS total points: 4 ACR TI-RADS category: 4 2. Location: Right mid pole. Size: 0.6 x 0.8 x 1.3 cm, volume 0.50 mL. Nodule characteristics: Composition: Solid (2). Echogenicity: Hyperechoic (1). Shape: Wider than taller Margins: Ill-defined (0). Echogenic Foci: None (0). ACR TI-RADS total points: 3 ACR TI-RADS category: 3 3. Location: Left midpole. Size: 1.2 x 0.8 x 1.0 cm, volume 0.50 mL. Nodule characteristics: Composition: Solid/almost completely solid (2). Echogenicity: Isoechoic (1). Shape: Wider Margins: Smooth (0). Echogenic Foci: None (0). ACR TI-RADS total points: 3 ACR TI-RADS category: 3 4. Location: Right mediastinal mass. Size: 0.8 x 0.5 at 0.5 cm, volume 0.11 mL. Nodule characteristics: Composition: Spongiform (0). Echogenicity: Anechoic (0). Shape: Wider Margins: Smooth (0). Echogenic Foci: 0 ACR TI-RADS total points: 0 ACR TI-RADS category: 1 NODES: No lymphadenopathy is seen in the tissue surrounding the thyroid gland. US/US thyroid IMPRESSION: Enlarged thyroid lobes with nonsuspicious nodules in both lobes except for the largest nodule measuring 3.4 cm right lobe lower pole right total points for entire TI-RADS 4. Recommend fine needle biopsy aspiration [facility] Medical History (Updated 10/07/24 @ 09:58 by Cherry Martinez MD) Diabetes mellitus Non-toxic multinodular goiter Obesity Surgical History (Updated 10/07/24 @ 09:07 by АННА Carlton) History of hernia surgery H/O: hysterectomy H/O knee surgery Family History (Updated 10/07/24 @ 09:08 by АННА Carlton) Mother Uterine cancer Diabetes Father Heart attack Social History (Updated 10/07/24 @ 09:10 by АННА Carlton) Alcohol intake: current Alcohol intake frequency: holidays/special occasions only Patient Tobacco Use Status: Never used Tobacco Physical Exam Vital Signs: Last Vital Signs BP 120/76 12/10/24 16:06 BMI result Body Mass Index 40.7 Assessment & Plan Assessment & Plan (1) Non-toxic multinodular goiter: Code(s): E04.2 - Nontoxic multinodular goiter Category: Medical Plan: 53-year-old female with no family history of thyroid cancer, however multiple family members with thyroid nodules, with the exposure to [place] in [place], who received iodine prophylaxis coming in for follow up of nontoxic multinodular goiter. Diagnosed in 2022. While I do not have any of her previous ultrasound results, received cytology results from [facility], status post FNA August 2022 of right lower 4.9 cm nodule which came back as benign, [place] category 2, and a left lower 3.9 cm nodule which came back as nondiagnostic, [place] category 1. She did not have repeat biopsy of the left-sided nodule. Then had an ultrasound of the thyroid again last year in 2023 at [facility] which showed stable size of the nodules. I do not have this last ultrasound from [facility]. Status post thyroid ultrasound 12/03/2024, I reviewed the images myself which showed a right lower pole 3.4 cm nodule, solid hypoechoic, TR 4 category. This has been biopsied before in 2022 and was benign. Size remained stable. The left lower pole nodule is not measured as it was reported previously at 4.9 cm, likely it is a pseudonodule. There is a left midpole 1.2 cm TR 3 nodule that does not meet criteria for FNA. At this point we will continue due to surveillance ultrasounds. She had normal TSH in March 2024, per patient she has also history of Graves disease diagnosed in 2009, where radioactive iodine was recommended but at that time she was and planning for another at age 41 so she did not want to go ahead with a it. Then she was lost to follow up. This was managed by endocrinology at [facility] at that time. Most recent blood work from September 2024 shows normal TFTs, undetectable TSH receptor, TSI and TPO antibodies so she does not have any autoimmune thyroid disease. Plan: -plan to repeat thyroid ultrasound in summer sometime around September or October (2) Obesity: Code(s): E66.9 - Obesity, unspecified Category: Medical Qualifiers: Body mass index: BMI 40.0-44.9 Obesity classification: adult class 3 (BMI >= 40) Obesity type: due to excess calories Serious obesity comorbidity presence: with serious comorbidity Qualified Code(s): E66.813 - Obesity, class 3; Z68.41 - Body mass index [BMI] 40.0-44.9, adult Plan: Patient with class 3 obesity with current BMI 42.8 kg per m2, current weight at 273 lb down from 276 lb in 4 weeks. with comorbidities of PCOS, hypertension, hyperlipidemia, type 2 diabetes mellitus, currently well-controlled on Farxiga. Patient is seeing asphalt screed operator \, she is very motivated to lose weight. Has follow up. She is already exercising with 1 hour walk daily. In addition to that she has also started resistance training as previously advised. With weightlifting. Continue current aerobic activity. She is a candidate for weight loss surgery, however she is not interested in surgery at this time. She is very motivated to lose weight and is maintaining a good exercise regimen, plus some additional information giving regarding dietary education. In addition to lifestyle modification I would strongly believe that she is an excellent candidate for weight loss medications. No family history of thyroid cancer, no personal history of pancreatitis, no history of gallstones. No current alcohol use. This would be both for given diagnosis of type 2 diabetes mellitus as well as class 3 obesity. Mounjaro started at 2.5 mg weekly mid September 2024. Increased to 5 mg weekly in October 2024. She has had 2 injections so far of this dose. She has hypertension, hyperlipidemia, type 2 diabetes mellitus currently well-controlled on Farxiga and is at very high-risk of developing cardiovascular disease and diabetes and this medication we will result in about 15-20% weight loss which would be her target. Plan: -continue Mounjaro to 5 mg weekly injection -lifestyle modification as advised above -continue follow up with asphalt screed operator Follow up in 2 months (3) Diabetes mellitus: Code(s): E11.9 - Type 2 diabetes mellitus without complications Category: Medical Qualifiers: Diabetes mellitus complication status: without complication Diabetes mellitus exterminator termite insulin use: without exterminator termite use Diabetes mellitus type: type 2 Qualified Code(s): E11.9 - Type 2 diabetes mellitus without complications Plan: It is fortunately well-controlled. Most recent A1c is 5.4% from September 2024. Her type 2 diabetes mellitus was Diagnosed in January 2024 when A1c was 6.6%, no long-term insulin use, no history of microvascular or macrovascular complications. Managed by PCP, She was started on Farxiga 10 mg daily for both control of blood pressure as well it would help with management of her diabetes mellitus. While we are prescribing her Mounjaro and we will up titrate which would help with both her diabetes and weight management, we are exclusively seeing her for weight management, and her PCP can continue to follow up other aspects of care for diabetes mellitus. Patient is agreeable to this and aware. Plan: -continue Mounjaro to 5 mg weekly injection -continue Farxiga 10 mg daily. Plan I spent 30 minutes in reviewing the record, seeing the patient and documenting in the medical record. Coding Level of Care Code Est Pt Level 4 (99551) Diagnoses Non-toxic multinodular goiter E04.2 Class 3 severe obesity due to excess calories with serious comorbidity and body mass index (BMI) of 40.0 to 44.9 in adult E66.813; Z68.41 Body mass index: BMI 40.0-44.9 Obesity classification: adult class 3 (BMI >= 40) Obesity type: due to excess calories Serious obesity comorbidity presence: with serious comorbidity Type 2 diabetes mellitus without complication, without long-term current use of insulin E11.9 Diabetes mellitus complication status: without complication Diabetes mellitus skilled nursing insulin use: without skilled nursing use Diabetes mellitus type: type 2 Time Spent (min) 30
--- OUTSIDE RECORDS SUMMARY | 2024-12-10 16:06 | XMS_ITS | Patient Health Record ---
Author Organization [facility] Address [address] [id number] Care Team Providers Care Farmworkers Name Role Phone DaughertyOnelia Primary Care Provider Allergies Allergen (clinical drug ingredient) Drug/Non Drug Allergy documented on EMR Reaction Allergy Type Onset Date Status ketoprofen Ketoprofen Unknown Drug Allergy Activ e Results Component Value Reference Range Notes Hemoglobin [id number] Reviewed date:02/23/2024 08:32:31 AM Interpretation: Performing Lab:[facility] [place], [address] [place] [address], Phone - [phone], Director - Kevin Notes/Report: Hemoglobin A1c 6.6 4.8-5.6 % . Prediabetes: 5.7 - 6.4 Diabetes: >6.4 Glycemic control for adults with diabetes: <7.0 B-Type Natriuretic Peptide-1 63290 Reviewed date:02/23/2024 08:32:31 AM Interpretation: Performing Lab:[facility] [place], [address] [place] [address], Phone - [phone], Director - Kevin Notes/Report: B-Type Natriuretic Peptide 4.1 0.0-100.0 pg/m L Siemens ADVIA Centaur XP methodology Comp. Metabolic Panel (14)-3 93602 Reviewed date:02/23/2024 08:32:31 AM Interpretation: Performing Lab:[facility] [place], [address] [facility], Phone - [phone], Director - Kevin Notes/Report: Glucose 98 70-99 [...] IU/L ALT (SGPT) 22 0-32 IU/L LP+Non-HDL Cholesterol-88943 5 Reviewed date:02/23/2024 08:32:31 AM Interpretation: Performing Lab:[facility] [place], [address] [facility], [place], Phone - [phone], Director - Kevin Notes/Report: Cholesterol, Total 234 100-199 mg/dL Triglycerides 182 0-149 mg/dL HDL Cholesterol 53 >39 mg/dL VLDL Cholesterol Pedro Pablo 33 5-40 mg/dL LDL Chol Calc (NIH) 148 0-99 mg/dL Non-HDL Cholesterol 181 0-129 mg/dL CR Knee RT 3 View Reviewed date:03/04/2024 03:23:31 PM Interpretation: Performing Lab: Notes/Report: MM Digital Mammo Screening Reviewed date:09/23/2024 10:06:59 [...] in the LEFT breast is unchanged as 2019 and considered benign. Small numbers of scattered, benign appearing microcalcifications are noted elsewhere bilaterally. No masses, suspicious groups of microcalcifications, areas of architectural distortion, skin thickening or nipple retraction are seen in either breast. IMPRESSION: 1. No mammographic evidence of malignancy. RECOMMENDATION: Annual mammographic screening BI-RADS 2 - Benign. Lay letter mailed to patient. WSN: [id number] Ordering Physician: Frank Murillo Dictated By: Chris Lovelace MD MR Knee RT WO Reviewed date:04/07/2024 11:43:02 AM Interpretation: Performing Lab: Notes/Report: Hemoglobin [id number] Reviewed date:04/24/2024 10:53:00 AM Interpretation: Performing Lab:[facility] [place], [address] [place] [address], Phone - [phone], Director - Kevin Notes/Report: Hemoglobin A1c 6.4 4.8-5.6 % . Prediabetes: 5.7 - 6.4 Diabetes: >6.4 Glycemic control for adults with diabetes: <7.0 Magnesium-342842 Reviewed date:04/24/2024 10:53:00 AM Interpretation: Performing Lab:[facility] [place], [address] [place] [address], Phone - [phone], Director - Kevin Notes/Report: Magnesium 2.1 1.6-2.3 mg/dL CBC With Differential/Platel et-148542 Reviewed date:04/24/2024 10:53:00 AM Interpretation: Performing Lab:[facility] [place], [address] [place] [address], [place], Phone - [phone], Director - Kevin Notes/Report: WBC 14.3 3.4-10.8 x10E3/uL RBC 5.28 [...] Grans (Abs) 0.1 0.0-0.1 x10E3/uL Albumin/Creatinine Ratio,Uri ne-857663 Reviewed date:04/24/2024 10:53:00 AM Interpretation: Performing Lab:[facility] [place], [address] [place] [address], Phone - [phone], Director - MDJodry Notes/Report: Creatinine, Urine 109.0 Not Estab. mg/dL Albumin, Urine 16.2 Not Estab. ug/mL Alb/Creat Ratio 15 0-29 mg/g creat Normal: 0 - 29 Moderately increased: 30 - 300 Severely increased: >300 B-Type Natriuretic Peptide-1 81321 Reviewed date:04/24/2024 10:53:00 AM Interpretation: Performing Lab:[facility] [place], [address] [place] [address], Phone - [phone], Director - MDJodry Notes/Report: B-Type Natriuretic Peptide 14.5 0.0-100.0 pg/m L Siemens ADVIA Centaur XP methodology Comp. Metabolic Panel (14)-3 48987 Reviewed date:04/24/2024 10:53:00 AM Interpretation: Performing Lab:[facility] [place], [address] [place] [address], Phone - [phone], Director - MDJodry Notes/Report: Glucose 75 70-99 mg/dL BUN 12 [...] IU/L ALT (SGPT) 14 0-32 IU/L LP+Non-HDL Cholesterol-82586 5 Reviewed date:04/24/2024 10:53:00 AM Interpretation: Performing Lab:[facility] [place], [address] [place] [address], Phone - [phone], Director - MDJodry Notes/Report: Cholesterol, Total 140 100-199 mg/dL Triglycerides 120 0-149 mg/dL HDL Cholesterol 59 >39 mg/dL VLDL Cholesterol Pedro Pablo 21 5-40 mg/dL LDL Chol Calc (NIH) 60 0-99 mg/dL Non-HDL Cholesterol 81 0-129 mg/dL UA/M w/rflx Culture, Routine -044277 Reviewed date:04/24/2024 10:53:00 AM Interpretation: Performing Lab:[facility] [place], [address] [place] [address], Phone - [phone], Director - MDJodry Notes/Report: Specific [place] 1.017 1.005-1.030 pH 5.5 5.0-7.5 Urine-Color Yellow [...] forming units per mL TSH reflex to [id number] Reviewed date:04/24/2024 10:53:00 AM Interpretation: Performing Lab:[facility], [address] [place] [address], Phone - [phone], Director - Jodry Notes/Report: TSH 1.100 0.450-4.500 uIU/mL US Thyroid Reviewed date:05/23/2024 11:19:24 AM Interpretation: Performing Lab: Notes/Report: CBC With Differential/Platel et-563426 Reviewed date:08/17/2024 02:52:02 PM Interpretation: Performing Lab:[facility] [place], [address] [facility], [place], Phone - [phone], Director - DCSidra Notes/Report: WBC 13.1 3.4-10.8 x10E3/uL RBC 5.56 [...] granulocytes without clinical significance.) B-Type Natriuretic Peptide-1 60085 Reviewed date:08/17/2024 02:52:02 PM Interpretation: Performing Lab:[facility] [place], [address] [facility], [place], Phone - [phone], Director - Kevin Notes/Report: B-Type Natriuretic Peptide 16.6 0.0-100.0 pg/m L Siemens ADVIA Centaur XP methodology Comp. Metabolic Panel (14)-3 Reviewed date:08/17/2024 02:52:02 PM Interpretation: Performing Lab:[facility] Mata [address] [place] [address], Phone - [phone], Director - MDAngeliney Notes/Report: Glucose 146 70-99 mg/dL BUN 13 [...] 0-40 IU/L ALT (SGPT) 14 0-32 IU/L Hemoglobin [id number] Reviewed date:08/17/2024 02:52:01 PM Interpretation: Performing Lab:[facility] Mata [address] [place] [address], Phone - [phone], Director - Cyndiey Notes/Report: Hemoglobin A1c 6.0 4.8-5.6 % . Prediabetes: 5.7 - 6.4 Diabetes: >6.4 Glycemic control for adults with diabetes: <7.0 Vitamin Q74-990430 Reviewed date:08/17/2024 02:52:01 PM Interpretation: Performing Lab:[facility] [place] [address] [place] [address], Phone - [phone], Director - MDGiseledry Notes/Report: Vitamin B12 429 300-6823 pg/mL Urinalysis, Complete-028951 Reviewed date:08/17/2024 02:52:01 PM Interpretation: Performing Lab:[facility] [place] [address] [place] [address], Phone - [phone], Director - Jodry Notes/Report: Specific [place] >=1.030 1.005-1.030 pH 5.5 5.0-7.5 Urine-Color Yellow [...] None seen /lpf Bacteria Moderate None seen/Few Testosterone-616846 Reviewed date:08/17/2024 02:52:01 PM Interpretation: Performing Lab:Andre Mata [address] [place] [address], Phone - [phone], Director - Kevin Notes/Report: Testosterone 4 4-50 ng/dL Luteinizing Hormone(LH)-0042 83 Reviewed date:08/17/2024 02:52:01 PM Interpretation: Performing Lab:[facility] [address] [place] [address], Phone - [phone], Director - Kevin Notes/Report: LH 16.5 Adult Female Range Follicular phase 2.4 - 12.6 Ovulation phase 14.0 - 95.6 Luteal phase 1.0 - 11.4 Postmenopausal 7.7 - 58.5 FSH-114459 Reviewed date:08/17/2024 02:52:01 PM Interpretation: Performing Lab:[facility] [address] [place] [address], Phone - [phone], Director - Kevin Notes/Report: FSH 8.7 Adult Female Range Follicular phase 3.5 - 12.5 Ovulation phase 4.7 - 21.5 Luteal phase 1.7 - 7.7 Postmenopausal 25.8 - 134.8 Progesterone-874865 Reviewed date:08/17/2024 02:52:01 PM Interpretation: Performing Lab:[facility] [place] [address] [place] [address], Phone - [phone], Director - Jamdry Notes/Report: Progesterone 0.4 Follicular phase 0.1 - 0.9 Luteal phase 1.8 - 23.9 Ovulation phase 0.1 - 12.0 First trimester 11.0 - 44.3 Second trimester 25.4 - 83.3 Third trimester 58.7 - 214.0 Postmenopausal 0.0 - 0.1 Estrogens, Total-278632 Reviewed date:08/17/2024 02:52:01 PM Interpretation: Performing Lab:[facility] [place], [address] [place] [address] [place], Phone - [phone], Director - MDJodry Notes/Report: Estrogens, Total 348 Prepubertal < 40 Female Cycle: 1-10 Days 16 - 328 11-20 Days 34 - 501 21-30 Days 48 - 350 Post-Menopausal 40 - 244 CBC With Differential/Platel et-783794 Reviewed date:08/17/2024 02:52:01 PM Interpretation: Performing Lab:[facility], [address] [place] [address], Phone - [phone], Director - Kevin Notes/Report: WBC 10.8 3.4-10.8 [...] Grans (Abs) 0.1 0.0-0.1 x10E3/uL Vitamin D, 06-[id number] Reviewed date:08/17/2024 02:52:02 PM Interpretation: Performing Lab:[facility] [address] [place] [address], [place], Phone - [phone], Director - MDJodry Notes/Report: Vitamin D, 25-Hydroxy 32.9 30.0-100.0 ng/mL Vitamin D deficiency has been defined by the [place] of [employer] and an Endocrine Society practice guideline as a level of serum 25-OH vitamin D less than 20 ng/mL (1,2). The Endocrine Society went on to further define vitamin D insufficiency as a level between 21 and 29 ng/mL (2). 1. IOM ([place] of [employer]). 2010. Dietary reference intakes for calcium and D. [place]: The National Academies Press. 2. Latasha MF, Digna MARSHALL, Nasim JULIO, et al. Evaluation, treatment, and prevention of vitamin D deficiency: an Endocrine Society clinical practice guideline. JCEM. 2010; 96(7):1911-30. Albumin/Creatinine Ratio,Uri ne-142013 Reviewed date:08/17/2024 02:52:02 PM Interpretation: Performing Lab:[facility] [address], Phone - [phone], Director - Kevin Notes/Report: Creatinine, Urine 109.5 Not Estab. mg/dL Albumin, Urine 8.1 Not Estab. ug/mL Alb/Creat Ratio 7 0-29 mg/g creat Normal: 0 - 29 Moderately increased: 30 - 300 Severely increased: >300 B-Type Natriuretic Peptide-1 02855 Reviewed date:08/17/2024 02:52:02 PM Interpretation: Performing Lab:[facility] [place], Phone - [phone], - Kevin Notes/Report: B-Type Natriuretic Peptide 16.0 0.0-100.0 pg/m L Siemens ADVIA Centaur XP methodology HCV Antibody RFX to Quant PC [id number] Reviewed date:08/17/2024 02:52:02 PM Interpretation: Performing Lab:[facility] [address], Phone - [phone], Director - Kevin Notes/Report: HCV Ab Non Reactive Non Reactive Interpretation: Not infected with HCV unless early or acute infection is suspected (which may be delayed in an immunocompromised individual), or other evidence exists to indicate HCV infection. Comp. Metabolic Panel (14)-3 50817 Reviewed date:08/17/2024 02:52:02 PM Interpretation: Performing Lab:[facility] [place], [address] [facility], Phone - [phone], Director - MDAngeliney Notes/Report: Glucose 102 70-99 mg/dL BUN 10 [...] IU/L ALT (SGPT) 20 0-32 IU/L LP+Non-HDL Cholesterol-91222 5 Reviewed date:08/17/2024 02:52:02 PM Interpretation: Performing Lab:[facility] [place], [address] [facility], Phone - [phone], Director - MDJodry Notes/Report: Cholesterol, Total 152 100-199 mg/dL Triglycerides 163 0-149 mg/dL HDL Cholesterol 54 >39 mg/dL VLDL Cholesterol Pedro Pablo 28 5-40 mg/dL LDL Chol Calc ([facility]) 70 0-99 mg/dL Non-HDL Cholesterol 98 0-129 mg/dL TSH reflex to [id number] Reviewed date:08/17/2024 02:52:02 PM Interpretation: Performing Lab:[facility] [place], [address] [facility], Phone - [phone], Director - MDJodry Notes/Report: TSH 1.120 0.450-4.500 uIU/mL MRI Joint [...] patellar cartilage. 5. Tiny Baer cyst. WSN: [id number] Ordering Physician: Onelia Daugherty Dictated By: Edmund JIMENEZ, Jose Bravo US Soft Tissue Reviewed date:08/17/2024 02:52:02 PM Interpretation: Performing Lab: Notes/Report: US Soft Tissue Head/Neck Indication: NONTOXIC DIFFUSE GOITER; Clinical Question(s): Other: COMPARISON: 11/07/2023 FINDINGS: RIGHT THYROID LOBE: 7.7 x 3.2 x 3.4 cm, volume 44.1 cc. Nodule findings detailed below. Surrounding thyroid demonstrates heterogeneous echotexture. Normal parenchymal vascularity. Nodule #1: Mid-gland, 2 x 1 x 1.5 cm, solid, isoechoic, not unwqbf-vcie-clmu, ill-defined margin, no echogenic foci. TI-RADS Category 3. This nodule previously measured 1.9 x 1.3 x 1 cm. LEFT THYROID LOBE: 7.1 x 2.9 x 3.1 cm, volume 33.0 cc. Normal homogeneous echotexture. Normal parenchymal vascularity. Nodule #1: Mid-gland, 1.1 x 0.9 x 1.2 cm, solid, isoechoic, not ralwsy-mmyy-wcvz, ill-defined margin, no echogenic foci. TI-RADS Category 3. This nodule previously measured 1.1 x 0.7 x 1.1 cm and is stable. ISTHMUS: Thickness: 1.1 cm. IMPRESSION: Diffusely enlarged thyroid. TiRADS Category 3 nodule on the right is stable from prior study. Recommend follow-up ultrasound in 3 years. TI-RADS 2017 reference: Jenise FN, Wood WD, Shakir EG, et al. ACR Thyroid Imaging, Reporting and Data System (TI-RADS): White Paper of the ACR TI-RADS Committee. J Am Charmaine Radiol. Volume 14, Issue 5 , 587 595. https://doi.org/10.1016/j.jacr.[email or web address] ACR TI-RADS recommendations: TR1 and [...] and I agree with this report. WSN: [id number] Ordering Physician: Frank Murillo Dictated By: Won Barnett MD Knee 3 Views Right Reviewed date:02/21/2024 01:46:56 PM Interpretation: Performing Lab: Notes/Report: Knee 3 Views Right Reason: pain COMPARISON: None. FINDINGS: There is no evidence of acute or healing fracture, dislocation or bone lesion. Mild tricompartmental degenerative osteoarthritis but no evidence of osteochondral defect or intra-articular loose body. No evidence of joint effusion. IMPRESSION: Mild tricompartmental degenerative osteoarthritis but no acute abnormality. WSN: [id number] Ordering Physician: Onelia Daugherty Dictated By: Mj Parnell MD, V Reason For Referral Reason meniscal tear, stres s fracture, edema, and cartilage involvement [facility] faxed Diagnosis 1 Pain in right knee ( M25.561) Referral Organization [facility] Referring Provider First Name Onelia Referring Provider Last Name Dat Referring Provider Speciality Nurse Prac titioner Referred Provider Specialty Orthopedic S urgery General Notes [facility], Missy 03/01 04:33:40 PM >faxed with [facility] referral, [...] Provider Specialty Orthopedic [facility]gery [facility]2023 11:36:53 AM > pt has appointment pending, Addressed To : Dat Rousseau, Good morning, , Just want to let you know that I have an appointment scheduled at [facility]., Thank you,, Alejandra [...] Provider Specialty Orthopedic S urgery General Notes [facility] 03/31 11:52:40 AM >Faxed to [facility] with Referral form Referral Priority Routine Referral Appointment Date 05/09/2024 Reason Patient requesting r eferral to [facility] to discuss injectable medication for underlying BMI and hx of CHF and well as thyroid goiter and previous nodules faxed Diagnosis [address] (E04.0) Referral Organization [facility] Referring Provider First Name Onelia Referring Provider Last Name Dat Referring Provider Speciality Nurse Justin geronimo Referred Provider [facility] Endocrinology, D iabetes Olancha Referred Provider Specialty Endocrinolog y General Notes [facility] 06/29 01:24:47 PM >faxed Referral Priority Routine Referral Appointment Date 10/07/2024 Reason Any provider for rain ual skin check request made by patient faxed Diagnosis 1 Melanocytic nevi, un specified (D22.9) Referral Organization [facility] Referring Provider First Name Onelia Referring Provider Last Name Dat Referring Provider Speciality Nurse Justin geronimo Referred Provider Mo Tian Referred Provider Specialty Dermatology General Notes [facility] 06/29 12:59:37 PM >faxed Referral Priority Routine [...] Vaccine Route Administration Date Status Comme nts Influenza-Afluria (IIV4) Unknown 02/18/2021 Administere d Td (adult), absorbed Unknown 03/12/2020 Administered Influenza-Afluria (IIV4) Unknown 02/21/2023 Administere d [id number] Afluria-Single Unknown 02/24/2022 Adm inistered [id number]-75-[id number] Vaccine Unknown 08/16/2021 Administere d OEXKI-64-Ftffrmo Vaccine Unknown 06/09/2020 Administere d GDXTO-56-Yoqerhe Vaccine Unknown 05/12/2020 Administere d *Tdap Unknown 12/28/2008 Administered *Influenza-Fluzone [...] W/U Status Risk Notes Problem Simple goiter (744521724) 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) Active confirmed Problem Non-toxic single thyroid nodule (950720265) Nontoxic single thyroid nodule (E04.1) Active confirmed Problem Toxic diffuse goiter with no crisis (235850588) 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) Active confirmed Problem Hyperglycemia due to type 2 diabetes mellitus (817488057703607) Type 2 diabetes mellitus with hyperglycemia (E11.65) Active confirmed Problem Vitamin D deficiency (79928144) Vitamin D deficiency, unspecified (E55.9) Active confirmed Problem Morbid obesity (disorder) (889412802) Morbid (severe) obesity due to excess calories (E66.01) Active confirmed Problem Mixed hyperlipidemia (131513599) Mixed hyperlipidemia (E78.2) Active confirmed Problem Chronic kidney disease due to hypertension (592313514345206) Hypertensive chronic kidney disease with stage 1 through stage 4 chronic kidney disease, or unspecified chronic kidney disease (I12.9) Active confirmed Problem Dilated cardiomyopathy (992713154) Dilated cardiomyopathy (I42.0) Active confirmed Problem Chronic systolic heart failure (539869391) Chronic systolic (congestive) heart failure (I50.22) Active confirmed Problem Chronic diastolic heart failure (895039523) Chronic diastolic (congestive) heart failure (I50.32) Active confirmed Problem Chronic kidney disease stage 1 (531653764) Chronic kidney disease, stage 1 (N18.1) Active confirmed Problem Menopause (492469345) Menopausal and female climacteric states (N95.1) Active confirmed Problem Hereditary lymphedema (376423793) Hereditary lymphedema (Q82.0) Active confirmed Problem Oral phase dysphagia (693224684) Dysphagia, oral phase (R13.11) Active confirmed Problem Body mass index 40+ - severely obese (212304987) Body mass index [BMI] 45.0-49.9, adult (Z68.42) Active confirmed Vital Signs Heart Rate 87 /min 11/26/2024 Temperature 97.2 degrees Fahrenheit 11/26/2024 Oximetry 98 % 11/26/2024 Blood pressure diastolic 72 mm Hg 11/26/2024 Height 5 ft 7 in in 11/26/2024 Blood pressure systolic 122 mm Hg 11/26/2024 Weight 264 lbs 11/26/2024 BMI 41.34 kg/m2 11/26/2024 Encounters Encounter Location Date Provider Diagnosis [facility] [address] [id number] 12/27/2023 [facility] [address] [id number] 02/21/2024 [facility] [address] [id number] 02/22/2024 [facility] [address] [place] [address] [id number] 02/23/2024 [facility] [address] [id number] 03/20/2024 [facility] [address] [id number] 03/24/2024 [facility] [address] [id number] 03/31/2024 [facility] [address] [id number] 04/24/2024 [facility] [address] [place] [address] [id number] 05/16/2024 [facility] [address] [id number] 06/17/2024 [facility] [address] [id number] 08/17/2024 [facility] [address] [id number] 03/10/2024 [facility] [address] [id number] 03/14/2024 [facility] [address] [id number] 03/17/2024 [facility] [address] [id number] 03/17/2024 Onelia Murillo MD [address] [id number] 03/17/2024 Onelia Murillo MD [address] [id number] 03/24/2024 Onelia Murillo MD [address] [id number] 03/25/2024 Onelia Murillo MD [address] [id number] 03/26/2024 Onelia Murillo MD [address] [id number] 04/01/2024 Onelia Murillo MD [address] [id number] 06/23/2024 Onelia Murillo MD [address] [id number] 07/11/2024 Onelia Murillo MD [address] [id number] 08/13/2024 Onelia Daugherty Encounter for genera l [...] behavioral disorders, unspecified Z13.30 [facility] MD [address] [id number] 04/07/2024 Onelia Daugherty Hypertensive chronic kidney disease with stage 1 through stage 4 chronic kidney disease, or unspecified chronic kidney disease I12.9 ; Chronic kidney disease, stage 1 N18.1 ; Chronic systolic (congestive) heart failure I50.22 ; Dilated cardiomyopathy I42.0 and Complex tear of medial meniscus, current injury, right knee, initial encounter S83.231A [facility] MD [address] [id number] 02/20/2024 Onelia Daugherty Hypertensive chronic kidney disease [...] disease, stage 1 N18.1 Frank Murillo MD [address] [id number] 03/12/2024 Onelia Daugherty Hypertensive chronic kidney disease with stage 1 through stage 4 chronic kidney disease, or unspecified chronic kidney disease I12.9 ; Unspecified tear of unspecified meniscus, current injury, right knee, initial encounter S83.206A ; Chronic kidney disease, stage 1 N18.1 ; Hereditary lymphedema Q82.0 and Chronic systolic (congestive) heart failure I50.22 Frank Murillo MD [address] [id number] 03/19/2024 Onelia Daugherty Hypertensive chronic kidney disease with stage 1 through stage 4 chronic kidney disease, or unspecified chronic kidney disease I12.9 ; Unspecified tear of unspecified meniscus, current injury, right knee, initial encounter S83.206A ; Chronic kidney disease, stage 1 N18.1 ; Chronic systolic (congestive) heart failure I50.22 and Dilated cardiomyopathy I42.0 Frank Murillo MD [address] [id number] 03/31/2024 Onelia Daugherty Hypertensive chronic kidney disease with stage 1 through stage 4 chronic kidney disease, or unspecified chronic kidney disease I12.9 ; Chronic kidney disease, stage 1 N18.1 ; Chronic systolic (congestive) heart failure I50.22 ; Dilated cardiomyopathy I42.0 and Complex tear of medial meniscus, current injury, right knee, initial encounter S83.231A Frank Murillo MD [address] [id number] 04/17/2024 Onelia Daugherty Hypertensive chronic kidney disease [...] Cramp and spasm R25.2 Frank Murillo MD [address] [id number] 05/01/2024 Onelia Daugherty Hypertensive chronic kidney disease with stage 1 through stage 4 chronic kidney disease, or unspecified chronic kidney disease I12.9 ; Chronic kidney disease, stage 1 N18.1 ; Chronic systolic (congestive) heart failure I50.22 ; Dilated cardiomyopathy I42.0 and Complex tear of medial meniscus, current injury, right knee, initial encounter S83.231A Frank Murillo MD [address] [id number] 06/04/2024 Onelia Daugherty Hypertensive chronic kidney disease with stage 1 through stage 4 chronic kidney disease, or unspecified chronic kidney disease I12.9 ; Chronic kidney disease, stage 1 N18.1 ; Chronic systolic (congestive) heart failure I50.22 ; Dilated cardiomyopathy I42.0 and Complex tear of medial meniscus, current injury, right knee, initial encounter S83.231A Frank Murillo MD [address] [id number] 07/21/2024 Onelia Daugherty Hypertensive chronic kidney disease [...] Melanocytic nevi, unspecified D22.9 Frank Murillo MD [address] [id number] 11/26/2024 Onelia Daugherty Type 2 diabetes mellitus with hyperglycemia E11.65 ; Hypertensive chronic kidney disease with stage 1 through stage 4 chronic kidney disease, or unspecified chronic kidney disease I12.9 ; Chronic systolic (congestive) heart failure I50.22 ; Dilated cardiomyopathy I42.0 ; Nontoxic diffuse goiter E04.0 ; Hereditary lymphedema Q82.0 and Chronic kidney disease, stage 1 N18.1 Frank Murillo MD [address] [id number] 12/27/2023 Onelia Daugherty Assessments Encounter Date Diagnosis (ICD Code) Assessment Notes Treatment Notes Treatment Clinical Notes Section Notes 02/20/2024 Hypertensive chronic kidney disease with stage [...] well as carvedilol and she is to pickle maker and begin her spironolactone today for additional [...] be 76). Patient was recently approved for Farxiga and plans to pick that up from [...] comorbidities such as heart failure and hypertension 05/01/2024 Hypertensive chronic kidney disease with stage 1 through stage 4 chronic kidney disease, or unspecified chronic kidney disease (ICD-10 - I12.9) Blood pressure continues to show improvement now the patient is more compliant with her medication regimen. Patient to remain on her current medication regimen daily and plan will be for follow-up in 1 month to reassess blood pressure 06/04/2024 Hypertensive chronic kidney disease with stage [...] such as heart failure and hypertension 08/13/2024 Encounter for general adult medical examination without abnormal findings (ICD-10 - Z00.00) General healthcare up-to-date. Will obtain updated routine labs.Plan be for annual in 1 year 08/13/2024 Hypertensive chronic kidney disease with stage 1 through stage 4 chronic kidney disease, or unspecified chronic kidney disease (ICD-10 - I12.9) Blood pressure continues to improve and patient to continue with her current medication regimen. 11/26/2024 Type 2 diabetes mellitus with hyperglycemia [...] to continue with her current medication regimen. 11/26/2024 Chronic systolic (congestive) heart failure (ICD-10 [...] Entresto use and management of heart failure 03/12/2024 Chronic kidney disease, stage 1 (ICD-10 - N18.1) Stable on previous labs (level noted to be 75) 08/13/2024 Chronic systolic (congestive) heart failure (ICD-10 - I50.22) Previous Echo results suggest underlying Systolic Heart Failure with an EF of 40%-45%. Pt to continue taking Carvedilol as well as Entresto to assist with management of her underlying CHF and symptoms. Patient was previously prescribed Wegovy given her underlying heart failure diagnosis but patient's health [facility] insurance denied this. Patient is now pending an endocrinology appointment with [facility] to determine if patient can obtain [...] her underlying heart failure diagnosis but patient's [facility] insurance denied this. Patient is requesting a referral to endocrinology per [facility]'s request to see if she would benefit from beginning this injectable not only for underlying heart failure but also for her BMI. 06/04/2024 Chronic kidney disease, stage 1 (ICD-10 - N18.1) Stable on previous labs. Patient to remain on Farxiga for further kidney protection and control of comorbidities such as heart failure and hypertension 05/01/2024 Chronic kidney disease, stage 1 (ICD-10 [...] to review through a PA. 04/07/2024 Chronic kidney disease, stage 1 (ICD-10 - N18.1) Stable on previous labs (level noted to be 75). Patient to remain on Farxiga as well 03/31/2024 Chronic systolic (congestive) heart failure (ICD-10 - I50.22) Previous Echo results suggest underlying Systolic Heart Failure with an EF of 40%-45%. Pt to continue taking Carvedilol as well as Entresto to assist with management of her underlying CHF and symptoms. Patient was prescribed Wegovy and her insurance carrier continues to review through a PA. She was also prescribed Farxiga, which she will pickle maker from the pharmacy and begin today 03/19/2024 Unspecified tear of unspecified meniscus, current [...] imaging to assess for underlying meniscal tear 03/19/2024 Chronic kidney disease, stage 1 (ICD-10 [...] with lowering her BMI and CHF management 02/20/2024 Body mass index [BMI] 45.0-49.9, adult (ICD-10 - Z68.42) Patient was previously evaluated by weight management facility through [facility] and she states she does not [...] learn proper administration of this weekly injection 03/12/2024 Hereditary lymphedema (ICD-10 - Q82.0) Pt continues to be followed by Lymph Edema specialist at [facility]. She recently stopped with PT and continues using her leg wraps and feels improvement in leg swelling due to lymphedema 03/19/2024 Chronic systolic (congestive) heart failure (ICD-10 [...] and to help lower her BMI 05/01/2024 Chronic systolic (congestive) heart failure (ICD-10 - I50.22) Previous Echo results suggest underlying Systolic Heart Failure with an EF of 40%-45%. Pt to continue taking Carvedilol as well as Entresto to assist with management of her underlying CHF and symptoms. Patient was prescribed Wegovy and her insurance carrier continues to review through a PA. 06/04/2024 Chronic systolic (congestive) heart failure (ICD-10 [...] Patient is requesting an updated referral to [facility] endocrinology to discuss beginning this medication has helped him but will not approve this without endocrinology evaluation 08/13/2024 Dilated cardiomyopathy (ICD-10 - I42.0) See plan above.Patient to remain on current medication regimen and discussed in length that patient would benefit from semaglutide therapy given underlying heart failure. Patient is pending an appointment with 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 Patient is followed by [facility] and is pending an updated thyroid ultrasound to reassess thyroid nodules 03/12/2024 Chronic systolic (congestive) heart failure (ICD-10 [...] management of comorbidities such as heart failure 08/13/2024 Chronic kidney disease, stage 1 (ICD-10 [...] she is to follow-up with Dr. Merino 06/04/2024 Dilated cardiomyopathy (ICD-10 - I42.0) See [...] and to help lower her BMI 04/17/2024 Complex tear of medial meniscus, current injury, right knee, initial encounter (ICD-10 - S83.231A) Patient was recently evaluated by [facility] as well as [facility] due [...] [place] for further evaluation of meniscal tear 04/07/2024 Dilated cardiomyopathy (ICD-10 - I42.0) See [...] - S83.231A) Patient was recently evaluated by [facility] due to right knee pain and [...] her left knee. [facility]ed [facility] [place] and provided them with patient's information and [...] failure and to help lower her BMI 02/20/2024 Morbid (severe) obesity due to excess calories (ICD-10 - E66.01) See plan above 02/20/2024 Hereditary lymphedema (ICD-10 - Q82.0) Pt continues to be followed by Lymph Edema specialist at [facility]. She recently stopped with PT and continues using her leg wraps and feels improvement in leg swelling. 04/07/2024 Complex tear of medial meniscus, current injury, right knee, initial encounter (ICD-10 - S83.231A) Patient was recently evaluated by [facility] as well as [facility] due [...] give the cortisone injection time to work 04/17/2024 Mixed hyperlipidemia (ICD-10 - E78.2) Patient continues to take rosuvastatin without any negative side effects. Will obtain an updated lipid panel to ensure improvement in her LDL level since increasing her statin dose 05/01/2024 Complex tear of medial meniscus, current [...] her symptoms worsen or new symptoms begin 06/04/2024 Complex tear of medial meniscus, current [...] Patient is requesting possible referral placed to [facility] endocrinology per patient's request 08/13/2024 Complex [...] by Lymph Edema specialist at [facility]. She previously completed a course of physical therapy at the lymphedema clinic and continues to use her compression wraps and leg wraps to overall improve her lymphedema and swelling symptoms 11/26/2024 Chronic kidney disease, stage 1 (ICD-10 - N18.1) GFR stable on most recent labs 08/13/2024 Dysphagia, oral phase (ICD-10 - R13.11) Patient previously evaluated by GI and underwent an Endoscopy. Patient states after undergoing her endoscopy and having her esophagus stretched her dysphagia and reflux have improved. Patient to continue taking her PPI as needed and to follow-up with any worsening reflux symptoms 07/21/2024 Melanocytic nevi, unspecified (ICD-10 - D22.9) Patient is requesting referral for a birdcage assembler to complete annual skin checks. 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 Patient previously requested referral to [facility] and referral was placed per patient's request 04/17/2024 Cramp and spasm (ICD-10 - R25.2) Patient does have intermittent lower extremiity cramping and encouraged patient to continue magnesium glycinate 400 mg daily to further assist in managing her intermittent episodes of cramping. Will also obtain a magnesium level to determine if patient has underlying concerns of low magnesium levels 02/20/2024 Mixed hyperlipidemia (ICD-10 - E78.2) Patient [...] by Lymph Edema specialist at [facility]. She previously completed a course of [...] Patient completed her colonoscopy in 2023 through [facility] gastroenterology and she is up-to-date with colon cancer screenings at this time 08/13/2024 Encounter for screening mammogram for malignant neoplasm of breast (ICD-10 - Z12.31) Patient is due for an updated mammogram and order placed to [facility] location to ensure patient remains up-to-date [...] removed during the surgery. Patient to contact [facility] ACCESS SERVICES ASSISTANT and schedule a Pap smear if warranted [...] A1C 11/26/2024 Next Appt Details Provider Name:Onelia Daugherty , 02/25/2025 11:30:00 AM, [address] [place] [address], [phone], Provider Name:Onelia Daugherty , 08/26/2025 10:30:00 AM, [address] [place] [address], [phone], Insurance Providers Payer Name Payer Address Payer Phone Subscriber Number Group Number Insured Name Patient Relationship to Insured Coverage Start Date Coverage End Date [facility] [address] [place] [phone] [id number] Alejandra Thomas Self - patient is the [...]
== END 2024-12-10 16:19 | disposition home or self-care (01) ==
LOC: HO.ENCR 16:04
PROVIDERS: PCP Internal Medicine; Visit Provider Student in an Organized Health Care Education/Training Program
DX: E04.2 Nontoxic multinodular goiter (principal); E66.813 Obesity, class 3; Z68.41 Body mass index [BMI] 40.0-44.9, adult; E11.9 Type 2 diabetes mellitus without complications
CPT/HCPCS: 99214

== ENCOUNTER 2024-12-17 08:24 | Outpatient (AMB) | payer OTHER, SELFPAY ==
--- OUTSIDE RECORDS SUMMARY | 2024-12-12 09:57 | XMS_ITS ---
Author Organization Frank Murillo MD Address [address] [place] [phone] Care Team Providers Care Steelworker Name Role Phone Onelia Daugherty Primary Care Provider [phone] Allergies Allergen (clinical drug ingredient) Drug/Non Drug Allergy documented on EMR Reaction Allergy Type Onset Date Status ketoprofen Ketoprofen Unknown Drug Allergy Activ e REASON FOR VISIT *Farxiga PA Medications Medication SIG (Take, Route, Fr equency, Duration) Notes Start Date End Date Status Farxiga 10 MG 1 tablet Orally Once a day; Duration: 30 days 04/14/2025 Active Encounters Encounter Location Date Provider Diagnosis Frank Murillo MD [address] [phone] 12/12/2024 Onelia Daugherty Chronic systolic (congestive) heart failure I50.22 Assessments Encounter Date Diagnosis (ICD Code) Assessment Notes Treatment Notes Treatment Clinical Notes Section Notes 12/12/2024 Chronic systolic (congestive) heart failure (ICD-10 - I50.22) Plan Of Treatment Medication Medication Name Sig Start Date Stop Date Notes Farxiga 10 MG 1 tablet Orally Once a day; Duration: 30 days 04/14/2025 Next Appt Details Provider Name:Onelia Daugherty , 02/25/2025 11:30:00 AM, [address] [place] [address], [phone], Provider Name:Onelia Daugherty , 08/26/2025 10:30:00 AM, [address] [place] [address], [phone], Progress Notes * Anibal DIAZB:1970 (53 yo F)Acc No.[id number]:12/12/2024 Patient: Alejandra GONZALEZ :1970 A ge:53 Y S ex:Female Address:[address] [place] [id number] * Refills Refill Farxiga Tablet, 10 MG, Orally, 30, 1 tablet, Once a day, 30 days, Refills=3 Subjective: * Chief Complaints: * * Farxiga PA * Medical History: * Surgical History: * Hospitalization/Major Diagno stic Procedure: * Medications: * Allergies: K etoprofenno[Allergies Verified] Objective: * Vitals: Past Vitals:* 11/26/2024 Temp:97.2F, HR:87/min, BP:12 2/72mm Hg, Wt:264lbs, BMI:41.34Index, Ht:5 ft 7 in, Oxygen sat %:98% * 08/13/2024 Temp:96.0F, HR:77/min, BP:12 2/68mm Hg, Wt:268lbs, BMI:41.97Index, Ht:5 ft 7 in, Oxygen sat %:98% * 07/21/2024 Temp:96.0F, HR:70/min, BP:12 6/74mm Hg, Wt:273lbs, BMI:42.75Index, Ht:5 ft 7 in, Oxygen sat %:98% * Physical Examination: Assessment: * Assessment: 1. C hronic systolic (congestive) heart failure - I50.22 Plan: * Treatment: * Procedure Codes: * true * Date: Generated for Adilson holcomb/Samia/eTransmitting on: 0 12/17/2024 09:02 AM EDT
--- OUTSIDE RECORDS SUMMARY | 2024-12-16 23:59 | XMS_ITS | Continuity of Care Document ---
Author Organization [facility] Address [address] [place] [address] [address] [place] [address]- Care Team Providers Care Biodiesel Technology Manager Name Role Phone Dat WHITTAKER, Onelia Gomez Primary Care Physician Encounter [facility] ACCT R [id number] Date(s): 12/09/24 - 12/16/24 [facility] [address] [place] [address]- Attending Physician: Jaylon Lanza MD Referring Physician: Herson Farrell MD Encounter Type: Office Visit Allergies, Adverse Reactions, Alerts Substance Criticality Severity Reaction Reaction Severity Status ketoprofen swelling Active Solu-MEDROL tongue/ throat swelling, ichty, hot flashes, elevated B/P Active ketorolac tachycardia and flushing Flushing, tachecardia Active Adhesive Bandage Rash and bu rn on skin Band Aid-Rash/Burn Active Other Environmental Allergy itchy eyes and runny nose seasonal Active Medications carvedilol 12.5 mg oral tablet 180 each, 0 Refill(s), TAKE 1 TABLET BY MOUTH TWICE DAILY WITH FOOD, Refills 0, 10/25/23 4:14:00 PM EDT, Partial fill upon patient request if the prescription is for a schedule II opioid drug. Start Date: 10/25/23 Status: Ordered Repeat number: 1 cholecalciferol 2000 intl units oral tablet 2 Unknown, 0 Refill(s), 0 Refills, 08/25/23 8:00:00 PM EDT, Partial fill upon patient request if theprescription is for a schedule II opioid drug. Start Date: 08/25/23 Status: Ordered Repeat number: 1 Entresto 24 mg-26 mg oral tablet 60 each, 0 Refill(s), TAKE 1 TABLET BY MOUTH TWICE DAILY, 0 Refills, 10/25/23 4:14:00 PM EDT, Partial fill upon patient request if the prescription is for a schedule II opioid drug. Start Date: 10/25/23 Status: Ordered Repeat number: 1 Vitamin D3 oral tablet 1 tablet = 10 mcg, By Mouth, Daily, 0 Refills, Maintenance, 10/25/23 4:14:00 PM EDT, Partial fill upon patient request if the prescription is for a schedule II opioid drug. Start Date: 10/25/23 Status: Ordered Repeat number: 1 Problem List Condition Confirmation Course Effective Dates Status Health St atus Informant Acquired lymphedema of leg Confirmed Active Female infertility associated with anovulation Confirmed Active PCOS - Polycystic ovarian syndrome Confirmed Active Severe obesity Confirmed Active Social History Social History Type Response Smoking Status Never (less than 100 in lifetime) entered on: 05/07/20 Sex Sex Representation Female (finding) Implantable Device List Procedure Provider Procedure Date Device Type Site Repair Hernia Diaphragmatic Laparoscopic Michele Alonso MD 12/08/20 Unknown Abdomen Device Identifier Serial Number Lot or Batch Number Manufacturing Date Expiration Date Distinct Identification Code MRI Safety Implantable Status Assigning Authority Unknown Unknown [id number] Unknown 04/26/22 Unknown Unknown Active Unknown Patient Care team information Care Team Personnel Name: Dat WHITTAKER, Onelia Gomez Position: [facility] PCO Associate Professional Member Role: PCP Address: [address] [place] [address] Frank Murillo MD [address] Telecom: Name: Ravi Rashid RN Position: S RN Member Role: Primary Care Nurse Name: Ava Antunez RN Position: [facility] RN Member Role: Primary Care Nurse Care Team Related Persons Name: RADHA DIAZ Name: STATES, NO ONE Insurance Providers Guarantor name: IZZY EMILY Health Plan Information #: 1 Payer: [facility] PPO Payer Identifier: NA Member Number: [id number] Group Number: [id number] Subscriber Identifier: [id number] Relationship to Subscriber: self Coverage Type: Other Private Insurance Coverage Verification Date: Telecom: NA Address:
--- NOTE | 2024-12-17 08:29 | A.OFFVIS_ITS ---
VS Expanded 12/17/24 08:35 Height 5 ft 7 in Weight 258 lb 6.108 oz BMI 40.5 Intake Visit Reasons: obesity/diabetes Allergies ketoprofen Allergy (Mild, Verified 11/18/24 09:33) Swelling Nutrition Presentation Details: Pt presents for MNT f/u for obesity. 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 Pt also has type 2 DM pt on [facility]. Pt reports not monitoring bg, sometimes may have symptoms of shakiness which she treats by having juice/snack Pt reports working on having a meal routine Protein per day ,not counting but working on including food sources of protein in each meal Fluids: 60 oz/day (tea, water, flavored infused water) physical activity 3 times a week, 1 hr (combination aerobic and anaerobic exercises) BS Monitoring Most Recent Diabetes Results: Creatinine, (0.5-1.4) 0.69 mg/dL 10/07/24 BUN, (9-16) 11 mg/dL 10/07/24 Sodium, (135-145) 143 mmol/L 10/07/24 Potassium, (3.3-5.1) 4.5 mmol/L 10/07/24 Chloride, (96-108) 108 mmol/L 10/07/24 Carbon Dioxide, (22-29) 27 mmol/L 10/07/24 Calcium, (8.4-10.2) 9.7 mg/dL 10/07/24 [facility] Medical History (Updated 10/07/24 @ 09:58 by Cherry Martinez MD) Diabetes mellitus Non-toxic multinodular goiter Obesity Surgical History (Updated 10/07/24 @ 09:07 by АННА Carlton) History of hernia surgery H/O: hysterectomy H/O knee surgery Family History (Updated 10/07/24 @ 09:08 by АННА Carlton) Mother Uterine cancer Diabetes Father Heart attack Social History (Updated 10/07/24 @ 09:10 by АННА Carlton) Alcohol intake: current Alcohol intake frequency: holidays/special occasions only Patient Tobacco Use Status: Never used Tobacco Assessment & Plan Assessment & Plan (1) Diabetes mellitus: Code(s): E11.9 - Type 2 diabetes mellitus without complications Category: Medical Qualifiers: Diabetes mellitus type: type 2 Diabetes mellitus parts counterman insulin use: without jail use Diabetes mellitus complication status: without complication Qualified Code(s): E11.9 - Type 2 diabetes mellitus without complications Plan: Wt: 119 Kg ( 11/21 ), 117 kg Est kcal needs as per MSJ: 2200 (40% carb, 30% protein/fat) Est fluid needs as per 25-30 ml/d: 3500 Est prot per day as per 1 g/kg bw: 90-120 Recommend fiber intake : 8-10 g per day and gradually increase to 25-28 g per day for women and 35-38 g for men or as tolerated Recommend sodium intake per day : less than 2300 mg Educated patient on: ( R = reviewed V = verbalizes understanding N/R = needs review N/A = not applicable * Food sources of carbohydrate, adequate serving sizes and its role in various health conditions: R * Differences between complex carbohydrates a simple carbohydrates, role of fiber in diet: R * Hydration : R * Lean protein sources of foods: R * Differences between types of fats and role in diet (mono on saturated fat fatty acids, saturated fatty acids, trans fats): R * Food sources of sodium in salt and healthy modifications for heart health in kidney health: R V R/V * Vitamins and minerals: R V N/R * Healthy plate method concept: R * Physical activity: Benefits a precaution: R, V * Hypoglycemia protocol (rule of 15): R - Pt was advised to monitor BG to self assess low blood sugar (low blood sugar is less than 70, if having low blood sugar then treat by having 1/2 cup of juice or 3-4 glucose tablets, wait 15 minutes and recheck blood sugar, repeat treatment if blood sugar continues below 70. Notify your doctor of any low blood sugar levels for further asessment * Dietary prevention of Hyperglycemia: R Patient Instructions: Work on having a meal routine (3 meals/day and 1 snack if needed) following healthy plate method Aim at includin -100 g of protein per day (dairy, eggs, poultry/legumes/lean beef, oats Caution with fats added to the foods , caution with amount of hidden fats monitor your blood sugar to asses low blood sugar, treat low blood sugar following rule of 15 and notify your doctor of any low blood sugar, for further asessment Coding Level of Care Code Nutr Indiv Subseq (15624) Diagnoses Type 2 diabetes mellitus without complication, without long-term current use of insulin E11.9 Diabetes mellitus type: type 2 Diabetes mellitus parts counterman insulin use: without jail use Diabetes mellitus complication status: without complication Time Spent (min) 30
[2024-12-17 08:35] VITALS: BMI 40.5
== END 2024-12-17 08:55 | disposition home or self-care (01) ==
LOC: HO.ENCR 08:24
PROVIDERS: PCP Internal Medicine; Visit Provider Dietitian, Registered
DX: E11.9 Type 2 diabetes mellitus without complications (principal)

== ENCOUNTER → 2024-12-17 08:24 | Outpatient (BNVA) | payer OTHER, SELFPAY | PROVIDERS: PCP Internal Medicine; Visit Provider Dietitian, Registered | DX: E66.9 Obesity, unspecified (principal); E11.9 Type 2 diabetes mellitus without complications; Z68.41 Body mass index [BMI] 40.0-44.9, adult; Z79.84 Long term (current) use of oral hypoglycemic drugs; Z79.4 Long term (current) use of insulin; Z71.3 Dietary counseling and surveillance | CPT/HCPCS: 97803 ==

== ENCOUNTER 2025-02-10 09:21 | Outpatient (AMB) | payer OTHER, SELFPAY ==
--- OUTSIDE RECORDS SUMMARY | 2024-07-01 09:00 | XMS_ITS ---
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 Name Role Phone Dat Onelia Primary Care Provider [phone] REASON FOR VISIT 1m f/u knee per [facility] Encounters Encounter Location Date Provider Diagnosis Frank Murillo MD [address] [place] [address] [place] [address] [phone] 07/01/2024 Onelia Daugherty Plan Of Treatment Next Appt Details Provider Name:Onelia Daugherty , 02/25/2025 11:30:00 AM, [address] [place] [address], [phone], Provider Name:Onelia Daugherty , 08/26/2025 10:30:00 AM, [address] [place] [address], [phone], Progress Notes * Ellen DIAZaDOB:1970 (54 yo F)Acc No.[id number]:07/01/2024 Progress Note Patient: Alejandra GONZALEZ Appointment Provider: Morenita Daugherty DNP :1970 A ge:53 Y S ex:Female Date:07/01/2024 Address:[address] [place], [place]-[id number] Subjective: * Chief Complaints: * 1 . 1m f/u knee per [facility]. * Medical History: Objective: * Vitals: Past Vitals:* 06/04/2024 Temp:97.6F, HR:88/min, BP:12 6/76mm Hg, Wt:273lbs, BMI:42.75Index, Ht:5 ft 7 in, Oxygen sat %:98% * 05/01/2024 Temp:96.9F, HR:95/min, BP:12 8/76mm Hg, Ht:5 ft 7 in, Oxygen sat %:98% * 04/17/2024 Temp:97.3F, HR:83/min, BP:13 2/78mm Hg, Wt:273lbs, BMI:42.75Index, Ht:5 ft 7 in, Oxygen sat %:98% Assessment: Plan: * Treatment: * Images: Billing Information: * Visit Code: * Procedure Codes: Care Plan Details* * Electronic signature of Lisa Daugherty DNP on 02/10/2025 at 10:14 AM EDT Sign off status: Pending * Appointment Provider: Morenita Daugherty DNP Date: 0 07/01/2024 Generated for Adilson holcomb/Samia/Antonio on: 1 10:14 AM EDT
[2025-02-10 09:31] VITALS: BP 114/68; PULSE 77; O2SAT 98; BMI 41.0
--- NOTE | 2025-02-10 09:31 | A.OFFVIS_ITS ---
Vital Signs 3 02/10/25 09:31 Height 5 ft 7 in Weight 261 lb 14.546 oz BMI 41.0 BP 114/68 Blood Pressure Location Rt brachial Position Sitting Pulse 77 Pulse Source Pulse Oximeter Pulse Oximetry (%) 98 Oxygen Delivery Method Room Air Intake Visit Reasons: Non-toxic multinodular goiter, weight management Intake Note: Patient present today for Non-toxic multinodular goiter and weight management office visit. 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 Multinodular goiter Per patient was diagnosed with Graves disease 2009, was one year at that time , and then was trying for second , was seeing endo at [facility], was never started on any medicine. Per patient was reccomended radio active iodine but was a new mom so decided not to get it at the time . Was also diagnosed with thyroid nodules in 2022, per patient had US at [facility] and had FNA biopsy of2 nodules , at [facility] in 08/2022, left lower 3.9 cm nodule was ND , and right lower 4.9 cm was benign. this was being managed by PCP, apparently had surveillance US in 2023 with stable nodules, I dont have this US , this per patient. Patient currently denies heat or cold intolerance, diarrhea or constipation, hair loss, anxiety, mood changes, changes in appearance of eyes or vision changes, tremors, increased diaphoresis or dry skin. ? Intermittent palpitations. Reports low energy Endorses some difficulty swallowing for a couple of years, pills , dry bites. Reports intermittent raspiness. No fullness or pressure sensation. Patient denies any history of childhood neck radiation. Denies having ever used lithium, amiodarone or biotin supplements. Patient denies any family history of thyroid cancer. Mother: thyroidectomy for nodules? Maternal GM: thyroidectomy for nodules? Sister : lobectomy for nodules? Was in [place] during [place], got iodine prophylaxis. TSH 1.01 from Mar 2024 Interval history Labs 10/07/24: thyroid function normal TSH and free t4, undetectable TSI, TPO , TSH receptor antibodies Status post thyroid ultrasound 12/03/2024, I reviewed the images myself which showed a right lower pole 3.4 cm nodule, solid hypoechoic, TR 4 category. This has been biopsied before in 2022 and was benign. Size remained stable. The left lower pole nodule is not measured as it was reported previously at 4.9 cm, likely it is a pseudonodule. There is a left midpole 1.2 cm TR 3 nodule that does not meet criteria for FNA. At this point we will continue due to surveillance ultrasounds. Obesity BMI 43.4 kg per m2 Current weight 276 lb no weight loss meds tried before Current weight is highest weight per patient Lowest weight she remembers was 235 lbs in 2019 when she was in her 40s achieved with keto diet lost 30 lbs Was overweight growing up, mother is now overweight , but was skinny growing up, siblings also skinny , both sisters Hystrectomy at 51 due to menorrhagia, ovaries intact, some intermittent hot flashes No history of [place] or stroke. Comorbidites Type 2 DM , A1c 6.6% 02/21/24 seen on patients portal on phone done at [facility] down to 6.4 % in Mar 2024 with farxiga 10 mg daily , was on metformin in her 30s for PCOS and infertility, PCP prescribed Wegovy recently , was rejected by insurance HTN on spironolactone for 2 years , farxiga 10 mg daily since summer 2023 HLD on rosuvastatin PCOS, history of infertility Exercise : Walks an hour daily diet:currently avoiding carbs and focusing on more proteins Placing referral to boarding mother. 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 [facility] Is not interested in weight loss surgery, apprehensive of it , motivated to lose weight with lifestyle modification and weight loss meds Interval history October 2024 Current weigt 273 lbs , lost 3 lbs per our scale since last visit September 2024, after 5 injections of Mounjaro 2.5 mg weely, per patient lost 10 lbs on her scale Saw nutrionist September 2024, has follow up Exercise : Walks an hour daily, now also doing weight training every other day Interval history 12/10/24 Current weight 260s lbs down from 273 lbs last visit Has follow up with boarding mother Exercise : Walks an hour daily, now also doing weight training every other day Interval history 02/10/2025 Mounjaro increased to 7.5 mg weekly 01/20/2025 Current weight 261 lb stable from last visit in November 2024 Current BMI 41.0 kilogram/meters squared Following with boarding mother regularly Exercise Walks an hour daily, now also doing weight training every other day also now signed up for gym due to weather Physical exam General: sitting comfortably in no acute distress HEENT: normocephalic/atraumatic, , moist oral mucosa Neck: supple, symmetrical, Cardiac: normal heart sounds Pulm: normal breath sounds B/L, no added breath sounds Abd: not distended, no tenderness, no abdominal striae Extremities: no edema, Neuro: AAO x3, Speech: normal, no facial droop, moving all 4 extremities Laboratory Tests 10/07/24 10:27 Creatinine 0.69 Estimated GFR > 60 Random Glucose 100 Hemoglobin A1c % 5.4 TSH 0.58 Free T4 0.97 Total T3 131 Thyroid Stim Immunoglob <89 Thyroid Peroxidase Ab 6 TSH Receptor Ab <1.00 Ultrasound thyroid 12/03/2024 #4 Nodule should correctly read as follows: 4. Location: Right medial isthmus. Size: 0.8 x 0.5 at 0.5 cm, volume 0.11 mL. Nodule characteristics: Composition: Spongiform (0). Echogenicity: Anechoic (0). Shape: Wider Margins: Smooth (0). Echogenic Foci: 0 ACR TI-RADS total points: 0 ACR TI-RADS category: 1 Electronically signed by: Martín Riggs MD 12/03/2024 03:12 PM EDT Addendum Dictated By: Martín Riggs MD Addendum Signed By: <Electronically signed by Martín Riggs MD in [place]> 12/03/24 1512 Addendum Cosigned By: DD/ /23/1199 TD/TT: 12/03/2410/22/1218 EXAMINATION: US THYROID CLINICAL INFORMATION: Nontoxic multinodular goiter. COMPARISON: None available. TECHNIQUE: Linear transducer grayscale and color Doppler examination with attention to the region of the thyroid. FINDINGS: SIZE: Measurements of the thyroid lobes and nodules are given in sagittal, anteroposterior and transverse dimensions respectively. Right Thyroid Lobe: 8.8 x 2.8 x 2.5 cm, volume 46.2 mL. Parenchyma: The gland echotexture is heterogeneous. Thyroid vascularity is normal. Left Thyroid Lobe: 7.6 x 2.9 x 2.7 cm, volume 43.8 mL. Parenchyma: The gland echotexture is homogeneous. Thyroid vascularity is normal. Isthmus: 1.5 cm in maximum AP dimension. Estimated total number of nodules greater than or equal to 1 cm: 3. 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 Location: Right lower pole. Size: 3.4 x 2.7 x 2.9 cm, volume 13.7 mL. Nodule characteristics: Composition: Solid (2). Echogenicity: Hypoechoic (2). Shape: Wider but not taller Margins: Ill-defined (0). Echogenic Foci: None (0). ACR TI-RADS total points: 4 ACR TI-RADS category: 4 2. Location: Right mid pole. Size: 0.6 x 0.8 x 1.3 cm, volume 0.50 mL. Nodule characteristics: Composition: Solid (2). Echogenicity: Hyperechoic (1). Shape: Wider than taller Margins: Ill-defined (0). Echogenic Foci: None (0). ACR TI-RADS total points: 3 ACR TI-RADS category: 3 3. Location: Left midpole. Size: 1.2 x 0.8 x 1.0 cm, volume 0.50 mL. Nodule characteristics: Composition: Solid/almost completely solid (2). Echogenicity: Isoechoic (1). Shape: Wider Margins: Smooth (0). Echogenic Foci: None (0). ACR TI-RADS total points: 3 ACR TI-RADS category: 3 4. Location: Right mediastinal mass. Size: 0.8 x 0.5 at 0.5 cm, volume 0.11 mL. Nodule characteristics: Composition: Spongiform (0). Echogenicity: Anechoic (0). Shape: Wider Margins: Smooth (0). Echogenic Foci: 0 ACR TI-RADS total points: 0 ACR TI-RADS category: 1 NODES: No lymphadenopathy is seen in the tissue surrounding the thyroid gland. US/US thyroid IMPRESSION: Enlarged thyroid lobes with nonsuspicious nodules in both lobes except for the largest nodule measuring 3.4 cm right lobe lower pole right total points for entire TI-RADS 4. Recommend fine needle biopsy aspiration [facility] Medical History Diabetes mellitus Non-toxic multinodular goiter Obesity Surgical History History of hernia surgery H/O: hysterectomy H/O knee surgery Family History Mother Uterine cancer Diabetes Father Heart attack Social History Alcohol intake: current Alcohol intake frequency: holidays/special occasions only Patient Tobacco Use Status: Never used Tobacco Physical Exam Vital Signs: Last Vital Signs Pulse 77 02/10/25 09:31 BP 114/68 02/10/25 09:31 Pulse Ox 98 02/10/25 09:31 Oxygen Delivery Method Room Air 02/10/25 09:31 BMI result Body Mass Index 41.0 Assessment & Plan Assessment & Plan (1) Non-toxic multinodular goiter: Code(s): E04.2 - Nontoxic multinodular goiter Category: Medical Plan: 54-year-old female with no family history of thyroid cancer, however multiple family members with thyroid nodules, with the exposure to [place] in [place], who received iodine prophylaxis coming in for follow up of nontoxic multinodular goiter. Diagnosed in 2022. While I do not have any of her previous ultrasound results, received cytology results from [facility], status post FNA August 2022 of right lower 4.9 cm nodule which came back as benign, [place] category 2, and a left lower 3.9 cm nodule which came back as nondiagnostic, [place] category 1. She did not have repeat biopsy of the left-sided nodule. Then had an ultrasound of the thyroid again last year in 2023 at [facility] which showed stable size of the nodules. I do not have this last ultrasound from [facility]. Status post thyroid ultrasound 12/03/2024, I reviewed the images myself which showed a right lower pole 3.4 cm nodule, solid hypoechoic, TR 4 category. This has been biopsied before in 2022 and was benign. Size remained stable. The left lower pole nodule is not measured as it was reported previously at 4.9 cm, likely it is a pseudonodule. There is a left midpole 1.2 cm TR 3 nodule that does not meet criteria for FNA. At this point we will continue due to surveillance ultrasounds. She had normal TSH in March 2024, per patient she has also history of Graves disease diagnosed in 2009, where radioactive iodine was recommended but at that time she was and planning for another at age 41 so she did not want to go ahead with a it. Then she was lost to follow up. This was managed by endocrinology at [facility] at that time. Most recent blood work from September 2024 shows normal TFTs, undetectable TSH receptor, TSI and TPO antibodies so she does not have any autoimmune thyroid disease. Plan: -plan to repeat thyroid ultrasound in summer sometime around September or October (2) Obesity: Code(s): E66.9 - Obesity, unspecified Category: Medical Qualifiers: Obesity type: due to excess calories Obesity classification: adult class 3 (BMI >= 40) Serious obesity comorbidity presence: with serious comorbidity Body mass index: BMI 40.0-44.9 Qualified Code(s): E66.813 - Obesity, class 3; Z68.41 - Body mass index [BMI] 40.0-44.9, adult Plan: Patient with class 3 obesity with current BMI 41.0 kilogram/meters squared, current weight 261 lb down from 42.8 kg per m2, current weight at 273 lb down from 276 lb in in September 2024. with comorbidities of PCOS, hypertension, hyperlipidemia, type 2 diabetes mellitus, currently well-controlled on Farxiga. Patient is seeing boarding mother \, she is very motivated to lose weight. Has follow up. She is already exercising with 1 hour walk daily. In addition to that she has also started resistance training as previously advised. With weightlifting. Continue current aerobic activity. Plus resistance training She is a candidate for weight loss surgery, however she is not interested in surgery at this time. She is very motivated to lose weight and is maintaining a good exercise regimen, plus some additional information giving regarding dietary education. In addition to lifestyle modification I would strongly believe that she is an excellent candidate for weight loss medications. No family history of thyroid cancer, no personal history of pancreatitis, no history of gallstones. No current alcohol use. This would be both for given diagnosis of type 2 diabetes mellitus as well as class 3 obesity. Mounjaro started at 2.5 mg weekly mid September 2024. Increased to 5 mg weekly in October 2024. Increased to 7.5 mg weekly injection in December 2024, she has had about 4 weeks of this dose. Weight has plateaued since the last dose change in remains at 261 lb. We will go up on the dose. She has hypertension, hyperlipidemia, type 2 diabetes mellitus currently well- controlled on Farxiga and is at very high-risk of developing cardiovascular disease and diabetes and this medication we will result in about 15-20% weight loss which would be her target. Plan: -increase Mounjaro to 10 mg weekly injection -lifestyle modification as advised above -continue follow up with boarding mother Follow up in 4 months (3) Diabetes mellitus: Code(s): E11.9 - Type 2 diabetes mellitus without complications Category: Medical Qualifiers: Diabetes mellitus type: type 2 Diabetes mellitus press tender long goods insulin use: without press tender long goods use Diabetes mellitus complication status: without complication Qualified Code(s): E11.9 - Type 2 diabetes mellitus without complications Plan: It is fortunately well-controlled. Most recent A1c is 5.4% from September 2024. Her type 2 diabetes mellitus was Diagnosed in January 2024 when A1c was 6.6%, no long-term insulin use, no history of microvascular or macrovascular complications. Managed by PCP, She was started on Farxiga 10 mg daily for both control of blood pressure as well it would help with management of her diabetes mellitus. While we are prescribing her Mounjaro and we will up titrate which would help with both her diabetes and weight management, we are exclusively seeing her for weight management, and her PCP can continue to follow up other aspects of care for diabetes mellitus. Patient is agreeable to this and aware. Plan: -increase Mounjaro to 10 mg weekly injection -continue Farxiga 10 mg daily. Plan See above Medications: New 2 tirzepatide (Mounjaro) 10 mg (0.5 mL) subcut QWEEK 2 mL 4RF E11.9 - Type 2 diabetes mellitus without complications, E66.813 - Obesity, class 3, Z68.41 - Body mass index [BMI] 40.0-44.9, adult Discontinued 2 tirzepatide (Mounjaro) Discontinued Reason: Doctor's Order 7.5 mg (0.5 mL) subcut QWEEK 2 mL 5RF Coding Level of Care Code Est Pt Level 4 (10487) Diagnoses Non-toxic multinodular goiter E04.2 Class 3 severe obesity due to excess calories with serious comorbidity and body mass index (BMI) of 40.0 to 44.9 in adult E66.813; Z68.41 Obesity type: due to excess calories Obesity classification: adult class 3 (BMI >= 40) Serious obesity comorbidity presence: with serious comorbidity Body mass index: BMI 40.0-44.9 Type 2 diabetes mellitus without complication, without long-term current use of insulin E11.9 Diabetes mellitus type: type 2 Diabetes mellitus press tender long goods insulin use: without long-term use Diabetes mellitus complication status: without complication
--- OUTSIDE RECORDS SUMMARY | 2025-02-10 10:14 | XMS_ITS | Patient Health Record ---
Author Organization [facility] Address [address] [id number] Care Team Providers Care Tile Conduit Layer Name Role Phone DaughertyOnelia Primary Care Provider Allergies Allergen (clinical drug ingredient) Drug/Non Drug Allergy documented on EMR Reaction Allergy Type Onset Date Status ketoprofen Ketoprofen Unknown Drug Allergy Activ e Results Component Value Reference Range Notes Hemoglobin [id number] Reviewed date:02/23/2024 08:32:31 AM Interpretation: Performing Lab:[facility], [address] [place] [address], Phone - [phone], Director - Kevin Notes/Report: Hemoglobin A1c 6.6 4.8-5.6 % . Prediabetes: 5.7 - 6.4 Diabetes: >6.4 Glycemic control for adults with diabetes: <7.0 B-Type Natriuretic Peptide-1 31878 Reviewed date:02/23/2024 08:32:31 AM Interpretation: Performing Lab:[facility], [address] [place] [address], Phone - [phone], Director - Kevin Notes/Report: B-Type Natriuretic Peptide 4.1 0.0-100.0 pg/m L Siemens ADVIA Centaur XP methodology Comp. Metabolic Panel (14)-3 24421 Reviewed date:02/23/2024 08:32:31 AM Interpretation: Performing Lab:[facility], [address] [facility], Phone - [phone], Director - Kevin Notes/Report: Glucose 98 70-99 [...] IU/L ALT (SGPT) 22 0-32 IU/L LP+Non-HDL Cholesterol-14800 5 Reviewed date:02/23/2024 08:32:31 AM Interpretation: Performing Lab:Andre Mata, [address] [facility], Phone - [phone], Director - Kevin Notes/Report: Cholesterol, Total 234 100-199 mg/dL Triglycerides 182 0-149 mg/dL HDL Cholesterol 53 >39 mg/dL VLDL Cholesterol Pedro Pablo 33 5-40 mg/dL LDL Chol Calc (NIH) 148 0-99 mg/dL Non-HDL Cholesterol 181 0-129 mg/dL CR Knee RT 3 View Reviewed date:03/04/2024 03:23:31 PM Interpretation: Performing Lab: Notes/Report: CBC With Differential/Platel et-748303 Reviewed date:08/17/2024 02:52:02 PM Interpretation: Performing Lab:Andre Mata, [address] [facility], Phone - [phone], Director - MDJodry Notes/Report: WBC 13.1 3.4-10.8 x10E3/uL RBC 5.56 [...] granulocytes without clinical significance.) B-Type Natriuretic Peptide-1 55182 Reviewed date:08/17/2024 02:52:02 PM Interpretation: Performing Lab:[facility], [address] [place] [address], Phone - [phone], Director - MDJodry Notes/Report: B-Type Natriuretic Peptide 16.6 0.0-100.0 pg/m L Siemens ADVIA Centaur XP methodology Comp. Metabolic Panel (14)-3 76096 Reviewed date:08/17/2024 02:52:02 PM Interpretation: Performing Lab:[facility], [address] [place] [address], Phone - [phone], Director - MDJodry Notes/Report: Glucose 146 70-99 [...] 1 x 1.5 cm, solid, isoechoic, not eqzncm-snhi-lewq, ill-defined margin, no echogenic foci. TI-RADS Category 3. This nodule previously measured 1.9 x 1.3 x 1 cm. LEFT THYROID LOBE: 7.1 x 2.9 x 3.1 cm, volume 33.0 cc. Normal homogeneous echotexture. Normal parenchymal vascularity. Nodule #1: Mid-gland, 1.1 x 0.9 x 1.2 cm, solid, isoechoic, not bfgdtk-fsox-dnlw, ill-defined margin, no echogenic foci. TI-RADS Category 3. This nodule previously measured 1.1 x 0.7 x 1.1 cm and is stable. ISTHMUS: Thickness: 1.1 cm. IMPRESSION: Diffusely enlarged thyroid. TiRADS Category 3 nodule on the right is stable from prior study. Recommend follow-up ultrasound in 3 years. TI-RADS 2017 reference: Tiffanysler FN, Wood WD, [...] and I agree with this report. WSN: [id number] Ordering Physician: Frank Murillo Dictated By: Won Barnett MD MR Knee RT WO Reviewed date:04/07/2024 11:43:02 AM Interpretation: Performing Lab: Notes/Report: Hemoglobin [id number]-[id number] Reviewed date:04/24/2024 10:53:00 AM Interpretation: Performing Lab:[facility], [address] [place] [address], Phone - [phone], Director - Kevin Notes/Report: Hemoglobin A1c 6.4 4.8-5.6 % . Prediabetes: 5.7 - 6.4 Diabetes: >6.4 Glycemic control for adults with diabetes: <7.0 Magnesium-597341 Reviewed date:04/24/2024 10:53:00 AM Interpretation: Performing Lab:[facility], [address] [place] [address], Center, Phone - [phone], Director - MDAngeliney Notes/Report: Magnesium 2.1 1.6-2.3 mg/dL CBC With Differential/Platel et-591939 Reviewed date:04/24/2024 10:53:00 AM Interpretation: Performing Lab:[facility], [address] [place] [address], Phone - [phone], Director - MDJodry Notes/Report: WBC 14.3 3.4-10.8 [...] Grans (Abs) 0.1 0.0-0.1 x10E3/uL Albumin/Creatinine Ratio,Uri ne-736455 Reviewed date:04/24/2024 10:53:00 AM Interpretation: Performing Lab:[facility], [address] [place] [address], Phone - [phone], Director - MDJodry Notes/Report: Creatinine, Urine 109.0 Not Estab. mg/dL Albumin, Urine 16.2 Not Estab. ug/mL Alb/Creat Ratio 15 0-29 mg/g creat Normal: 0 - 29 Moderately increased: 30 - 300 Severely increased: >300 B-Type Natriuretic Peptide-1 62659 Reviewed date:04/24/2024 10:53:00 AM Interpretation: Performing Lab:[facility] [address] [place] [address], Phone - [phone], Director - MDJodry Notes/Report: B-Type Natriuretic Peptide 14.5 0.0-100.0 pg/m L Siemens ADVIA Centaur XP methodology Comp. Metabolic Panel (14)-3 50078 Reviewed date:04/24/2024 10:53:00 AM Interpretation: Performing Lab:[facility] [address] [place] [address], Phone - [phone], Director - MDJodry Notes/Report: Glucose 75 70-99 [...] IU/L ALT (SGPT) 14 0-32 IU/L LP+Non-HDL Cholesterol-61821 5 Reviewed date:04/24/2024 10:53:00 AM Interpretation: Performing Lab:[facility], [facility], Center, Phone - [phone], Director - MDJoy Notes/Report: Cholesterol, Total 140 100-199 mg/dL Triglycerides 120 0-149 mg/dL HDL Cholesterol 59 >39 mg/dL VLDL Cholesterol Pedro Pablo 21 5-40 mg/dL LDL Chol Calc (NIH) 60 0-99 mg/dL Non-HDL Cholesterol 81 0-129 mg/dL UA/M w/rflx Culture, Routine -026192 Reviewed date:04/24/2024 10:53:00 AM Interpretation: Performing Lab:[facility], [facility], Center, Phone - [phone], Director - MDJoy Notes/Report: Specific [place] 1.017 1.005-1.030 pH 5.5 5.0-7.5 Urine-Color Yellow [...] forming units per mL TSH reflex to [id number] Reviewed date:04/24/2024 10:53:00 AM Interpretation: Performing Lab:[facility], Phone - [phone], Director - [facility] Notes/Report: TSH 1.100 0.450-4.500 uIU/mL US Thyroid Reviewed date:05/23/2024 11:19:24 AM Interpretation: Performing Lab: Notes/Report: Hemoglobin [id number]-091748 Reviewed date:08/17/2024 02:52:01 PM Interpretation: Performing Lab:[facility], Phone - [phone], Director - NVAngeline Notes/Report: Hemoglobin A1c 6.0 4.8-5.6 % . Prediabetes: 5.7 - 6.4 Diabetes: >6.4 Glycemic control for adults with diabetes: <7.0 Vitamin C91-477330 Reviewed date:08/17/2024 02:52:01 PM Interpretation: Performing Lab:[facility], Phone - [phone], Director - Cyndie Notes/Report: Vitamin B12 219 573-4358 pg/mL Urinalysis, Complete-858864 Reviewed date:08/17/2024 02:52:01 PM Interpretation: Performing Lab:[facility] [address], Phone - [phone], Director - Cyndie Notes/Report: Specific [place] >=1.030 1.005-1.030 pH 5.5 5.0-7.5 Urine-Color Yellow [...] None seen /lpf Bacteria Moderate None seen/Few Testosterone-570715 Reviewed date:08/17/2024 02:52:01 PM Interpretation: Performing Lab:[facility], Phone - [phone], Director - Kevin Notes/Report: Testosterone 4 4-50 ng/dL Luteinizing Hormone(LH)-0042 83 Reviewed date:08/17/2024 02:52:01 PM Interpretation: Performing Lab:[facility] [address] [place] [address], Phone - [phone], Director Ayla Brown Notes/Report: LH 16.5 Adult Female Range Follicular phase 2.4 - 12.6 Ovulation phase 14.0 - 95.6 Luteal phase 1.0 - 11.4 Postmenopausal 7.7 - 58.5 FSH-006693 Reviewed date:08/17/2024 02:52:01 PM Interpretation: Performing Lab:[facility] [address] [place] [address], Phone - [phone], Director Ayla Brown Notes/Report: FSH 8.7 Adult Female Range Follicular phase 3.5 - 12.5 Ovulation phase 4.7 - 21.5 Luteal phase 1.7 - 7.7 Postmenopausal 25.8 - 134.8 Progesterone-848991 Reviewed date:08/17/2024 02:52:01 PM Interpretation: Performing Lab:[facility] [address] [place] [address], Phone - [phone], - Kevin Notes/Report: Progesterone 0.4 Follicular phase 0.1 - 0.9 Luteal phase 1.8 - 23.9 Ovulation phase 0.1 - 12.0 First trimester 11.0 - 44.3 Second trimester 25.4 - 83.3 Third trimester 58.7 - 214.0 Postmenopausal 0.0 - 0.1 Estrogens, Total-527348 Reviewed date:08/17/2024 02:52:01 PM Interpretation: Performing Lab:[facility] [address] [place] [address], Phone - [phone], Director Ayla Brown Notes/Report: Estrogens, Total 348 Prepubertal < 40 Female Cycle: 1-10 Days 16 - 328 11-20 Days 34 - 501 21-30 Days 48 - 350 Post-Menopausal 40 - 244 CBC With Differential/Platel et-289844 Reviewed date:08/17/2024 02:52:01 PM Interpretation: Performing Lab:[facility] [address] [place] [address], Phone - [phone], Director Ayla Brown Notes/Report: WBC 10.8 3.4-10.8 x10E3/uL RBC 5.12 [...] Grans (Abs) 0.1 0.0-0.1 x10E3/uL Vitamin D, 28-Oqxedyv-793745 Reviewed date:08/17/2024 02:52:02 PM Interpretation: Performing Lab:[facility], [address] [place] [address], Center, Phone - [phone], Director - Kevin Notes/Report: Vitamin D, 25-Hydroxy 32.9 30.0-100.0 ng/mL Vitamin D deficiency has been defined by the [place] of [employer] and an Endocrine Society practice guideline as a level of serum 25-OH vitamin D less than 20 ng/mL (1,2). The Endocrine Society went on to further define vitamin D insufficiency as a level between 21 and 29 ng/mL (2). 1. IOM ([place] of [employer]). 2010. Dietary reference intakes for calcium and D. [place]: The National Academies Press. 2. Latasha MF, Digna NC, Nasim JULIO, et al. Evaluation, treatment, and prevention of vitamin D deficiency: an Endocrine Society clinical practice guideline. JCEM. 2010; 96(7):1911-30. Albumin/Creatinine Ratio,[facility] ne-379635 Reviewed date:08/17/2024 02:52:02 PM Interpretation: Performing [facility], [address] [place] [address], Phone - [phone], Director - [facility] Notes/Report: Creatinine, Urine 109.5 Not Estab. mg/dL Albumin, Urine 8.1 Not Estab. ug/mL Alb/Creat Ratio 7 0-29 mg/g creat Normal: 0 - 29 Moderately increased: 30 - 300 Severely increased: >300 B-Type Natriuretic Peptide-1 78978 Reviewed date:08/17/2024 02:52:02 PM Interpretation: Performing Lab:[facility], [address] [place] [address], Phone - [phone], Director - [facility] Notes/Report: B-Type Natriuretic Peptide 16.0 0.0-100.0 pg/m L Siemens ADVIA Centaur XP methodology HCV Antibody RFX to Quant PC [id number] Reviewed date:08/17/2024 02:52:02 PM Interpretation: Performing Lab:[facility], [address] [place] [address], Phone - [phone], Director - [facility] Notes/Report: HCV Ab Non Reactive Non Reactive Interpretation: Not infected with HCV unless early or acute infection is suspected (which may be delayed in an immunocompromised individual), or other evidence exists to indicate HCV infection. Comp. Metabolic Panel (14)-3 51778 Reviewed date:08/17/2024 02:52:02 PM Interpretation: Performing Lab:[facility], [address] [place] [address], Phone - [phone], Director - [facility] Notes/Report: Glucose 102 70-99 mg/dL BUN 10 [...] IU/L ALT (SGPT) 20 0-32 IU/L LP+Non-HDL Cholesterol-26618 5 Reviewed date:08/17/2024 02:52:02 PM Interpretation: Performing Lab:[facility], [address] [facility], Center, Phone - [phone], Director - MDJodry Notes/Report: Cholesterol, Total 152 100-199 mg/dL Triglycerides 163 0-149 mg/dL HDL Cholesterol 54 >39 mg/dL VLDL Cholesterol Pedro Pablo 28 5-40 mg/dL LDL Chol Calc (NIH) 70 0-99 mg/dL Non-HDL Cholesterol 98 0-129 mg/dL TSH reflex to [id number] Reviewed date:08/17/2024 02:52:02 PM Interpretation: Performing Lab:[facility], [address] [facility], Center, Phone - [phone], Director - MDJodry Notes/Report: TSH 1.120 0.450-4.500 uIU/mL MM Digital [...] Benign. Lay letter mailed to patient. WSN: [id number] Ordering Physician: Frank Murillo Dictated By: Chris Lovelace MD MRI Joint Ext Lower W/O Cont rast [...] patellar cartilage. 5. Tiny Baer cyst. WSN: [id number] Ordering Physician: Onelia Daugherty Dictated By: Jose Shaffer MD Knee 3 Views Right Reviewed date:02/21/2024 [...] degenerative osteoarthritis but no acute abnormality. WSN: [id number] Ordering Physician: Onelia Daugherty Dictated By: Mj Parenll MD, V Reason For Referral Reason meniscal tear, stres s fracture, edema, and cartilage involvement [facility] faxed Diagnosis 1 Pain in right knee ( M25.561) Referral Organization [facility] Referring Provider First Name Onelia Referring Provider [...] right knee, initial encounter (S83.231A) Referral Organization Fra[facility] Referring Provider First Name Onelia Referring Provider Last Name Dat Referring Provider Speciality Nurse Justin geronimo Referred Provider Specialty Orthopedic S urgery General Notes [facility]2023 11:36:53 AM > pt has [...] Provider Specialty Orthopedic S urgery General Notes [facility] 03/31 11:52:40 AM >Faxed to [facility] with Referral form Referral Priority Routine Referral Appointment Date 05/09/2024 Reason Patient requesting r eferral to [facility] to discuss injectable medication for underlying BMI and hx of CHF and well as thyroid goiter and previous nodules faxed Diagnosis [address] (E04.0) Referral Organization Frank [facility] Referring Provider First Name Onelia Referring Provider Last Name Dat Referring Provider Speciality Nurse Justin geronimo Referred Provider [facility] Endocrinology, D iabetes Jupiter Referred Provider Specialty Endocrinolog y General Notes [facility] 06/29 01:24:47 PM >faxed Referral Priority Routine Referral Appointment Date 10/07/2024 Reason Any provider for rain ual skin check request made by patient faxed Diagnosis 1 Melanocytic nevi, un specified (D22.9) Referral Organization Frank [facility] Referring Provider First Name Onelia Referring Provider Last Name Dat Referring Provider Speciality Nurse Justin geronimo Referred Provider Mo Tian Referred Provider Specialty Dermatology General Notes [facility] 06/29 12:59:37 PM >faxed Referral Priority Routine Medications Medication SIG (Take, Route, Frequency, Duration) Notes Start Date End Date Status Pantoprazole Sodium 40 MG TAKE 1 TABLET BY MOUTH DAILY Oral; Duration: 90 Days Active Farxiga 10 MG 1 tablet Orally Once a day; Duration: 30 days 04/14/2025 Active Carvedilol 12.5 MG TAKE 1 TABLET BY SAUL TH TWICE DAILY WITH FOOD; Duration: 30 Active Vitamin D3 50 MCG (1999) TAKE 2 TABLETS BY MOUTH ONCE A DAY; Duration: 30 Active Mounjaro 5 MG/0.5ML as directed Subcutan eous weekly; Duration: 28 days Active Spironolactone 25 MG TAKE 1 TABLET BY MO UTH DAILY; Duration: 30 Active Spironolactone 25 MG 1 tablet Orally Onc e a day; Duration: 30 days Active Rosuvastatin Calcium 40 MG TAKE 1 TABLET BY MOUTH DAILY; Duration: 90 Active Entresto 24-26 MG TAKE 1 TABLET BY SAUL TH TWICE DAILY; Duration: 30 Active Immunizations Vaccine Route Administration Date Status Comme nts *Influenza-Flublok Unknown 02/28/2024 Administered *Tdap Unknown 12/28/2008 Administered NKXCN-54-Uswitcn Vaccine Unknown 05/12/2020 Administere d MMFNI-78-Mppquos Vaccine Unknown 06/09/2020 Administere d PWPIL-38-Tzfzzki Vaccine Unknown 08/16/2021 Administere d Sdzylmpdt-0833-69 Afluria-Single Unknown 02/24/2022 Adm inistered Influenza-Afluria (IIV4) [...] W/U Status Risk Notes Problem Simple goiter (520963186) 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) Active confirmed Problem Non-toxic single thyroid nodule (449831706) Nontoxic single thyroid nodule (E04.1) Active confirmed Problem Toxic diffuse goiter with no crisis (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) Active confirmed Problem Hyperglycemia due to type 2 diabetes mellitus (606974554406640) Type 2 diabetes mellitus with hyperglycemia (E11.65) Active confirmed Problem Vitamin D deficiency (03268744) Vitamin D deficiency, unspecified (E55.9) Active confirmed Problem Morbid obesity (disorder) (290860545) Morbid (severe) obesity due to excess calories (E66.01) Active confirmed Problem Mixed hyperlipidemia (097504008) Mixed hyperlipidemia (E78.2) Active confirmed Problem Chronic kidney disease due to hypertension (209529391968114) Hypertensive chronic kidney disease with stage 1 through stage 4 chronic kidney disease, or unspecified chronic kidney disease (I12.9) Active confirmed Problem Dilated cardiomyopathy (818036297) Dilated cardiomyopathy (I42.0) Active confirmed Problem Chronic systolic heart failure (864742604) Chronic systolic (congestive) heart failure (I50.22) Active confirmed Problem Chronic diastolic heart failure (582687681) Chronic diastolic (congestive) heart failure (I50.32) Active confirmed Problem Chronic kidney disease stage 1 (615760529) Chronic kidney disease, stage 1 (N18.1) Active confirmed Problem Menopause (197911726) Menopausal and female climacteric states (N95.1) Active confirmed Problem Hereditary lymphedema (324971154) Hereditary lymphedema (Q82.0) Active confirmed Problem Oral phase dysphagia (150121611) Dysphagia, oral phase (R13.11) Active confirmed Problem Body mass index 40+ - severely obese (311978851) Body mass index [BMI] 45.0-49.9, adult (Z68.42) Active confirmed Vital Signs Heart Rate 87 /min 11/26/2024 Temperature 97.2 degrees Fahrenheit 11/26/2024 Oximetry 98 % 11/26/2024 Blood pressure diastolic 72 mm Hg 11/26/2024 Height 5 ft 7 in in 11/26/2024 Blood pressure systolic 122 mm Hg 11/26/2024 Weight 264 lbs 11/26/2024 BMI 41.34 kg/m2 11/26/2024 Encounters Encounter Location Date Provider Diagnosis Frank Murillo MD [address] [id number] 02/20/2024 Onelia Daugherty Hypertensive chronic kidney disease [...] disease, stage 1 N18.1 Frank Murillo MD [address] [id number] 03/12/2024 Onelia Daugherty Hypertensive chronic kidney disease with stage 1 through stage 4 chronic kidney disease, or unspecified chronic kidney disease I12.9 ; Unspecified tear of unspecified meniscus, current injury, right knee, initial encounter S83.206A ; Chronic kidney disease, stage 1 N18.1 ; Hereditary lymphedema Q82.0 and Chronic systolic (congestive) heart failure I50.22 Frank Murillo MD [address] [id number] 03/19/2024 Onelia Daugherty Hypertensive chronic kidney disease with stage 1 through stage 4 chronic kidney disease, or unspecified chronic kidney disease I12.9 ; Unspecified tear of unspecified meniscus, current injury, right knee, initial encounter S83.206A ; Chronic kidney disease, stage 1 N18.1 ; Chronic systolic (congestive) heart failure I50.22 and Dilated cardiomyopathy I42.0 Frank Murillo MD [address] [id number] 03/31/2024 Onelia Daugherty Hypertensive chronic kidney disease with stage 1 through stage 4 chronic kidney disease, or unspecified chronic kidney disease I12.9 ; Chronic kidney disease, stage 1 N18.1 ; Chronic systolic (congestive) heart failure I50.22 ; Dilated cardiomyopathy I42.0 and Complex tear of medial meniscus, current injury, right knee, initial encounter S83.231A Frank Murillo MD [address] [id number] 04/07/2024 Onelia Daugherty Hypertensive chronic kidney disease with stage 1 through stage 4 chronic kidney disease, or unspecified chronic kidney disease I12.9 ; Chronic kidney disease, stage 1 N18.1 ; Chronic systolic (congestive) heart failure I50.22 ; Dilated cardiomyopathy I42.0 and Complex tear of medial meniscus, current injury, right knee, initial encounter S83.231A Frank Murillo MD [address] [id number] 04/17/2024 Onelia Daugherty Hypertensive chronic kidney disease [...] Cramp and spasm R25.2 Frank Murillo MD [address] [id number] 05/01/2024 Onelia Daugherty Hypertensive chronic kidney disease with stage 1 through stage 4 chronic kidney disease, or unspecified chronic kidney disease I12.9 ; Chronic kidney disease, stage 1 N18.1 ; Chronic systolic (congestive) heart failure I50.22 ; Dilated cardiomyopathy I42.0 and Complex tear of medial meniscus, current injury, right knee, initial encounter S83.231A Frank Murillo MD [address] [id number] 06/04/2024 Onelia Daugherty Hypertensive chronic kidney disease with stage 1 through stage 4 chronic kidney disease, or unspecified chronic kidney disease I12.9 ; Chronic kidney disease, stage 1 N18.1 ; Chronic systolic (congestive) heart failure I50.22 ; Dilated cardiomyopathy I42.0 and Complex tear of medial meniscus, current injury, right knee, initial encounter S83.231A Frank Murillo MD [address] [id number] 07/21/2024 Onelia Daugherty Hypertensive chronic kidney disease [...] Melanocytic nevi, unspecified D22.9 Frank Murillo MD [address] [id number] 08/13/2024 Onelia Daugherty Encounter for genera l [...] behavioral disorders, unspecified Z13.30 Frank Murillo MD [address] [id number] 11/26/2024 Onelia Daugherty Type 2 diabetes mellitus with hyperglycemia E11.65 ; Hypertensive chronic kidney disease with stage 1 through stage 4 chronic kidney disease, or unspecified chronic kidney disease I12.9 ; Chronic systolic (congestive) heart failure I50.22 ; Dilated cardiomyopathy I42.0 ; Nontoxic diffuse goiter E04.0 ; Hereditary lymphedema Q82.0 and Chronic kidney disease, stage 1 N18.1 [facility] [address] [facility] [address] [place] [address] [id number] 02/21/2024 Onelia Murillo MD [facility] [address] [facility] [address] [place] [address] [id number] 02/22/2024 Onelia Murillo MD PC [address] [facility] [address] [place] [address] [id number] 02/23/2024 Onelia Murillo MD PC [address] [facility] [address] [place] [address] [id number] 03/20/2024 Onelia Murillo MD PC [address] [place] [address] [place] [address] [id number] 03/24/2024 Onelia Murillo MD PC [address] [place] [address] [id number] 03/31/2024 Onelia Murillo MD PC [address] [place] [address] [id number] 04/24/2024 Onelia [facility] [address] [id number] 05/16/2024 Onelia Murillo MD [facility] [address] [place] [address] [id number] 06/17/2024 Onelia Mur[facility] MD [facility] [address] [id number] 08/17/2024 Onelia Murillo MD [facility] [address] [place] [address] [id number] 12/12/2024 Onelia Daugherty Chronic systolic (congestive) heart failure I50.22 [facility] [address] [id number] 03/10/2024 Onelia Murillo MD PC [address] [facility] [address] [place] [address] [id number] 03/14/2024 Onelia Murillo MD [facility] [address] [id number] 03/17/2024 Onelia [facility] [address] [id number] 03/17/2024 On[facility] [address] [id number] 03/17/2024 Onelia Murillo MD [address] [id number] 03/24/2024 Onelia Murillo MD [address] [id number] 03/25/2024 Onelia Murillo MD [address] [id number] 03/26/2024 Onelia Murillo MD [address] [id number] 04/01/2024 Onelia Murillo MD [address] [id number] 06/23/2024 Onelia Murillo MD [address] [id number] 07/11/2024 Onelia Daugherty Assessments Encounter Date Diagnosis [...] as carvedilol and she is to pickle pumper and begin her spironolactone today for additional [...] to continue with her current medication regimen. 12/12/2024 Chronic systolic (congestive) heart failure (ICD-10 - I50.22) 11/26/2024 Chronic systolic (congestive) heart failure (ICD-10 [...] underlying heart failure diagnosis but patient's health [place] insurance denied this. Patient is now pending an endocrinology appointment with [facility] to determine if patient can obtain [...] her underlying heart failure diagnosis but patient's [facility] insurance denied this. Patient is requesting a referral to endocrinology per [facility]'s request to see if she would benefit [...] also prescribed Farxiga, which she will pickle pumper from the pharmacy and begin today 04/07/2024 [...] lowering her BMI and CHF management 03/12/2024 Hereditary lymphedema (ICD-10 - Q82.0) Pt continues to be followed by Lymph Edema specialist at [facility]. She recently stopped with PT and continues using her leg wraps and feels improvement in leg swelling due to lymphedema 02/20/2024 Body mass index [BMI] 45.0-49.9, adult (ICD-10 - Z68.42) Patient was previously evaluated by weight management facility through [facility] and she states she does not [...] Patient is requesting an updated referral to [facility] endocrinology to discuss beginning this medication has helped him but will not approve this without endocrinology evaluation 05/01/2024 Chronic systolic (congestive) heart failure (ICD-10 [...] failure. Patient is pending an appointment with [facility] endocrinology to discuss beginning this medication as [facility] will not approve this as ordered through [...] with negative results. Patient is followed by [facility] and is pending an updated thyroid [...] return she is to follow-up with Dr. Mernio 06/04/2024 Dilated cardiomyopathy (ICD-10 - I42.0) See [...] - S83.231A) Patient was recently evaluated by [facility] as well as [facility] due [...] her knee, will refer pt to Dr. Greenbaucher for further evaluation of meniscal tear 05/01/2024 Dilated cardiomyopathy (ICD-10 - I42.0) See [...] - S83.231A) Patient was recently evaluated by [facility] due to right knee pain and [...] her left knee. [facility] [place] and provided them with patient's information and [...] be followed by Lymph Edema specialist at [facility]. She recently stopped with PT and continues using her leg wraps and feels improvement in leg swelling. 05/01/2024 Complex tear of medial meniscus, current [...] her symptoms worsen or new symptoms begin 04/17/2024 Mixed hyperlipidemia (ICD-10 - E78.2) Patient continues to take rosuvastatin without any negative side effects. Will obtain an updated lipid panel to ensure improvement in her LDL level since increasing her statin dose 04/07/2024 Complex tear of medial meniscus, current injury, right knee, initial encounter (ICD-10 - S83.231A) Patient was recently evaluated by [facility] as well as [facility] due [...] Patient is requesting possible referral placed to [facility] endocrinology per patient's request 08/13/2024 Complex tear [...] be followed by Lymph Edema specialist at [facility]. She previously completed a course of [...] D22.9) Patient is requesting referral for a tool repairer to complete annual skin checks. No large concerns expressed by patient other than wanting a skin check and referral to [facility] made at this time 04/17/2024 Type [...] and ultrasound. Patient previously requested referral to [facility] and referral was placed per patient's [...] be followed by Lymph Edema specialist at [facility]. She previously completed a course of [...] an underlying cause for patient's fatigue symptoms 02/20/2024 Chronic kidney disease, stage 1 (ICD-10 - N18.1) Stable on previous labs (level noted to be 75) 08/13/2024 Other fatigue (ICD-10 - R53.83) Patient [...] study if warranted after labs are reviewed 08/13/2024 Vitamin D deficiency, unspecified (ICD-10 - E55.9) Will check level to verify that there is no deficiency 08/13/2024 Encounter for screening for malignant neoplasm of colon (ICD-10 - Z12.11) Patient completed her colonoscopy in 2023 through [facility] gastroenterology and she is up-to-date with colon cancer screenings at this time 08/13/2024 Encounter for screening mammogram for malignant neoplasm of breast (ICD-10 - Z12.31) Patient is due for an updated mammogram and order placed to [facility] location to ensure patient remains up-to-date [...] removed during the surgery. 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
== END 2025-02-10 09:52 | disposition home or self-care (01) ==
LOC: HO.ENCR 09:22
PROVIDERS: PCP Internal Medicine; Visit Provider Student in an Organized Health Care Education/Training Program
DX: E04.2 Nontoxic multinodular goiter (principal); E66.813 Obesity, class 3; Z68.41 Body mass index [BMI] 40.0-44.9, adult; E11.9 Type 2 diabetes mellitus without complications
CPT/HCPCS: 99214

== ENCOUNTER 2025-03-17 08:08 | Outpatient (AMB) | payer OTHER, SELFPAY ==
--- NOTE | 2025-03-17 08:35 | MHC.AMNUTRGE ---
VS Expanded 03/17/25 08:36 Height 5 ft 7 in Weight 256 lb 4 oz BMI 40.1 Intake Visit Reasons: obesity , t2dm Allergies ketoprofen Allergy (Mild, Verified 02/10/25 09:34) Swelling Nutrition Presentation Details: Pt presents for MNT for T2DM, obesity Patient reports she is starting to have consistency in physical activity, participating at the gym, walking for 1 hour 3 times a week. Family members participating in the [place] together. Patient reports having reduced appetite since the monitor oral medication was increased and has been having 2-3 meals a day and no snacking at night. Patient denies GI symptoms. Patient has concerns about hair loss. Today we discussed foods with B vitamins and importance to maintain adequate nutrition. Patient was advised to discuss hair loss with the doctor for further evaluation food frequency fruits: 3 ,/d fish: 1-2 wk water: 32 oz /d, + tea ,soups dairy: 1-2/d (cheese, yogurt mostly B: tea , low carb bread and 1-2 eggs L: sand on low carb bread, chicken salad , green salad , water D: pasta and chicken or beef, greens, water snack:yogurt [facility] Medical History Diabetes mellitus Non-toxic multinodular goiter Obesity Surgical History History of hernia surgery H/O: hysterectomy H/O knee surgery Family History Mother Uterine cancer Diabetes Father Heart attack Social History Alcohol intake: current Alcohol intake frequency: holidays/special occasions only Patient Tobacco Use Status: Never used Tobacco Assessment & Plan Assessment & Plan (1) Diabetes mellitus: Code(s): E11.9 - Type 2 diabetes mellitus without complications Category: Medical Qualifiers: Diabetes mellitus type: type 2 Diabetes mellitus residential insulin use: without residential use Diabetes mellitus complication status: without complication Qualified Code(s): E11.9 - Type 2 diabetes mellitus without complications Plan: Wt: 119 Kg ( 11/21 ), 117 kg, 116kg (03/24) Est kcal needs as per MSJ: 2200 (40% carb, 30% protein/fat) Est fluid needs as per 25-30 ml/d: 3500 (14 cups of fluids) Est prot per day as per 1 g/kg bw: 90-120 Recommend fiber intake : 8-10 g per day and gradually increase to 25-28 g per day for women and 35-38 g for men or as tolerated Recommend sodium intake per day : less than 2300 mg Educated patient on: ( R = reviewed V = verbalizes understanding N/R = needs review N/A = not applicable Food sources of carbohydrate, adequate serving sizes and its role in various health conditions: R Differences between complex carbohydrates a simple carbohydrates, role of fiber in diet: R Hydration : R Lean protein sources of foods: R Differences between types of fats and role in diet (mono on saturated fat fatty acids, saturated fatty acids, trans fats): R Food sources of sodium in salt and healthy modifications for heart health in kidney health: R Vitamins and minerals: R Healthy plate method concept: R ,V Physical activity: Benefits a precaution: R, V Hypoglycemia protocol (rule of 15): R - Dietary prevention of Hyperglycemia: R Patient Instructions: Increase fluid intake to 8-10 cup of water per day Watch sodium intake , choose fruit in place of breads/pastries, do not add table salt to your foods Continue with physical activity at least 150 minutes per week Coding Level of Care Code Nutr Indiv Subseq ([id number]) Diagnoses Type 2 diabetes mellitus without complication, without long-term current use of insulin E11.9 Diabetes mellitus type: type 2 Diabetes mellitus residential insulin use: without termination clerk use Diabetes mellitus complication status: without complication Time Spent (min) 30
[2025-03-17 08:36] VITALS: BMI 40.1
== END 2025-03-17 09:02 | disposition home or self-care (01) ==
LOC: HO.ENCR 08:08
PROVIDERS: PCP Internal Medicine; Visit Provider Dietitian, Registered
DX: E11.9 Type 2 diabetes mellitus without complications (principal)

== ENCOUNTER → 2025-03-17 08:08 | Outpatient (BNVA) | payer OTHER, SELFPAY | PROVIDERS: PCP Internal Medicine; Visit Provider Dietitian, Registered | DX: E11.9 Type 2 diabetes mellitus without complications (principal); E66.9 Obesity, unspecified; Z71.3 Dietary counseling and surveillance | CPT/HCPCS: 97803 ==